=== PATIENT | female | born 1950 | race Caucasian/White ===

== ENCOUNTER → 2018-01-25 14:37 | Outpatient (CLI) | payer BC, SELFPAY ==
[2018-01-25 15:37] LABS: Absolute Lymphocyte Count 1.53 X10^3/ul (0.83-4.51); Absolute Neutrophil Count 2.5 X10^3/uL (2.0-7.7); Basophil# 0.02 X10^3/uL; Basophil% 0.4 % (0-1); Eosinophils% 2.1 % (0-5); Hematocrit 39.9 % (37-47); Hemoglobin 13.6 g/dl (12.0-15.0); Lymphocyte # 1.53 X10^3/ul (4.0); Lymphocyte % 32.8 % (19-41); Mean Corp Hgb Conc 34.1 g/gl (32-36); Mean Corpuscular Hgb 31.1 pg (27.0-32.0); Mean Corpuscular Volume 91.3 fL (81-99); Mean Platelet Vol. 9.2 fl (6.2-12.0); Monocyte# 0.53 X10^3/uL; Monocyte% 11.4 % (0-10); Neutrophil # 2.47 X10^3/uL (2.7-7.7); Neutrophil % 53.1 % (47-70); Platelet Count 210 K/mm3 (150-450); RBC Distribution Width CV 13.3 % (11.6-14.6); RBC Distribution Width SD 44.1 fl (35.1-43.9); Red Blood Count 4.37 M/mm3 (4.2-5.4); White Blood Count 4.7 K/mm3 (4.4-11.0)
[2018-01-25 15:47] LABS: POSITIVE COUNT NO; POSITIVE DIFFERENTIAL NO; POSITIVE MORPHOLOGY NO
[2018-01-25 16:04] LABS: ALB/GLOB Ratio 1.2 RATIO (0.9-2.4); AST(SGOT) 16 U/L (15-37); Alanine Aminotransfer ALT/SGPT 26 U/L (13-56); Albumin, Serum 3.9 g/dL (3.2-5.0); Alkaline Phosphatase 98 U/L (45-117); Anion Gap 8 (5-15); BUN 21 mg/dL (7-18); BUN/Creat Ratio 23.6 RATIO (10-20); Calcium,Total 8.8 mg/dL (8.5-10.1); Chloride 110 mmol/L (98-107); Creatinine, Serum 0.89 mg/dL (0.55-1.02); EST Glomerular Filtration Rate 68 mL/min (>60); Est Glom Filt Rate - Afr Amer 82 mL/min (>60); Globulin 3.2 g/dL (2.2-4.2); Glucose 92 mg/dL (74-106); Potassium 3.8 mmol/L (3.5-5.1); Protein, Total 7.1 g/dL (6.4-8.2); Sodium Level 145 mmol/L (136-145)
== END ==
PROVIDERS: Family Provider Family Medicine; PCP Family Medicine; Visit Provider Family Medicine
DX: R03.0 Elevated blood-pressure reading, without diagnosis of hypertension (principal)
CPT/HCPCS: 36415; 80053; 84443; 85025

== ENCOUNTER → 2018-05-20 14:39 | Outpatient (CLI) | payer BC, SELFPAY ==
--- NOTE | 2018-05-20 14:40 | BI_ITS ---
MAMMOGRAPHY - BILATERAL SCREENING 3-D TERRANCE SYNTHESIS REASON FOR EXAM: Female, 67 years old. Bilateral Screening 3-D tomosynthesis PERTINENT HISTORY: Asymptomatic. Right breast aspiration surgery 20+ years ago. No significant family history. TECHNIQUE: 2-D mammograms and 3-D Terrance synthesis of the breast (s) were performed. CAD was performed. COMPARISON: 09/09/2016. FINDINGS: The breast composition is composed of scattered fibroglandular density. Scattered benign appearing calcifications are seen. No dense spiculated dominant masses or suspicious microcalcification cluster are identified. No architectural distortion, asymmetric density, adenopathy, skin thickening or nipple retraction identified. There has been no significant change since the most recent prior study. BI/SCREENING MAMM (CAD), BILAT IMPRESSION: No mammographic sign of malignancy. Routine yearly mammograms recommended. ASSESSMENT CATEGORY: BIRADS Category 2: Benign. A letter regarding these results will be sent to the patient by the facility within 30 days. FOLLOW UP RECOMMENDATION: Yearly follow up mammogram recommended. (A) Negative mammographic results should not deter biopsy as a palpable lesion if present should be followed on clinical grounds and biopsy performed if clinically persistent for 3 months or increasing size. Approximately 10% of breast cancers are not detected by mammography. A normal mammogram should not delay biopsy of a clinically suspicious abnormality. Dense breast tissue mainstream neoplasm. Electronically Signed: Lalo Salcido, at 20:19 EDT Tel , Service support ,
== END ==
PROVIDERS: Family Provider Family Medicine; PCP Family Medicine; Referring Provider Family Medicine; Visit Provider Family Medicine
DX: Z12.31 Encounter for screening mammogram for malignant neoplasm of breast (principal)
CPT/HCPCS: 77063; 77067

== ENCOUNTER → 2018-06-28 17:12 | Outpatient (CLI) | payer BC, SELFPAY ==
--- NOTE | 2018-06-28 17:15 | RAD_ITS ---
STUDY: X-RAY - PELVIS REASON FOR EXAM: Female, 67 years old. Right hip pain TECHNIQUE: One view of the pelvis was obtained. COMPARISON: None. FINDINGS: There is a non-specific bowel gas pattern. Normal visualized soft tissue structures. Normal bilateral iliac wings, sacroiliac joints and visualized sacrum. Normal visualized bilateral superior and inferior pubic rami. Normal pubic symphysis. Normal ischial tuberosities. Normal visualized right femoral head. Normal right acetabulum. Normal right hip joint. Normal visualized left femoral head. Normal left acetabulum. Normal left hip joint. RAD/Pelvis 1 or 2 Views IMPRESSION: Normal x-ray examination of the pelvis. No fracture Electronically Signed: Thong Maguire MD at 7:28 EST Tel , Service support ,
--- NOTE | 2018-06-28 17:15 | RAD_ITS ---
STUDY: X-RAY - LUMBAR SPINE REASON FOR EXAM: Female, 67 years old. Back pain TECHNIQUE: 5 view(s) of the lumbar spine were obtained. COMPARISON: None FINDINGS: Normal lumbar lordosis. There is no substantial scoliosis. There is a normal alignment of the vertebrae. Normal vertebral bodies and endplates. Normal disc space heights. The soft tissue structures are unremarkable. RAD/L/S Spine Min 4 Views IMPRESSION: Normal x-ray examination of the lumbar spine. No fracture. No disc disease. Electronically Signed: Thong Maguire MD at 7:30 EST Tel , Service support ,
--- NOTE | 2018-06-28 17:15 | RAD_ITS ---
Right femur CLINICAL HISTORY: Pain. PROCEDURE: 4 views. FINDINGS: The hip and knee joints are normal. The femoral shaft is normal with no osteolytic or osteoblastic changes. No acute fractures. The soft tissues of the thigh are normal. IMPRESSION: The study is normal Electronically Signed: Thong Maguire MD at 7:29 EST Tel , Service support , RAD/Femur Min 2 Views
== END ==
PROVIDERS: Family Provider Family Medicine; PCP Family Medicine; Referring Provider Family Medicine; Visit Provider Family Medicine
DX: M25.551 Pain in right hip (principal); M79.604 Pain in right leg; M54.5 Low back pain
CPT/HCPCS: 72110; 72170; 73552

== ENCOUNTER → 2019-04-22 13:48 | Outpatient (CLI) | payer BC, SELFPAY ==
[2019-04-22 14:01] LABS: Bacteria 0 SEEN /hpf (None Seen); Mucous, Urine 0 SEEN /hpf (<or=2+); Red Blood Cells-Urine 0 SEEN /hpf (0-5)
[2019-04-22 15:10] LABS: Color, Urine Yellow (Yellow); Glucose, Dipstick Normal (Normal); Ketone-Dipstick Negative (Negative); Leukocyte Esterase-Dipstick 25 /ul (Negative); Nitrite-Dipstick Negative (Negative); Occult Blood-Urine Negative /ul (Negative); Protein-Dipstick Negative (Negative); Urine Bilirubin Dipstick Negative (Negative); Urine Clarity Clear (Clear); Urine Urobilinogen Normal (Normal); Urine pH 6.5 (5.0 - 8.0)
[2019-04-22 15:18] LABS: Absolute Lymphocyte Count 1.55 X10^3/uL (0.83-4.51); Absolute Neutrophil Count 1.6 X10^3/uL (2.0-7.7); Basophil# 0.04 X10^3/uL; Eosinophil# 0.17 X10^3/uL; Eosinophils% 4.4 % (0-5); Hemoglobin 13.2 g/dL (12.0-15.0); Lymphocyte # 1.55 X10^3/ul (4.0); Lymphocyte % 40.4 % (19-41); Mean Corpuscular Hgb 30.9 pg (27.0-32.0); Mean Corpuscular Volume 93.7 fL (81-99); Mean Platelet Vol. 9.8 fl (6.2-12.0); Monocyte# 0.45 X10^3/uL; Monocyte% 11.7 % (0-10); NRBC Flagged by Analyzer 0 % (0-5); Neutrophil # 1.62 X10^3/uL (2.7-7.7); Neutrophil % 42.2 % (47-70); Platelet Count 192 K/mm3 (150-450); RBC Distribution Width CV 13.3 % (11.6-14.6); RBC Distribution Width SD 45.6 fl (35.1-43.9); Red Blood Count 4.27 M/mm3 (4.2-5.4); White Blood Count 3.8 K/mm3 (4.4-11.0)
[2019-04-22 15:35] LABS: Squamous Epithelial Cells - UA 0-5 SEEN /hpf (5-10)
[2019-04-22 15:36] LABS: White Blood Cells 0-5 SEEN /hpf (0-5)
[2019-04-22 15:37] LABS: Transitional Epithelial - Ur 0-5 SEEN /hpf (0-5)
[2019-04-22 15:38] LABS: ALB/GLOB Ratio 1.1 RATIO (0.9-2.4); AST(SGOT) 15 U/L (15-37); Alanine Aminotransfer ALT/SGPT 19 U/L (13-56); Albumin, Serum 3.5 g/dL (3.2-5.0); Alkaline Phosphatase 92 U/L (45-117); Anion Gap 5 (5-15); BUN 14 mg/dL (7-18); BUN/Creat Ratio 17.2 RATIO (10-20); Calcium,Total 8.9 mg/dL (8.5-10.1); Chloride 110 mmol/L (98-107); Creatinine, Serum 0.82 mg/dL (0.55-1.02); EST Glomerular Filtration Rate 74 mL/min (>60); Est Glom Filt Rate - Afr Amer 90 mL/min (>60); Globulin 3.1 g/dL (2.2-4.2); Glucose 92 mg/dL (74-106); Potassium 3.8 mmol/L (3.5-5.1); Protein, Total 6.6 g/dL (6.4-8.2); Sodium Level 143 mmol/L (136-145)
== END ==
PROVIDERS: Family Provider Family Medicine; PCP Family Medicine
DX: L93.1 Subacute cutaneous lupus erythematosus (principal)
CPT/HCPCS: 36415; 80053; 81001; 85025; 86038

== ENCOUNTER → 2019-04-30 15:21 | Outpatient (CLI) | payer BC, SELFPAY ==
[2019-04-30 16:28] LABS: EXAGEN MAILED SPECIMEN
[2019-04-30 17:32] LABS: Color, Urine Yellow (Yellow); Glucose, Dipstick Normal (Normal); Ketone-Dipstick Negative (Negative); Leukocyte Esterase-Dipstick 25 /ul (Negative); Nitrite-Dipstick Negative (Negative); Occult Blood-Urine Negative /ul (Negative); Protein-Dipstick Negative (Negative); Specific Gravity, Urine 1.015 (1.002-1.030); Urine Bilirubin Dipstick Negative (Negative); Urine Clarity Clear (Clear); Urine Urobilinogen Normal (Normal)
[2019-04-30 17:33] LABS: Absolute Lymphocyte Count 1.29 X10^3/uL (0.83-4.51); Absolute Neutrophil Count 2.1 X10^3/uL (2.0-7.7); Basophil# 0.03 X10^3/uL; Basophil% 0.8 % (0-1); Eosinophil# 0.08 X10^3/uL; Eosinophils% 2.1 % (0-5); Hematocrit 41.5 % (37-47); Hemoglobin 13.9 g/dL (12.0-15.0); Lymphocyte # 1.29 X10^3/ul (4.0); Lymphocyte % 33.1 % (19-41); Mean Corp Hgb Conc 33.5 g/dL (32-36); Mean Corpuscular Hgb 31.2 pg (27.0-32.0); Mean Platelet Vol. 9.7 fl (6.2-12.0); Monocyte# 0.35 X10^3/uL; NRBC Flagged by Analyzer 0 % (0-5); Neutrophil # 2.14 X10^3/uL (2.7-7.7); Neutrophil % 54.7 % (47-70); Platelet Count 180 K/mm3 (150-450); RBC Distribution Width CV 12.7 % (11.6-14.6); RBC Distribution Width SD 43.5 fl (35.1-43.9); Red Blood Count 4.46 M/mm3 (4.2-5.4); White Blood Count 3.9 K/mm3 (4.4-11.0)
[2019-04-30 17:44] LABS: Protein, Urine (Random) 7.2 mg/dL (<11.9); Protein:Creat Ratio 88 mg/g CRE (0-200)
[2019-04-30 17:59] LABS: ALB/GLOB Ratio 1.2 RATIO (0.9-2.4); AST(SGOT) 15 U/L (15-37); Alanine Aminotransfer ALT/SGPT 23 U/L (13-56); Albumin, Serum 3.7 g/dL (3.2-5.0); Alkaline Phosphatase 90 U/L (45-117); BUN 10 mg/dL (7-18); BUN/Creat Ratio 12.1 RATIO (10-20); Calcium,Total 8.9 mg/dL (8.5-10.1); Chloride 109 mmol/L (98-107); Creatinine, Serum 0.82 mg/dL (0.55-1.02); EST Glomerular Filtration Rate 73 mL/min (>60); Est Glom Filt Rate - Afr Amer 89 mL/min (>60); Globulin 3.1 g/dL (2.2-4.2); Glucose 129 mg/dL (74-106); Potassium 3.4 mmol/L (3.5-5.1); Protein, Total 6.8 g/dL (6.4-8.2); Sodium Level 143 mmol/L (136-145)
[2019-04-30 18:00] LABS: Anion Gap 6 (5-15)
== END ==
PROVIDERS: Family Provider Family Medicine; PCP Family Medicine; Referring Provider Internal Medicine Rheumatology; Visit Provider Internal Medicine Rheumatology
DX: M06.4 Inflammatory polyarthropathy (principal); F32.89 Other specified depressive episodes; F41.9 Anxiety disorder, unspecified
CPT/HCPCS: 36415; 80053; 81002; 82570; 84156; 85025

== ENCOUNTER → 2019-08-23 07:59 | Outpatient (CLI) | payer BC, SELFPAY ==
--- NOTE | 2019-08-23 08:02 | BI_ITS ---
MAMMOGRAPHY - BILATERAL SCREENING REASON FOR EXAM: Female, 68 years old. Routine annual screening examination. PERTINENT HISTORY: Non-contributory. TECHNIQUE: Digital bilateral breast terrance (3D mammographic acquisition) in the CC and MLO projections. 2-D mediolateral oblique (MLO) and craniocaudad (CC) views of both breasts were obtained. CAD: Full Field Digital Mammography with Computer Added Detection was performed. COMPARISON: Comparison is made with prior study dated May 20, 2018 and September 01, 2016. FINDINGS: Breast Composition: There are scattered areas of fibroglandular density. There are no dominant masses or suspicious calcifications. No other significant abnormalities are identified. There has been no significant change since the prior study. BI/SCREEN MAMM (CAD) W/TERRANCE BILAT IMPRESSION: Stable bilateral screening mammogram. Yearly follow-up mammogram recommended. (A) ASSESSMENT CATEGORY: BIRADS Category 1: Negative. A letter regarding these results will be sent to the patient by the facility within 30 days. Approximately 10% of breast cancers are not detected by mammography. A normal mammogram should not delay biopsy of a clinically suspicious abnormality. [id number] Electronically Signed: Sohan Segura, at 9:42 EST , Service support ,
== END ==
PROVIDERS: Family Provider Family Medicine; PCP Family Medicine; Referring Provider Family Medicine; Visit Provider Family Medicine
DX: Z12.31 Encounter for screening mammogram for malignant neoplasm of breast (principal)
CPT/HCPCS: 77063; 77067

== ENCOUNTER → 2020-04-09 09:37 | Outpatient (CLI) | payer BC, SELFPAY ==
--- NOTE | 2020-04-09 09:41 | RAD_ITS ---
STUDY: X-RAY CHEST REASON FOR EXAM: Female, 69 years old. worsening sob TECHNIQUE: Frontal and lateral views of the chest. COMPARISON: None. FINDINGS: The lungs are clear and expanded. There is no demonstrated pleural abnormality. Normal size heart. Normal mediastinum and laura. Normal visualized pulmonary arteries. Normal visualized aortic arch and descending thoracic aorta. Normal visualized thoracic spine. Normal visualized ribs, clavicles, and shoulders. There is no demonstrated abnormality of the visualized soft tissue structures of the upper abdomen. RAD/Chest PA and Lateral IMPRESSION: Normal x-ray examination of the chest. Electronically Signed: Ronnie Dan MD at 18:55 EDT , Service support ,
[2020-04-09 12:03] LABS: Absolute Lymphocyte Count 1.34 X10^3/uL (0.83-4.51); Absolute Neutrophil Count 1.5 X10^3/uL (2.0-7.7); Basophil# 0.04 X10^3/uL; Basophil% 1.1 % (0-1); Eosinophil# 0.25 X10^3/uL; Eosinophils% 6.9 % (0-5); Hematocrit 42.3 % (37-47); Lymphocyte # 1.34 X10^3/ul (4.0); Lymphocyte % 37.1 % (19-41); Mean Corp Hgb Conc 33.1 g/dL (32-36); Mean Corpuscular Hgb 31.4 pg (27.0-32.0); Mean Corpuscular Volume 94.8 fL (81-99); Mean Platelet Vol. 9.7 fl (6.2-12.0); Monocyte# 0.44 X10^3/uL; Monocyte% 12.2 % (0-10); NRBC Flagged by Analyzer 0 % (0-5); Neutrophil # 1.53 X10^3/uL (2.7-7.7); Neutrophil % 42.4 % (47-70); Platelet Count 183 K/mm3 (150-450); RBC Distribution Width CV 13.1 % (11.6-14.6); RBC Distribution Width SD 45.7 fl (35.1-43.9); Red Blood Count 4.46 M/mm3 (4.2-5.4); White Blood Count 3.6 K/mm3 (4.4-11.0)
[2020-04-09 12:38] LABS: ALB/GLOB Ratio 1.2 RATIO (0.9-2.4); AST(SGOT) 15 U/L (15-37); Alanine Aminotransfer ALT/SGPT 24 U/L (13-56); Albumin, Serum 3.7 g/dL (3.2-5.0); Alkaline Phosphatase 94 U/L (45-117); Anion Gap 6 (5-15); BUN 14 mg/dL (7-18); BUN/Creat Ratio 17.9 RATIO (10-20); Calcium,Total 8.7 mg/dL (8.5-10.1); Chloride 110 mmol/L (98-107); Creatinine, Serum 0.78 mg/dL (0.55-1.02); EST Glomerular Filtration Rate 78 mL/min (>60); Est Glom Filt Rate - Afr Amer 94 mL/min (>60); Globulin 3.1 g/dL (2.2-4.2); Glucose 87 mg/dL (74-106); Magnesium 2.2 mg/dL (1.6-2.6); Potassium 3.7 mmol/L (3.5-5.1); Protein, Total 6.8 g/dL (6.4-8.2); Sodium Level 143 mmol/L (136-145); T4 Free Direct 0.89 ng/dL (0.76-1.46); Thyroid Stim Hormone (TSH) 1.44 uIU/mL (0.358-3.74)
[2020-04-09 17:33] LABS: CRP < 2.90 mg/L (0.0-3.0)
[2020-04-13 04:49] LABS: Endomysial Antibody IgA Negative (Negative); Immunoglobulin A 281 mg/dL (87-352); t-Transglutaminase IgA <2 U/mL (0-3)
== END ==
PROVIDERS: Internal Medicine Gastroenterology; PCP Family Medicine; Referring Provider Family Medicine; Visit Provider Family Medicine
DX: R06.00 Dyspnea, unspecified (principal); I49.49 Other premature depolarization; R53.83 Other fatigue; R19.7 Diarrhea, unspecified
CPT/HCPCS: 36415; 71046; 80053; 82784; 83516; 83735; 84439; 84443; 85025; 86140; 86255

== ENCOUNTER → 2020-04-26 | Outpatient (CLI) | payer BC, SELFPAY ==
--- NOTE | 2020-04-26 | COLBX_PTH ---
PATIENT: AMANDA VAUGHN LOC: [facility] U#:[id number] AGE/SX: 69/F ROOM: RE04/26/[address]: Dr. Wood Armstrong MD : 1950 BED: DIS: 04/26/2020 SPEC #: [id number] RECD: 04/26/20 15:08 STATUS: TOM CHARLTON #: [id number] SAW: 04/26/20 00:[address]: Wood Armstrong DEPT: SURGICAL PATHOLOGY RECD BY: Santino Guerra ENTERED: 04/27/20 08:40 SP TYPE: COLON BX OTHR DR: Dr. Adryan Crenshaw MD [facility] Tissues: COLON BIOPSY Procedures: Surgery Specimen Level IV HEADER OPERATION: Colonoscopy with biopsies PRE-OP DIAGNOSIS: Diarrhea, abdominal pain, rule out microscopic colitis TISSUE SUBMITTED: Right and left colon MICROSCOPIC DIAGNOSIS Right and left colon, biopsy: Consistent with lymphocytic colitis. See comment. AM:rishi 9/16/20 COMMENT Increased eosinophils are seen in the mucosa with rare vague microscopic granulomas. Features of chronic active inflammatory bowel disease are not present. Increased eosinophils in lamina propria and focally in crypts. Small collections of histiocytes are also present in the mucosa. Case has been reviewed in consultation with Dr. Allan who concurs with the above diagnosis. IDC:GWEN MICROSCOPIC DESCRIPTION Slides are reviewed. GROSS DESCRIPTION Received in fixative is one container labeled with the patient's name and designated right and left colon. The specimen consists of multiple irregular fragments of light wong soft tissue that in aggregate measure 2 x 0.4 x 0.1 cm. The specimen is totally submitted in one cassette. / GWEN:rishi 04/27/20 TC:3 CPT: 97816
== END | disposition home or self-care (01) ==
LOC: LABSPEC 15:23
PROVIDERS: PCP Family Medicine; Referring Provider Internal Medicine Gastroenterology; Visit Provider Internal Medicine Gastroenterology
DX: R19.7 Diarrhea, unspecified (principal); R10.9 Unspecified abdominal pain
CPT/HCPCS: 88305

== ENCOUNTER → 2020-06-09 13:45 | Outpatient (CLI) | payer BC, SELFPAY ==
--- NOTE | 2020-06-09 14:09 | ECHOD_ITS ---
Reason For Study: SOB Procedure This was a 2D Doppler, Color Flow transthoracic echocardiogram. Exam performed in department. Left Ventricle Normal LV size. The estimated ejection fraction is 60 %. No evidence for diastolic dysfunction. No regional wall motion abnormalities noted. Right Ventricle Normal RV size. Normal systolic function. Atria Normal left atrium. Normal right atrium. No doppler evidence for ASD. Mitral Valve There is no mitral valve stenosis. Trivial mitral valve insufficiency. Tricuspid Valve There is no tricuspid stenosis. Mild tricuspid valve insufficiency. Pulmonary artery systolic pressure is 30 mmHg. Aortic Valve Trisinus/trileaflet aortic valve. There is no aortic stenosis. No aortic valve insufficiency. Pulmonic Valve There is no pulmonic valvular stenosis. No pulmonic valve insufficiency. Great Vessels Normal aortic root. Pericardium/Pleural No pericardial effusion. MMode/2D Measurements & Calculations LVIDd: 4.5 cm IVSd: 0.84 cm Ao root diam: 2.9 cm LVIDs: 3.0 cm LVPWd: 0.91 cm RVDd: 2.9 cm FS: 32.8 % LAV(MOD-bp): 30.0 ml LVAd ap4: 25.7 cm2 SV(MOD-sp4): 41.8 ml LAV(MOD-bp) Indexed: 18.0 ml/m2 EDV(MOD-sp4): 71.0 ml LAV(MOD-sp2): 29.5 ml EDV(sp4-el): 74.8 ml LAV(MOD-sp4): 29.5 ml LVAs ap4: 14.3 cm2 ESV(MOD-sp4): 29.2 ml ESV(sp4-el): 27.9 ml EF(MOD-sp4): 58.9 % EF(sp4-el): 62.7 % SV(sp4-el): 46.9 ml LA A4 area: 13.0 cm2 LA dimension(2D): 3.3 cm RA A4 area: 11.9 cm2 Time Measurements MV dec time: 0.26 sec Doppler Measurements & Calculations MV E max bandar: 65.7 cm/sec Lat Peak E' Bandar: 5.7 cm/sec Med Peak E' Bandar: 4.3 cm/sec MV A max bandar: 73.3 cm/sec E/E' lat: 11.5 E/E' med: 15.3 MV E/A: 0.90 Ao V2 max: 129.4 cm/sec LV V1 max: 88.8 cm/sec PA V2 max: 92.8 cm/sec Ao max P.7 mmHg LV V1 max P.2 mmHg PI end-d bandar: 97.9 cm/sec TR max bandra: 251.4 cm/sec TR max P.3 mmHg Interpretation Summary The estimated ejection fraction is 60 %. No evidence for diastolic dysfunction. Trivial mitral valve insufficiency. Mild tricuspid valve insufficiency. Pulmonary artery systolic pressure is 30 mmHg. Ordering Physician: Adryan Crenshaw Referring Physician: Adryan Crenshaw Performed By: Fanny Ramírez RDCS
== END ==
PROVIDERS: PCP Family Medicine; Referring Provider Family Medicine; Visit Provider Family Medicine
DX: R06.00 Dyspnea, unspecified (principal); I49.49 Other premature depolarization
CPT/HCPCS: 93306

== ENCOUNTER → 2020-06-16 08:24 | Outpatient (CLI) | payer BC, SELFPAY ==
--- NOTE | 2020-06-16 08:30 | BD_ITS ---
STUDY: DUAL ENERGY X-RAY ABSORPTIOMETRY / DXA REASON FOR EXAM: Female, 69 years old. 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 COMPARISON: None. FINDINGS: Lumbar Spine (L1-L4): g/cm2 (0.868) / T-score (-2.5) / Z-score (-0.9) Findings are suggestive of osteopenia with a high fracture risk. Left Femur Total: g/cm2 (0.769) / T-score (-1.9) / Z-score (-0.5) Left Femoral Neck: g/cm2 (0.728) / T-score (-2.2) / Z-score (-0.6) Right Femur Total: g/cm2 (0.704) / T-score (-2.4) / Z-score (-1.0) Right Femoral Neck: g/cm2 (0.703) / T-score (-2.4) / Z-score (-0.8) BD/Dexa Bone Density Study IMPRESSION: The patient is considered osteopenic as outlined below according to World Mahamed Organization (WHO) criteria with a high fracture risk. Reference Information: The T-score is the number of standard deviations above or below the standard which is normal for young adults at their peak bone mineral density. The World Health Organization (WHO) interprets the T-scores as follows: Above -1 Normal bone density Between -1 and -2.5 Osteopenia Equal to / or below -2.5 Osteoporosis As a practical clinical guideline, osteopenia may be graded as follows: Mild -1 through -1.5 Moderate -1.6 through -2.0 Severe -2.1 through -2.4 The Z-score is the number of standard deviations above or below age-matched controls. A Z-score of less than -1.5 would be considered abnormal. References: 1. NIH Osteoporosis and Related Bone Diseases www osteo.org 2. International Society for Clinical Densitometry www iscd.org 3. National Osteoporosis Foundation www nof.org Electronically Signed: Sohan Segura, at 11:13 EST , Service support ,
== END ==
PROVIDERS: PCP Family Medicine; Referring Provider Family Medicine; Visit Provider Family Medicine
DX: K52.832 Lymphocytic colitis (principal); Z79.52 Long term (current) use of systemic steroids
CPT/HCPCS: 77080

== ENCOUNTER → 2020-06-30 07:10 | Outpatient (CLI) | payer BC, SELFPAY ==
--- NOTE | 2020-06-30 10:05 | STRESSREP ---
Stress Test Report Date: 06-30-2020 Procedure: Exercise tolerance test/imaging study Indications: Shortness of breath/dyspnea on exertion Consent: Per the patient Procedure: The patient exercised on a Claudio protocol for 6 minutes and 29 seconds completing Stage II and 29 seconds of Stage III achieving a peak heart rate of 141 bpm (92% predicted maximal heart rate) with a peak blood pressure 178/88 mmHg and a peak MET capacity of 7 METs. The baseline ECG demonstrated sinus bradycardia. The peak exercise ECG demonstrated no obvious ECG changes. There was a rare PAC during recovery. The functional capacity was considered average. There was no complaint of chest discomfort during exercise or recovery. The examination was discontinued secondary to dyspnea. Impression: 1. Technically adequate (percent predicted maximal heart rate greater than 85%) exercise tolerance test 2. Peak exercise ECG with no obvious ECG changes 3. There was a rare PAC during recovery 4. Nuclear images pending Myocardial perfusion imaging study: Technique: The patient was injected with 11.8 mCi of technetium 99m Cardiolite and subsequently rest SPECT Cardiolite nuclear imaging was obtained in the horizontal long, vertical long, and short axis views. The patient exercised on a Claudio protocol for 6 minutes and 29 seconds completing Stage II and 29 seconds of Stage III achieving a peak heart rate of 141 bpm (92% predicted maximal heart rate) with a peak blood pressure 178/88 mmHg and a peak MET capacity of 7 METs. The patient was injected with 32.1 mCi of technetium 99m Cardiolite and subsequently stress SPECT Cardiolite nuclear imaging was obtained in the horizontal long, vertical long, and short axis views. A gated Cardiolite study at peak stress was obtained. Interpretation: Rest and stress SPECT Cardiolite nuclear imaging status post realignment, normalization, and attenuation correction, demonstrates the appearance of a small area of subtle diminished tracer uptake near the apical segments appears to be somewhat more prominent at rest as opposed to stress and otherwise without significant change. There is end systolic thickening and brightening. The gated Cardiolite study demonstrates myocardial thickening and inward wall motion. The reported LVEF is 68%. Impression: 1. Rest and stress SPECT Cardiolite nuclear imaging demonstrate myocardial perfusion changes appearing compatible with the effects of shifting soft tissue attenuation/artifact and/or physiologic apical thinning with no myocardial perfusion changes considered diagnostic for associated stress-induced myocardial ischemia. 2. The gated Cardiolite study reports an LVEF of 68%. This note was generated with Dragon dictation software. It may contain incorrect words, spelling, and punctuation that were not noted in checking the note before signing.
== END ==
PROVIDERS: PCP Family Medicine; Referring Provider Family Medicine; Visit Provider Family Medicine
DX: R06.00 Dyspnea, unspecified (principal)
CPT/HCPCS: 78452; 93017; A9500; A4216

== ENCOUNTER → 2020-09-24 09:07 | Outpatient (CLI) | payer BC, SELFPAY ==
[2020-09-24 12:33] LABS: Vitamin D,25 Hydroxy 17.5 ng/mL
[2020-09-24 12:35] LABS: ALB/GLOB Ratio 1.1 RATIO (0.9-2.4); AST(SGOT) 19 U/L (15-37); Alanine Aminotransfer ALT/SGPT 24 U/L (13-56); Albumin, Serum 3.6 g/dL (3.2-5.0); Alkaline Phosphatase 99 U/L (45-117); Anion Gap 6 (5-15); BUN 14 mg/dL (7-18); BUN/Creat Ratio 16.6 RATIO (10-20); Calcium,Total 8.9 mg/dL (8.5-10.1); Chloride 108 mmol/L (98-107); Cholesterol 205 mg/dL (200); Creatinine, Serum 0.84 mg/dL (0.55-1.02); EST Glomerular Filtration Rate 71 mL/min (>60); Est Glom Filt Rate - Afr Amer 86 mL/min (>60); Globulin 3.2 g/dL (2.2-4.2); Glucose 90 mg/dL (74-106); High Density Lipoprotein 77 mg/dL; Potassium 3.9 mmol/L (3.5-5.1); Protein, Total 6.8 g/dL (6.4-8.2); Sodium Level 140 mmol/L (136-145); T4 Free Direct 0.97 ng/dL (0.76-1.46); Thyroid Stim Hormone (TSH) 1.15 uIU/mL (0.358-3.74); Triglycerides 58 mg/dL; Very Low Density Lipoprotein 12 mg/dL (5-40)
== END ==
PROVIDERS: PCP Family Medicine; Visit Provider Family Medicine
DX: Z13.220 Encounter for screening for lipoid disorders (principal); M81.0 Age-related osteoporosis without current pathological fracture; F32.9 Major depressive disorder, single episode, unspecified
CPT/HCPCS: 36415; 80053; 80061; 82306; 84439; 84443

== ENCOUNTER → 2020-10-01 11:16 | Outpatient (CLI) | payer BC, SELFPAY ==
--- NOTE | 2020-10-01 11:17 | BI_ITS ---
MAMMOGRAPHY - BILATERAL SCREENING REASON FOR EXAM: Female, 69 years old. Routine annual screening examination. PERTINENT HISTORY: Non-contributory. TECHNIQUE: Digital bilateral breast terrance (3D mammographic acquisition) in the CC and MLO projections. 2-D mediolateral oblique (MLO) and craniocaudad (CC) views of both breasts were obtained. CAD: Full Field Digital Mammography with Computer Added Detection was performed. COMPARISON: Comparison is made with prior study dated 08/23/2019 and 05/20/2018. FINDINGS: Breast Composition: There are scattered areas of fibroglandular density. There are no dominant masses or suspicious calcifications. No other significant abnormalities are identified. There has been no significant change since the prior study. BI/SCRN MAMM (CAD)W/TERRANCE BILAT IMPRESSION: Stable bilateral screening mammogram. Yearly follow-up mammogram recommended. (A) ASSESSMENT CATEGORY: BIRADS Category 1: Negative. A letter regarding these results will be sent to the patient by the facility within 30 days. Approximately 10% of breast cancers are not detected by mammography. A normal mammogram should not delay biopsy of a clinically suspicious abnormality. [id number] Electronically Signed: Sohan Segura MD at 12:19 EST , Service support ,
== END ==
PROVIDERS: PCP Family Medicine; Referring Provider Family Medicine; Visit Provider Family Medicine
DX: Z12.31 Encounter for screening mammogram for malignant neoplasm of breast (principal)
CPT/HCPCS: 77063; 77067

== ENCOUNTER 2022-07-23 14:09 | Emergency (ER) | payer BC, SELFPAY ==
[2022-07-23 14:10] VITALS: BP 186/115; PULSE 70; RESP 18; TEMP 35.7; O2SAT 100; BMI 26.8
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
[2022-07-23] MEDS: Lidocaine 5% Patch 1 PATCH TOPICAL (14:36)
--- NOTE | 2022-07-23 14:39 | RAD_ITS ---
STUDY: X-RAY - UNILATERAL RIBS ( LEFT ) WITH CHEST REASON FOR EXAM: Female, 71 years old. rib pain LEFT RIB PAIN WHEN SHE TAKES A DEEP BREATH SINCE LAST NIGHT TECHNIQUE - RIBS: 2 view(s) of the ribs. TECHNIQUE - CHEST: Single PA view of the chest. COMPARISON: Chest x-ray dated April 09, 2020 FINDINGS - RIBS: Normal visualized ribs without a demonstrated fracture. FINDINGS - CHEST: The lungs are clear and expanded. There is no demonstrated pleural abnormality. Normal size heart. Normal mediastinum and laura. Normal visualized pulmonary arteries. There is atherosclerotic calcification of the aortic arch with tortuosity. There is demineralization of the osseous structures. Normal visualized ribs, clavicles, and shoulders. There is no demonstrated abnormality of the visualized soft tissue structures of the upper abdomen. RAD/Ribs Uni Min 3V w/PA Chest IMPRESSION: RIBS: Normal x-ray examination of the ribs. CHEST: No acute process of the chest Electronically Signed: Cyrus Marcelo MD at 15:23 EST ,
[2022-07-23 15:28] VITALS: BP 157/91; PULSE 77; O2SAT 99
== END 2022-07-23 15:36 | disposition home or self-care (01) ==
PROVIDERS: Emergency Provider Emergency Medicine; PCP Family Medicine; Visit Provider Emergency Medicine
DX: S22.39XA Fracture of one rib, unspecified side, initial encounter for closed fracture (principal); S20.212A Contusion of left front wall of thorax, initial encounter; X58.XXXA Exposure to other specified factors, initial encounter; Y93.41 Activity, dancing; Y92.89 Other specified places as the place of occurrence of the external cause
CPT/HCPCS: 71101; 99283; A4216

== ENCOUNTER → 2023-01-03 | Outpatient (CLI) | payer BC, SELFPAY ==
[2023-01-03 18:03] LABS: Vitamin D,25 Hydroxy 45.4 ng/mL
[2023-01-03 18:12] LABS: Hemoglobin A1c 5.4 % (3.8-5.6)
[2023-01-03 18:21] LABS: ALB/GLOB Ratio 1.1 RATIO (0.9-2.4); AST(SGOT) 20 U/L (15-37); Alanine Aminotransfer ALT/SGPT 26 U/L (13-56); Albumin, Serum 3.6 g/dL (3.2-5.0); Alkaline Phosphatase 78 U/L (45-117); Anion Gap 7 (5-15); BUN 25 mg/dL (7-18); BUN/Creat Ratio 29.9 RATIO (10-20); Calcium,Total 9.2 mg/dL (8.5-10.1); Chloride 112 mmol/L (98-107); Cholesterol 188 mg/dL (200); Creatinine, Serum 0.84 mg/dL (0.55-1.02); EST Glomerular Filtration Rate 71 mL/min (>60); Est Glom Filt Rate - Afr Amer 86 mL/min (>60); Globulin 3.3 g/dL (2.2-4.2); Glucose 95 mg/dL (74-106); High Density Lipoprotein 72 mg/dL; Potassium 3.8 mmol/L (3.5-5.1); Protein, Total 6.9 g/dL (6.4-8.2); Sodium Level 143 mmol/L (136-145); Thyroid Stim Hormone (TSH) 1.34 uIU/mL (0.358-3.74); Triglycerides 78 mg/dL; Very Low Density Lipoprotein 16 mg/dL (5-40)
== END | disposition home or self-care (01) ==
LOC: MTLAB 16:01
PROVIDERS: PCP Family Medicine; Referring Provider Family Medicine; Visit Provider Family Medicine
DX: M81.0 Age-related osteoporosis without current pathological fracture (principal); Z13.1 Encounter for screening for diabetes mellitus; Z13.220 Encounter for screening for lipoid disorders; Z13.29 Encounter for screening for other suspected endocrine disorder
CPT/HCPCS: 36415; 80053; 80061; 82306; 83036; 84443

== ENCOUNTER → 2023-01-09 | Outpatient (CLI) | payer BC, SELFPAY ==
--- NOTE | 2023-01-09 13:59 | US_ITS ---
EXAM: US SOFT TISSUES HEAD AND NECK, THYROID CLINICAL INDICATION: Enlarged thyroid TECHNIQUE: Greyscale and color doppler imaging was performed of the thyroid gland. COMPARISON: No relevant prior studies available. FINDINGS: LEFT THYROID LOBE: Left lobe measures 4.0 x 1.4 x 0.8 cm. Homogeneous echotexture with normal vascularity. No thyroid nodules are present. RIGHT THYROID LOBE: The right lobe measures 5.1 x 1.6 x 1.1 cm. Homogeneous echotexture with normal vascularity. No thyroid nodules are present. ISTHMUS: The thyroid isthmus measures 2.5 mm. No thyroid nodules are present. US/Thyroid IMPRESSION: Normal thyroid ultrasound. Electronically Signed: Dane Eddy MD at 1:20 EDT ,
== END | disposition home or self-care (01) ==
LOC: US 13:57
PROVIDERS: PCP Family Medicine; Referring Provider Family Medicine; Visit Provider Family Medicine
DX: E04.9 Nontoxic goiter, unspecified (principal)
CPT/HCPCS: 76536

== ENCOUNTER → 2023-02-21 | Outpatient (CLI) | payer BC, SELFPAY ==
[2023-02-21 11:49] LABS: Bacteria 0 SEEN /hpf (None Seen); Mucous, Urine 0 SEEN /hpf (<or=2+); Red Blood Cells-Urine 0 SEEN /hpf (0-5); Squamous Epithelial Cells - UA 0 SEEN /hpf (5-10)
[2023-02-21 15:13] LABS: Absolute Lymphocyte Count 1.27 X10^3/uL (0.83-4.51); Absolute Neutrophil Count 1.9 X10^3/uL (2.0-7.7); Basophil# 0.03 X10^3/uL; Basophil% 0.8 % (0-1); Eosinophil# 0.09 X10^3/uL; Eosinophils% 2.4 % (0-5); Hematocrit 41.2 % (37-47); Hemoglobin 13.5 g/dL (12.0-15.0); Lymphocyte # 1.27 X10^3/ul (0.83-4.51); Mean Corp Hgb Conc 32.8 g/dL (32-36); Mean Corpuscular Hgb 31.1 pg (27.0-32.0); Mean Corpuscular Volume 94.9 fL (81-99); Mean Platelet Vol. 9.8 fl (6.2-12.0); Monocyte# 0.47 X10^3/uL; Monocyte% 12.6 % (0-10); NRBC Flagged by Analyzer 0 % (0-5); Neutrophil # 1.86 X10^3/uL (2.7-7.7); Neutrophil % 49.9 % (47-70); Platelet Count 201 K/mm3 (150-450); RBC Distribution Width CV 13.7 % (11.6-14.6); RBC Distribution Width SD 48.4 fl (35.1-43.9); Red Blood Count 4.34 M/mm3 (4.2-5.4); White Blood Count 3.7 K/mm3 (4.4-11.0)
[2023-02-21 15:18] LABS: Color, Urine Yellow (Yellow); Glucose, Dipstick Normal (Normal); Ketone-Dipstick Negative (Negative); Leukocyte Esterase-Dipstick 100 /ul (Negative); Nitrite-Dipstick Negative (Negative); Occult Blood-Urine Negative /ul (Negative); Protein-Dipstick Negative (Negative); Specific Gravity, Urine 1.015 (1.002-1.030); Urine Bilirubin Dipstick Negative (Negative); Urine Clarity Clear (Clear); Urine Urobilinogen Normal (Normal); Urine pH 6.5 (5.0 - 8.0)
[2023-02-21 15:41] LABS: ALB/GLOB Ratio 1.1 RATIO (0.9-2.4); AST(SGOT) 18 U/L (15-37); Alanine Aminotransfer ALT/SGPT 20 U/L (13-56); Albumin, Serum 3.5 g/dL (3.2-5.0); Alkaline Phosphatase 76 U/L (45-117); Anion Gap 5 (5-15); BUN 16 mg/dL (7-18); BUN/Creat Ratio 19.3 RATIO (10-20); Calcium,Total 8.7 mg/dL (8.5-10.1); Chloride 110 mmol/L (98-107); Creatinine, Serum 0.83 mg/dL (0.55-1.02); EST Glomerular Filtration Rate 72 mL/min (>60); Est Glom Filt Rate - Afr Amer 87 mL/min (>60); Globulin 3.3 g/dL (2.2-4.2); Glucose 96 mg/dL (74-106); Potassium 3.8 mmol/L (3.5-5.1); Protein, Total 6.8 g/dL (6.4-8.2); Sodium Level 141 mmol/L (136-145)
[2023-02-21 15:43] LABS: White Blood Cells 0-5 SEEN /hpf (0-5)
== END | disposition home or self-care (01) ==
LOC: MTLAB 11:42
PROVIDERS: PCP Family Medicine; Referring Provider Physician Assistant; Visit Provider Physician Assistant
DX: L93.1 Subacute cutaneous lupus erythematosus (principal)
CPT/HCPCS: 36415; 80053; 81001; 85025; 86038; 86225; 86235

== ENCOUNTER → 2023-02-28 | Outpatient (CLI) | payer BC, SELFPAY ==
[2023-02-28 12:36] LABS: Absolute Lymphocyte Count 1.21 X10^3/uL (0.83-4.51); Absolute Neutrophil Count 1.7 X10^3/uL (2.0-7.7); Basophil# 0.05 X10^3/uL; Basophil% 1.3 % (0-1); Eosinophil# 0.09 X10^3/uL; Eosinophils% 2.3 % (0-5); Hemoglobin 14.7 g/dL (12.0-15.0); Lymphocyte # 1.21 X10^3/ul (0.83-4.51); Lymphocyte % 31.5 % (19-41); Mean Corp Hgb Conc 32.7 g/dL (32-36); Mean Corpuscular Volume 94.9 fL (81-99); Mean Platelet Vol. 9.3 fl (6.2-12.0); Monocyte# 0.73 X10^3/uL; NRBC Flagged by Analyzer 0 % (0-5); Neutrophil # 1.74 X10^3/uL (2.7-7.7); Neutrophil % 45.4 % (47-70); Platelet Count 227 K/mm3 (150-450); RBC Distribution Width CV 13.5 % (11.6-14.6); RBC Distribution Width SD 47.4 fl (35.1-43.9); Red Blood Count 4.74 M/mm3 (4.2-5.4); White Blood Count 3.8 K/mm3 (4.4-11.0)
[2023-02-28 12:41] LABS: Color, Urine Yellow (Yellow); Glucose, Dipstick Normal (Normal); Ketone-Dipstick Negative (Negative); Leukocyte Esterase-Dipstick 25 /ul (Negative); Nitrite-Dipstick Negative (Negative); Occult Blood-Urine Negative /ul (Negative); Protein-Dipstick Negative (Negative); Specific Gravity, Urine 1.015 (1.002-1.030); Urine Bilirubin Dipstick Negative (Negative); Urine Clarity Clear (Clear); Urine Urobilinogen Normal (Normal)
[2023-02-28 12:57] LABS: ALB/GLOB Ratio 1.1 RATIO (0.9-2.4); AST(SGOT) 17 U/L (15-37); Alanine Aminotransfer ALT/SGPT 27 U/L (13-56); Albumin, Serum 3.8 g/dL (3.2-5.0); Alkaline Phosphatase 73 U/L (45-117); Anion Gap 7 (5-15); BUN 20 mg/dL (7-18); BUN/Creat Ratio 21.3 RATIO (10-20); Calcium,Total 9.3 mg/dL (8.5-10.1); Chloride 105 mmol/L (98-107); Creatinine, Serum 0.94 mg/dL (0.55-1.02); EST Glomerular Filtration Rate 62 mL/min (>60); Est Glom Filt Rate - Afr Amer 75 mL/min (>60); Globulin 3.4 g/dL (2.2-4.2); Glucose 91 mg/dL (74-106); Potassium 3.9 mmol/L (3.5-5.1); Protein, Total 7.2 g/dL (6.4-8.2); Sodium Level 140 mmol/L (136-145)
== END | disposition home or self-care (01) ==
LOC: MTLAB 09:57
PROVIDERS: PCP Family Medicine; Referring Provider Physician Assistant; Visit Provider Physician Assistant
DX: L93.1 Subacute cutaneous lupus erythematosus (principal)
CPT/HCPCS: 36415; 80053; 81002; 85025; 86038; 86225

== ENCOUNTER → 2023-05-29 | Outpatient (CLI) | payer BC, SELFPAY ==
--- NOTE | 2023-05-29 08:06 | BI_ITS ---
MAMMOGRAPHY - BILATERAL SCREENING 3-D TOMOSYNTHESIS REASON FOR EXAM: Female, 72 years old. annual mammogram PERTINENT HISTORY: No significant family history. TECHNIQUE: 2-D mammograms and 3-D Tomosynthesis of the breast (s) were performed. CAD was performed. COMPARISON: 10/01/2020 FINDINGS: The breast composition is composed of scattered fibroglandular density. Scattered benign calcifications are seen. No dense spiculated masses or suspicious microcalcifications are identified. No architectural distortion is identified. There is no skin thickening or retraction. There has been no significant change since the prior study. BI/SCRN MAMM (CAD)W/TERRANCE BILAT IMPRESSION: No mammographic signs of malignancy. Routine yearly mammograms recommended. ASSESSMENT CATEGORY: BIRADS Category 1: Negative. A letter regarding these results will be sent to the patient by the facility within 30 days. FOLLOW UP RECOMMENDATION: Yearly follow up mammogram recommended. (A) Approximately 10% of breast cancers are not detected by mammography. A normal mammogram should not delay biopsy of a clinically suspicious abnormality. Electronically Signed: Neftaly Anderson MD at 14:11 EDT ,
== END | disposition home or self-care (01) ==
LOC: OPBI 08:06
PROVIDERS: PCP Family Medicine; Referring Provider Family Medicine; Visit Provider Family Medicine
DX: Z12.31 Encounter for screening mammogram for malignant neoplasm of breast (principal)
CPT/HCPCS: 77063; 77067

== ENCOUNTER → 2023-05-30 | Outpatient (CLI) | payer BC, SELFPAY ==
[2023-05-30 12:36] LABS: Absolute Lymphocyte Count 1.65 X10^3/uL (0.83-4.51); Basophil# 0.05 X10^3/uL; Basophil% 1.2 % (0-1); Eosinophil# 0.12 X10^3/uL; Eosinophils% 2.8 % (0-5); Hematocrit 43.3 % (37-47); Hemoglobin 14.3 g/dL (12.0-15.0); Lymphocyte # 1.65 X10^3/ul (0.83-4.51); Mean Corpuscular Hgb 31.2 pg (27.0-32.0); Mean Corpuscular Volume 94.5 fL (81-99); Mean Platelet Vol. 9.2 fl (6.2-12.0); Monocyte# 0.44 X10^3/uL; Monocyte% 10.4 % (0-10); NRBC Flagged by Analyzer 0 % (0-5); Neutrophil # 1.97 X10^3/uL (2.7-7.7); Neutrophil % 46.6 % (47-70); Platelet Count 214 K/mm3 (150-450); RBC Distribution Width CV 13.2 % (11.6-14.6); Red Blood Count 4.58 M/mm3 (4.2-5.4); White Blood Count 4.2 K/mm3 (4.4-11.0)
[2023-05-30 12:56] LABS: ALB/GLOB Ratio 1.1 RATIO (0.9-2.4); AST(SGOT) 15 U/L (15-37); Alanine Aminotransfer ALT/SGPT 25 U/L (13-56); Albumin, Serum 3.7 g/dL (3.2-5.0); Alkaline Phosphatase 71 U/L (45-117); Anion Gap 4 (5-15); BUN 24 mg/dL (7-18); BUN/Creat Ratio 25.8 RATIO (10-20); Calcium,Total 9.5 mg/dL (8.5-10.1); Chloride 107 mmol/L (98-107); Creatinine, Serum 0.93 mg/dL (0.55-1.02); EST Glomerular Filtration Rate 63 mL/min (>60); Est Glom Filt Rate - Afr Amer 76 mL/min (>60); Globulin 3.4 g/dL (2.2-4.2); Glucose 102 mg/dL (74-106); Protein, Total 7.1 g/dL (6.4-8.2); Sodium Level 141 mmol/L (136-145); Thyroid Stim Hormone (TSH) 0.83 uIU/mL (0.358-3.74)
[2023-05-30 12:59] LABS: Vitamin B12 389 pg/mL (211-911)
== END | disposition home or self-care (01) ==
LOC: MTLAB 10:21 → MFPLAB 12:30
PROVIDERS: PCP Family Medicine; Referring Provider Nurse Practitioner Family; Visit Provider Nurse Practitioner Family
DX: R41.3 Other amnesia (principal)
CPT/HCPCS: 36415; 80053; 82607; 84443; 85025

== ENCOUNTER → 2025-05-15 | Outpatient (CLI) | payer OTHER, SELFPAY ==
--- OUTSIDE RECORDS SUMMARY | 2025-05-15 10:27 | XMS RPT_ITS | CCD ---
Author Organization [facility] Care Team Providers Care Paid Search Marketing Strategist Name Role Phone Brisa Ramirez Unavailable Alejandro Zurita Unavailable ANTONELLA Ayers Unavailable Unavailable Unavailable Unavailable Saige Ortiz Primary Care Unavailable Radha Alcantar Referring Unavailable Radha Alcantar Attending Unavailable Kiko Ortega Attending Unavailable Adryan Crenshaw Primary Care Unavailable Saige Ortiz Primary Care Unavailable Saige Ortiz Referring Unavailable Saige Ortiz Attending Unavailable Saige Ortiz Primary Care Unavailable Saige Ortiz Referring Unavailable Saige Ortiz Attending Unavailable Radha Alcantar Referring Unavailable Radha Alcantar Attending Unavailable Saige Ortiz Primary Care Unavailable JAGDEEP JIN Attending Unavailable Allergies Allergy Classification Reported Allergen(s) Allergy Type Date of Onset Reaction(s) Facility (1 source) HOMEOPATHIC PRODUCTS; Translations: [HOMEOPATHIC PRODUCTS] Propensity to adverse reactions to drug (disorder) 10200 5 [facility] Repository Medications Current Medications Medication Drug Class(es) Dates Sig (Normalized) Sig (Original) amoxicillin 875 mg / clavulanate 125 mg oral tablet (8 sources) Penicillin-class Antibacterial Start: 11-07-2021 take 1 tablet by mouth twice daily Amoxicillin-Pot Clavulanate Active 1 TABLET PO TWICE A DAY November 07, 2021 12:00am Start: 06-01-2008 End: 11-10-2008 take 1 tablet by mouth twice daily AUGMENTIN, 875-125MG (Oral Tablet) 1 (one) Tablet Twice daily for 0 days Quantity: 20 {Tablet} Refills: 0 Ordered: 01-Jun-2008 ANTONELLA Ayers LPN Start : 01-Jun-2008 End : 10-Nov-2008 Inactive Completed/Discontinued Medications Medication Drug Class(es) Dates Sig (Normalized) Sig (Original) acetaminophen 650 mg / propoxyphene napsylate 100 mg oral tablet (2 sources) Opioid Agonist Start: 11-26-2006 take 1 tablet by mouth four times daily DARVOCET-N 100, 100-650MG (Oral Tablet) 1 Tablet qid for 0 days Quantity: 90 {Tablet} Refills: 0 Ordered: 10-Feb-2010 ANTONELLA Ayers LPN Start : 26-Nov-2006 Inactive amLODIPine 5 mg oral tablet (2 sources) Dihydropyridine Calcium Channel Simon End: 11-10-2008 take 1 tablet by mouth once daily NORVASC, 5MG (Oral Tablet) 1 qd for 0 days Refills: 0 Ordered: 10-Nov-2008 ANTONELLA Ayers LPN End : 10-Nov-2008 Inactive azelastine hydrochloride 0.137 mg/actuat metered dose nasal spray (2 sources) Histamine-1 Receptor Antagonist Start: 11-10-2008 take 1 spray(s) nasal route once daily ASTELIN, 137MCG/SPRAY (Nasal Solution) Solution 1 spray each nostril daily for 0 days Quantity: 1 {Solution} Refills: 0 Ordered: 10-Feb-2010 ANTONELLA Ayers LPN Start : 10-Nov-2008 Inactive azithromycin 250 mg oral tablet (2 sources) Macrolide Antimicrobial Start: 11-10-2008 End: 12-01-2008 ZITHROMAX Z-AASHISH, 250MG (Oral Tablet) 1 Tablet uad for 0 days Refills: 0 Ordered: 10-Nov-2008 ANTONELLA Ayers LPN Start : 10-Nov-2008 End : 01-Dec-2008 Inactive 24 hr buPROPion hydrochloride 150 mg extended release oral tablet (4 sources) Aminoketone Start: 07-14-2015 WELLBUTRIN XL, 150MG (Oral Tablet Extended Release 24 Hour) 1 tab Tablet ER 24HR daily for 0 days Quantity: 30 {Tablet} Refills: 6 Ordered: 14-Jul-2015 James JULIEN, Brisa Ramirez MD, Brisa Guerra Start : 14-Jul-2015 Active Start: 07-17-2014 End: 10-14-2014 take 1 tablet by mouth once daily WELLBUTRIN XL, 300MG (Oral Tablet Extended Release 24 Hour) 1 (one) Tablet ER 24HR daily for 0 days Quantity: 30 {Tablet} Refills: 6 Ordered: 14-Oct-2014 Justina Gilbert CMA Start : 17-Jul-2014 End : 14-Oct-2014 Inactive cetirizine hydrochloride 10 mg oral tablet (2 sources) Histamine-1 Receptor Antagonist Start: 03-06-2007 End: 06-01-2008 take 1 tablet by mouth once daily ZYRTEC, 10MG (Oral Tablet) 1 Tablet QD for 0 days Quantity: 30 {Tablet} Refills: 2 Ordered: 06-Mar-2007 Rukhsana Martinez Start : 06-Mar-2007 End : 01-Jun-2008 Discontinued ciprofloxacin 500 mg oral tablet (2 sources) Quinolone Antimicrobial Start: 05-10-2007 End: 06-01-2008 take 1 tablet by mouth twice daily CIPRO, 500MG (Oral Tablet) Tablet BID for 0 days Quantity: 14 {Tablet} Refills: 0 Ordered: 10-May-2007 Rukhsana Martinez Start : 10-May-2007 End : 01-Jun-2008 Discontinued citalopram 20 mg oral tablet (2 sources) Serotonin Reuptake Inhibitor Start: 11-01-2012 End: 05-20-2013 take 1 tablet by mouth once daily CELEXA, 20MG (Oral Tablet) 1 Tablet qd for 0 days Quantity: 30 {Tablet} Refills: 2 Ordered: 20-May-2013 Yuridia Wright RN Start : 01-Nov-2012 End : 20-May-2013 Inactive codeine phosphate 2 mg/ml / guaiFENesin 20 mg/ml oral solution (2 sources) Opioid Agonist Start: 11-10-2008 End: 12-01-2008 GUAIATUSSIN AC, 100-10MG/5ML (Oral Syrup) 1 for 0 days Refills: 0 Ordered: 10-Nov-2008 ANTONELLA Ayers LPN Start : 10-Nov-2008 End : 01-Dec-2008 Inactive doxycycline anhydrous 40 mg delayed release oral capsule (2 sources) Tetracycline-class Drug take 1 capsule by mouth once daily ORACEA, 40MG (Oral Capsule Delayed Release) 1 qd for 0 days Refills: 0 Ordered: 10-Feb-2010 ANTONELLA Ayers LPN Inactive ergocalciferol 99591 unt oral capsule (2 sources) Provitamin D2 Compound Start: 10-20-2014 End: 06-18-2015 take 1 capsule by mouth two times weekly ERGOCALCIFEROL, [id number] (Oral Capsule) 1 Capsule 2 times a week for 0 days Quantity: 8 {Capsule} Refills: 3 Ordered: 18-Jun-2015 ANTONELLA Ayers LPN Start : 20-Oct-2014 End : 18-Jun-2015 Inactive famciclovir 500 mg oral tablet (2 sources) Herpes Simplex Virus Nucleoside Analog DNA Polymerase Inhibitor Start: 07-14-2015 take 1 tablet by mouth twice daily as needed FAMCICLOVIR, 500MG (Oral Tablet) 1 (one) Tablet bid prn for 0 days Quantity: 30 {Tablet} Refills: 3 Ordered: 14-Jul-2015 Brisa Ramirez MD, MD, Dana M Start : 14-Jul-2015 Active fluticasone propionate 0.05 mg/actuat metered dose nasal spray (2 sources) Corticosteroid Start: 06-18-2015 take 1 spray(s) nasal route twice daily FLUTICASONE PROPIONATE, 50MCG/ACT (Nasal Suspension) 1 spray Suspension each nostril bid for 0 days Quantity: 1 {Canister} Refills: 3 Ordered: 18-Jun-2015 Brisa Ramirez MD, MD, Dana M Start : 18-Jun-2015 Active folic acid 1 mg oral tablet (2 sources) End: 02-10-2010 take 1 tablet by mouth once daily FOLIC ACID, 1MG (Oral Tablet) 1 qd for 0 days Refills: 0 Ordered: 10-Feb-2010 Brisa Ramirez MD, MD, Dana M End : 10-Feb-2010 Discontinued hydroxychloroquine sulfate 200 mg oral tablet (2 sources) Antimalarial, Antirheumatic Agent End: 02-10-2010 take 1 tablet by mouth twice daily PLAQUENIL, 200MG (Oral Tablet) 1 bid for 0 days Refills: 0 Ordered: 10-Feb-2010 Brisa Ramirez MD, MD, Dana M End : 10-Feb-2010 Discontinued ibandronic acid 150 mg oral tablet (2 sources) Bisphosphonate take 1 tablet by mouth every month BONIVA, 150MG (Oral Tablet) 1 per month for 0 days Refills: 0 Ordered: 10-Feb-2010 ANTONELLA Ayers LPN Inactive ibuprofen 200 mg oral tablet (2 sources) Nonsteroidal Anti-inflammatory Drug take 4-5 tablets by mouth three times daily IBUPROFEN, 200MG (Oral Tablet) 4-5 tabs tid (200 MG) Active ketoconazole 20 mg/ml topical cream (2 sources) Azole Antifungal Start: 06-18-2015 KETOCONAZOLE, 2% (External Cream) 1 (one) Cream Cream bid for 0 days Quantity: 1 {Tube} Refills: 0 Ordered: 18-Jun-2015 ANTONELLA Ayers LPN Start : 18-Jun-2015 Active levocetirizine dihydrochloride 5 mg oral tablet (2 sources) Histamine-1 Receptor Antagonist Start: 12-01-2008 take 1 tablet by mouth once daily XYZAL, 5MG (Oral Tablet) Tablet QD for 0 days Quantity: 30 {Tablet} Refills: 6 Ordered: 10-Feb-2010 ANTONELLA Ayers LPN Start : 01-Dec-2008 Inactive Comments: claritin zyretic not work Comment on above: claritin zyretic no t work LORazepam 0.5 mg oral tablet (2 sources) Benzodiazepine Start: 07-14-2015 take 1 tablet by mouth once daily as needed ATIVAN, 0.5MG (Oral Tablet) 1 Tablet qd prn for 0 days Quantity: 60 {Tablet} Refills: 1 Ordered: 14-Jul-2015 Brisa Ramirez MD, MD, Dana M Start : 14-Jul-2015 Active Comments: sixty Comment on above: sixty meclizine hydrochloride 12.5 mg oral tablet (2 sources) Antiemetic Start: 11-12-2006 End: 11-10-2008 take 1-2 tablets by mouth four times daily as needed MECLIZINE HCL, 12.5MG (Oral Tablet) 1-2 Tablet QID/PRN for 0 days Quantity: 30 {Tablet} Refills: 0 Ordered: 12-Nov-2006 ANTONELLA Ayers LPN Start : 12-Nov-2006 End : 10-Nov-2008 Inactive methotrexate 2.5 mg oral tablet (2 sources) Folate Analog Metabolic Inhibitor End: 02-10-2010 take 8 tablets by mouth every week METHOTREXATE SODIUM, 2.5MG (Oral Tablet) 8 tablets q weekly for 0 days Refills: 0 Ordered: 10-Feb-2010 Brisa Ramirez MD, MD, Dana M End : 10-Feb-2010 Discontinued mometasone furoate 0.05 mg/actuat metered dose nasal spray (2 sources) Corticosteroid Start: 06-23-2013 End: 06-23-2013 take 1 spray(s) nasal route once daily NASONEX, 50MCG/ACT (Nasal Suspension) 1 (one) Suspension spray each nostril daily for 0 days Quantity: 1 {Suspension} Refills: 6 Ordered: 23-Jun-2013 James JULIEN, Brisa Ramirez MD, Brisa Guerra Start : 23-Jun-2013 End : 23-Jun-2013 Inactive omeprazole 20 mg delayed release oral capsule (2 sources) Proton Pump Inhibitor Start: 04-10-2014 End: 06-18-2015 take 1 capsule by mouth once daily OMEPRAZOLE, 20MG (Oral Capsule Delayed Release) 1 (one) Capsule DR Capsule DR qd for 0 days Quantity: 30 {Capsule} Refills: 3 Ordered: 18-Jun-2015 ANTONELLA Ayers LPN Start : 10-Apr-2014 End : 18-Jun-2015 Inactive pentoxifylline 400 mg extended release oral tablet (2 sources) Blood Viscosity Pool Finisher End: 06-01-2008 take 1 tablet by mouth three times daily TRENTAL, 400MG (Oral Tablet Extended Release) 1 tID for 0 days Refills: 0 Ordered: 01-Jun-2008 Rukhsana Martinez End : 01-Jun-2008 Inactive predniSONE 10 mg oral tablet (4 sources) Start: 04-10-2014 End: 06-12-2014 PREDNISONE, 10MG (Oral Tablet) 3 (three) Tablet for 1 week then 2 pills a week then 1 pill for a week then 1/2 pill for a week for 0 days Quantity: 49 {Tablet} Refills: 0 Ordered: 12-Jun-2014 ANTONELLA Ayers LPN Start : 10-Apr-2014 End : 12-Jun-2014 Inactive Comments: take pred with food in am Start: 05-20-2013 End: 05-28-2013 take 2 tablets by mouth once daily, then take 1 tablet by mouth once daily, then take 0.5 tablet by mouth once daily PREDNISONE, 20MG (Oral Tablet) 1 Tablet uad for 8 days Refills: 0 Ordered: 20-May-2013 Brisa Ramirez MD, MD, Brisa Guerra Start : 20-May-2013 End : 28-May-2013 Inactive Comments: 2 a d for 5 d, 1 a d for 5d, 1/2 a d for 5 d Comment on above: 2 a d for 5 d, 1 a d for 5d, 1/2 a d for 5 d take pred with food in am Triamcinolone (2 sources) Corticosteroid Start: 11-12-2006 End: 11-10-2008 NASACORT AQ, 55MCG/ACT (Nasal Aerosol Solution) 2 (two) Conley(s) each nare daily for 0 days Refills: 0 Ordered: 12-Nov-2006 ANTONELLA Ayers LPN Start : 12-Nov-2006 End : 10-Nov-2008 Inactive Start: 11-12-2006 End: 11-10-2008 NASACORT AQ, 55MCG/ACT (Nasa l Aerosol Solution) 2 (two) Conley(s) each nare daily for 0 days Refills: 0 Ordered: 12-Nov-2006 ANTONELLA Ayers Start : 12-Nov-2006 End : 10-Nov-2008 Inactive NEGATED: Highlighted row has not occurred!drug or medication (2 sources) No Known Histori jordin Medications Problems Active Problems Problem Classification Problem Date Documented Date Episodic/Chronic Administrative/social admission (2 sources) Medical examinations/reports status; Translations: [Well woman exam with routine gynecological exam] 07-14-2015 Episodic Comment on above: colonscopy 07-24 had mammo. leslie no bso. had shingles vaccine had pneumonia then will get after 66 yo. had flu shot Anxiety disorders (8 sources) Anxiety; Translations: [Anxiety] 10-15-2015 Chronic Comment on above: wellbutrin is workin g even on 1 a day now on 2 a day and some insomnia. anxiety is better. only need the ativan 3 tiems a week. hope as get more comfortabel with job then willuse less. change from [place] after 30 years to [place] Cardiac dysrhythmias (6 sources) Palpitations; Translations: [Palpitation] 10-15-2015 Episodic Comment on above: cut out caffienestil l have them not as bad Chronic obstructive pulmonary disease and bronchiectasis (2 sources) Chronic obstructive pulmonary disease and bronchiectasis Conditions associated with dizziness or vertigo (8 sources) Benign paroxysmal positional vertigo; Translations: [Vertigo] Resolved: 01-27-2009 06-06-2013 Episodic Comment on above: most likely cause- d on't see evidence of ETD but gave nasal spray to cover all bases. Gave educational hand out on BPPV and exercise sheet also. If persists pt to return. No stroke symptoms. told to call if dipl opia, bad headache, syncope, unilateral weakness or paresthesia, gait or speech change. try exercises and bonine not sound central Gastritis and duodenitis (4 sources) Acute gastritis; Translations: [Gastritis] Resolved: 06-12-2014 06-30-2015 Episodic Immunizations and screening for infectious disease (2 sources) Need for prophylactic vaccination and inoculation against influenza Episodic Malaise and fatigue (6 sources) Fatigue; Translations: [Fatigue] 07-14-2015 Episodic Comment on above: some better wellutri n Mood disorders (14 sources) Depression; Translations: [Depressive disorder] 07-14-2015 Chronic Comment on above: doing much better. w ellbutyrin hepling but then stop. right now her depression really is the way fedel about self. she want to try weight loss first not want SSRI because weight gain. stress with changes at work Nutritional deficiencies (4 sources) Vitamin D deficiency; Translations: [Vitamin D deficiency] 07-14-2015 Chronic Open wounds of extremities (6 sources) Dog bite of hand; Translations: [Open bite of left hand, initial encounter] 11-07-2021 Episodic Osteoporosis (1 source) Age-related osteoporosis without current pathological fracture; Translations: [Age-related osteoporosis without current pathological fracture] Onset: 01-29-2023 Chronic Other circulatory disease (2 sources) Disorder of carotid artery; Translations: [Carotid artery disease] 07-14-2015 Chronic Comment on above: seen elayne, reviewed echo tried to call-gone will call tomorrow, think raynaunds try nitro cream, hold norvasc Other circulatory disease (6 sources) Unspecified disorders of arteries and arterioles Chronic Other inflammatory condition of skin (1 source) Subacute cutaneous lupus erythematosus; Translations: [Subacute cutaneous lupus erythematosus] Onset: 03-04-2023 Chronic Other lower respiratory disease (2 sources) Dyspnea Episodic Other nutritional; endocrine; and metabolic disorders (10 sources) Obesity; Translations: [Obesity] 10-15-2015 Chronic Comment on above: lost weight and doin g good but not able to get more off. with RA need to get to 25. Other nutritional; endocrine; and metabolic disorders (2 sources) Weight gain; Translations: [Weight Gain (Renamed from Gain of weight)] 07-14-2015 Episodic Comment on above: better now on the we llbutrin exercising more motivated eating better. consider adding naltrexone Other upper respiratory disease (10 sources) Allergic rhinitis; Translations: [Allergic rhinitis] Resolved: 06-12-2014 06-12-2014 Chronic Comment on above: zyretic not work, cl aritin not work. astelin not work. will try stronger antihistamine and steroid nasal spray--not work then to ENT Other upper respiratory infections (4 sources) Acute pharyngitis; Translations: [Pharyngitis, acute] Resolved: 01-27-2009 05-18-2015 Episodic Rheumatoid arthritis and related disease (8 sources) Rheumatoid arthritis; Translations: [Rheumatoid arthritis] 07-14-2015 Chronic Comment on above: labs negative for RA but KAMI positive and ;she had arthritis and raynaunds to Dr. holly Superficial injury; contusion (7 sources) Contusion of rib; Translations: [Contusion of left front wall of thorax, initial encounter] Onset: 08-08-2022 07-31-2022 Episodic Thyroid disorders (1 source) Nontoxic goiter, unspecified; Translations: [Nontoxic goiter, unspecified] Onset: 01-15-2023 Chronic Unclassified (20 sources) Viral infection (4 sources) Genital herpes simplex; Translations: [Genital herpes] 07-14-2015 Chronic Past or Other Problems Problem Classification Problem Date Documented Date Episodic/Chronic Allergic reactions (2 sources) Contact dermatitis due to plants, except food; Translations: [CONTACT DERMATITIS AND OTHER ECZEMA DUE TO PLANTS (EXCEPT FOOD)] Resolved: 06-06-2013 06-06-2013 Episodic Chronic obstructive pulmonary disease and bronchiectasis (2 sources) Bronchitis; Translations: [Bronchitis] Resolved: 01-27-2009 05-18-2015 Episodic Genitourinary symptoms and ill-defined conditions (2 sources) Dysuria; Translations: [Dysuria] Resolved: 01-27-2009 06-29-2015 Episodic Other connective tissue disease (2 sources) Pain in toe; Translations: [Pain of great toe (Renamed from Great toe pain)] Resolved: 06-06-2013 06-06-2013 Episodic Other lower respiratory disease (2 sources) Dyspnea on exertion; Translations: [SOB (shortness of breath) on exertion] Resolved: 01-27-2009 06-25-2015 Episodic Comment on above: new problem not more in 6 months. with exertion. ? weight ? deconditioning ? cardiac. not anemic not sound like asthma. if heart workup negative then start conditioning Other screening for suspected conditions (not mental disorders or infectious disease) (2 sources) Breast neoplasm screening status; Translations: [Breast screening] Resolved: 07-14-2015 07-14-2015 Episodic Other skin disorders (2 sources) Eruption; Translations: [SYMPTOMS INVOLVING SKIN AND OTHER INTEGUMENTARY TISSUE, RASH AND OTHER NONSPECIFIC SKIN ERUPTION] Resolved: 07-14-2015 07-14-2015 Episodic Comment on above: around nose think se b dermatitis Residual codes; unclassified (2 sources) Needs influenza immunization; Translations: [Need for prophylactic vaccination and inoculation against influenza] Resolved: 06-12-2014 05-18-2015 Episodic Residual codes; unclassified (2 sources) Other specified health status; Translations: [No known drug allergy] Resolved: 06-18-2015 07-20-2015 Episodic Unclassified (2 sources) Breast screening Unclassified (6 sources) SYMPTOMS INVOLVING SKIN AND OTHER INTEGUMENTARY TISSUE, RASH AND OTHER NONSPECIFIC SKIN ERUPTION (782.1) Unclassified (6 sources) Well Woman Exam , (V73.21) (Renamed from Well Woman Exam , Medicare (V76.2, V72.31)) Unclassified (6 sources) Weight Gain (Renamed from Gain of weight) Unclassified (2 sources) CONTACT DERMATITIS AND OTHER ECZEMA DUE TO PLANTS (EXCEPT FOOD) (692.6) Unclassified (2 sources) Allergy to No Known Drug Allergies (Renamed from No Known Drug Allergies) Unclassified (2 sources) Patient encounter status; Translations: [Encounter for screening for malignant neoplasm of cervix] Resolved: 07-14-2015 07-14-2015 Comment on above: 07-24 colonscopy. TA H wiphyllis no bso. because precancer so did cuff scrapig. Unclassified (2 sources) Unspecified Diagnosis Unclassified (4 sources) Screening status; Translations: [Screening for malignant neoplasm of bladder] Resolved: 07-14-2015 07-14-2015 Unclassified (2 sources) SYMPTOMS INVOLVING URINARY SYSTEM; DYSURIA (788.1) Unclassified (2 sources) Pain of great toe (729.5) Unclassified (2 sources) Well Woman Exam , Medicare (V76.2) (Renamed from Well Woman Exam , Medicare (V76.2, V72.31)) Unclassified (4 sources) Current non-smoker ; Translations: [Current nonsmoker (Renamed from Current non-smoker)] 07-14-2015 Unclassified (2 sources) Well woman exam with routine gynecological exam Results Test Name Value Interpretation Reference Range Facility CNOVon 08-14-2023 CNOV Office Visit (OBGYWM ) JANET MCCALL ([id number]) 1950 F Date Time Provider Department 08/14/23 8:20 AM JAGDEEP JIN OBGYWM During your visit today, we recorded the following information about you: Blood pressure Weight Height 126/80 68.5 kg 1.56 m Jagdeep Jin MD 08/14/2023 8:45 AM Signed Janet Pat Mccall is a 72 year old female who presents for problem visit with c/o vaginal dryness over the course of the pastmonth subsequent to resuming intercourse ~ 1-2 times week. Vagisil and moisturizer w/o improvement.. partner w/o issues HPI: as above OB History T2 L2 SAB0 IAB0 Ectopic1 Multiple0 Live Births0 Urgent Care Physician History LMP: Hysterectomy Age at Menarche: Age at First : Age at Menopause: Urgent Care Physician History Comments: Sexual Activity: Yes; Male; pt with a hysterectomy Contraception: No contraception data on record PAST MEDICAL HISTORY Diagnosis Date Adjustment disorder with depressed mood Benign neoplasm of colon Diarrhea Internal hemorrhoids without mention of complication Internal hemorrhoids without mention of complication Irritable bowel syndrome Migraine with aura Osteoarthrosis, unspecified whether generalized or localized, other specified sites Osteoporosis PMH - PAST MEDICAL HISTORY OF raynods disease PMH - PAST MEDICAL HISTORY OF carpal tunnel bilaterally PMH - PAST MEDICAL HISTORY OF carcinoma insitu of the cervix Rheumatoid arthritis(714.0) Rosacea Unspecified constipation Unspecified hemorrhoids without mention of complication PAST SURGICAL HISTORY Procedure Laterality Date APPENDECTOMY COLONOSCOP W/ OR W/O BRSH SPEC 01/24/02 Colonoscopy COLONOSCOPY W/BX 07/21/08 repeat 5 yrs. EXCISION OF LINGUAL TONSIL RX ECTOP PREG,UTER WALL W LESLIE VAGINAL HYSTERECTOMY 1989 Hysterectomy, vaginal Still has ovaries FAMILY HISTORY Problem Relation Age of Onset Cancer Mother lung, passed in mid 60's Breast Cancer Mother Alcohol/Drug Father alcohol other (epilepsy) Brother other (spot on lung) Sister other (gestational diabetes) Daughter None Daughter Social History Tobacco Use Smoking status: Never Smokeless tobacco: Never Substance Use Topics Alcohol use: Yes Comment: socially Drug use: No Current Outpatient Medications Medication Sig BUPROPION HCL (WELLBUTRIN ORAL) Take by mouth. ibuprofen (ADVIL) 200 mg ORAL tablet Take 1-2 tablets by mouth every 2 hours as needed. FOR PAIN. No current facility-administered medications for this visit. Allergies As of Date: 08/14/2023 Allergen Noted Reaction HAYFEVER [HOMEOPATHIC PRODUCTS] 05/25/2005 Fully Assessed 09/12/2016 REVIEW OF SYSTEMS Abdomen: No bloating, early satiety, indigestion, or increased flatulence. No abdominal pain, nausea, vomiting, diarrhea, or constipation. Bladder: No dysuria, gross hematuria, urinary frequency, urinary urgency, or incontinence. Breast: No breast lumps, nipple d/c, overlying skin changes, redness or skin retraction. Expanded ROS: N/A Allergies and current medication updated:Yes EXAM: There were no vitals taken for this visit. GENERAL: pleasant, female in no apparent distress HEENT: JANNY: DERMATOLOGY: BREAST: CHEST: ABDOMEN: soft, non-tender, and no masses PELVIC: external genitalia normal, normal Bartholin's glands, urethra, [place]'s glands, no vulvar lesions, good vaginal support, physiologic discharge present, normal appearing perineal body and perianal region, cervix surgically absent BIMANUAL: no adnexal masses, non-tender, and uterus surgically absent EXTREMITIES: normal ASSESSMENT AND PLAN: Atrophic vagina;l mucosa and intercourse related injury. Astroglide, pink FTFC > 30 min discussion re vaginal health Single course of Premarin vagina cream Jagdeep Jin MD Allergies As of Date: 08/14/2023 Noted Allergy Reaction HAYFEVER (HOMEOPATHIC PRODUCTS) 05/25/2005 Date Reviewed: 09/12/2016 Reviewed by: Wanda Connell Ma - Fully Assessed Reason for Visit: Vaginal Problem [117] Primary Visit Diagnosis:Vaginal atrophy [N95.2] Order(s):conjugated estrogens (PREMARIN) vaginal creamUse 0.5 g vaginally two times a week.Disp: 1 gRfl: 1 Prescriptions as of 08/14/2023 - busPIRone (BUSPAR) 5 mg tablet - amLODIPine (NORVASC) 5 mg tablet - alendronate (FOSAMAX) 70 mg tablet - escitalopram oxalate (LEXAPRO) 10 mg tablet - LORazepam (ATIVAN) 0.5 mg Take 0.5 mg by mouth as needed. - meloxicam (MOBIC) 15 mg tablet - calcium carbonate (CALCIUM 300 ORAL) Take by mouth. - COLLAGEN MISC - multivitamin tablet Take 1 tablet by mouth once daily. - conjugated estrogens (PREMARIN) vaginal cream Use 0.5 g vaginally two times a week. - BUPROPION HCL (WELLBUTRIN ORAL) Take by mouth. - ibuprofen (ADVIL) 200 mg ORAL tablet Take 1-2 tablets by mouth every 2 hours as needed. FOR PAIN. Probl (more content not included)... Normal [facility] CNPNon 08-14-2023 CNPN Telephone (OBGYWM) JANET MCCALL ([id number]) 1950 F Date Time Provider Department 08/14/23 JAGDEEP JIN OBALLIE During your visit today, we recorded the following information about you: Nurys Charles RN 08/14/2023 10:28 AM Signed Patient called because she needs Premarin cream PA. It will not be any cheaper with Good RX patient said. SONJA Tuttle Kimberly, LPN 08/16/2023 12:14 PM Signed Please review pended order below. This medication does not require a PA under the pt's insurance. Please advise in AT absence. NIGHAT Davis Renee, APRN.CNP 08/16/2023 12:43 PM Signed Does she want it sent to [facility] it will only be $40 there. VERONICA Muhammad Trisha, RN 08/16/2023 2:02 PM Signed Patient notified. She still wants to check regalado with [facility] first. Please file rx. SONJA Gooden Renee, APRN.CNP 08/17/2023 7:11 AM Signed RX sent. Melly Palacios APRN.CNP Allergies As of Date: 08/14/2023 Noted Allergy Reaction HAYFEVER (HOMEOPATHIC PRODUCTS) 05/25/2005 Date Reviewed: 09/12/2016 Reviewed by: Wanda Connell Ma - Fully Assessed Reason for Visit: Insurance Authorization [[id number]] Order(s):estradiol (ESTRACE) 0.01 % (0.1 mg/gram) vaginal creamUse 0.5 g vaginally two times a week.Disp: 1 gRfl: 1 Prescriptions as of 08/17/2023 - estradiol (ESTRACE) 0.01 % (0.1 mg/gram) vaginal cream Use 0.5 g vaginally two times a week. - busPIRone (BUSPAR) 5 mg tablet - amLODIPine (NORVASC) 5 mg tablet - alendronate (FOSAMAX) 70 mg tablet - escitalopram oxalate (LEXAPRO) 10 mg tablet - LORazepam (ATIVAN) 0.5 mg Take 0.5 mg by mouth as needed. - meloxicam (MOBIC) 15 mg tablet - calcium carbonate (CALCIUM 300 ORAL) Take by mouth. - COLLAGEN MISC - multivitamin tablet Take 1 tablet by mouth once daily. - conjugated estrogens (PREMARIN) vaginal cream Use 0.5 g vaginally two times a week. - BUPROPION HCL (WELLBUTRIN ORAL) Take by mouth. - ibuprofen (ADVIL) 200 mg ORAL tablet Take 1-2 tablets by mouth every 2 hours as needed. FOR PAIN. 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 Encounter Status:Closed by NURYS CHARLES on 08/17/23 [facility] Absolute lymphocyte countOrd ered By: Linda Sanders on 05-30-2023 Lymphocytes Auto (Unsp spec) [#/Vol] 1.65 10*3/uL 0.83-4.51 [facility] Basophil percentageOrdered B y: Linda Sanders on 05-30-2023 Basophils/100 WBC (Bld) 1.2 % 0-1 [facility] Bilirubin [Mass/Vol] 0.50 mg/dL 0.20-1.00 [facility] Comment on above: For patients on eltr ombopag therapy, use of Dim[place] TBIL is not recommended. Chloride [Moles/Vol] 107 mmol/L 98-107 [facility] Eosinophils/100 WBC (Bld) 2.8 % 0-5 [facility] Glucose [Mass/Vol] 102 mg/dL 74-106 [facility] Comment on above: Fasting Glucose resu lt from 100 to 125 mg/dL suggests IMPAIRED HOMEOSTASIS per A.D.A. criteria. Neutrophils (Bld) [#/Vol] 2.0 10*3/uL 2.0-7.7 [facility] Neutrophils/100 WBC (Bld) 46.6 % 47-70 [facility] Potassium [Moles/Vol] 4.0 mmol/L 3.5-5.1 [facility] Protein [Mass/Vol] 7.1 g/dL 6.4-8.2 [facility] Sodium [Moles/Vol] 141 mmol/L 136-145 [facility] WBC (Bld) [#/Vol] 4.2 10*3/uL 4.4-11.0 [facility] Blood erythrocytes count (nu mber/volume)Ordered By: Linda Sanders on 05-30-2023 RBC (Bld) [#/Vol] 4.58 10*6/uL 4.2-5.4 [facility] Blood hemoglobin measurement (mass/volume)Ordered By: [facility] Marilyn on 05-30-2023 Hemoglobin (Bld) [Mass/Vol] 14.3 g/dL 12.0-15.0 [facility] Blood lymphocytes/100 leukoc ytesOrdered By: [facility] Marilyn on 05-30-2023 Lymphocytes/100 WBC (Bld) 39.0 % 19-41 [facility] Blood monocytes/100 leukocyt esOrdered By: [facility] on 05-30-2023 Monocytes/100 WBC (Bld) 10.4 % 0-10 [facility] Blood platelet mean volumeOr dered By: Linda Marilyn on 05-30-2023 Platelet mean volume (Bld) [Entitic vol] 9.2 fL 6.2-12.0 [facility] Determination of erythrocyte mean corpuscular volume (MCV)Ordered By: Linda Marilyn on 05-30-2023 MCV (RBC) [Entitic vol] 94.5 fL 81-99 [facility] Hematocrit Auto (Bld) [Volum e fraction]Ordered By: [facility] Marilyn on 05-30-2023 Hematocrit (Bld) [Volume fraction] 43.3 % 37-47 [facility] Laboratory - Chemistry and C hemistry - challengeOrdered By: Lindajunior Sanders on 05-30-2023 ALP [Catalytic activity/Vol] 71 U/L 45-117 [facility] ALT [Catalytic activity/Vol] 25 U/L 13-56 [facility] CO2 [Moles/Vol] 30.0 mmol/L 21.0-32.0 [facility] Cobalamin (Vitamin B12) [Mass/Vol] 389 pg/mL 211-911 [facility] Globulin (S) [Mass/Vol] 3.4 g/dL 2.2-4.2 [facility] Urea nitrogen/Creatinine [Mass ratio] 25.8 mg/mg 10-20 [facility] - Hematology and Cell countsOrdered By: Linda Sanders on 05-30-2023 Erythrocyte distribution width (RBC) [Entitic vol] 46.0 fL 35.1-43.9 [facility] Erythrocyte distribution width (RBC) [Ratio] 13.2 % 11.6-14.6 [facility] Immature granulocytes/100 WBC (Bld) 0.000 % 0.0-0.9 [facility] Comment on above: IG% - Immature Granu locytes (promyelocytes, myelocytes and metamyelocytes) > 1% indicates that a LEFT SHIFT is Present. MCH (RBC) [Entitic mass] 31.2 pg 27.0-32.0 [facility] Nucleated RBC/100 WBC (Bld) [Ratio] 0 % 0-5 [facility] MCHC Auto (RBC) [Mass/Vol]Or dered By: Linda Sanders on 05-30-2023 MCHC (RBC) [Mass/Vol] 33.0 g/dL 32-36 [facility] No Panel InformationOrdered By: Linda Sanders on 05-30-2023 Estimated GFR (MDRD) Amer 76 mL/min >60 [facility] Comment on above: GFR Calc Estimated GFR (MDRD) Non-Af Amer 63 mL/min >60 [facility] Comment on above: Non- GFR Calc Thyroid Stimulating Hormone (TSH) 0.83 uIU/mL 0.358-3.74 [facility] Platelets bldOrdered By: Gabriel Sanders on 05-30-2023 Platelets (Bld) [#/Vol] 214 10*3/uL 150-450 [facility] Serum or plasma albumin reji urement (mass/volume)Ordered By: Linda Statmisha on 05-30-2023 Albumin [Mass/Vol] 3.7 g/dL 3.2-5.0 [facility] Serum or plasma albumin/glob ulin mass ratioOrdered By: [facility] on 05-30-2023 Albumin/Globulin [Mass ratio] 1.1 {ratio} 0.9-2.4 [facility] Serum or plasma calcium reji urement (mass/volume)Ordered By: [facility] 05-30-2023 Calcium [Mass/Vol] 9.5 mg/dL 8.5-10.1 [facility] Serum or plasma creatinine m easurement (mass/volume)Ordered By: [facility] on 05-30-2023 Creatinine [Mass/Vol] 0.93 mg/dL 0.55-1.02 [facility] Comment on above: The validity of the calculated GFR & GFRAA in patients over 70 years has not been determined. Clinical correlation is essential. Serum or plasma urea nitroge n measurement (mass/volume)Ordered By: [facility] on 05-30-2023 Urea nitrogen [Mass/Vol] 24 mg/dL 02-27 [facility] Thin prep Papanicolaou smear with manual screeningOrdered By: [facility] on 05-30-2023 Thin prep Papanicolaou smear with manual screening 15 U/L 15-37 [facility] Thin prep Papanicolaou smear with manual screening 4 5-15 [facility] Anti-dsDNA Abon 03-12-2023 ANTI-DNA (DS)AB Normal [facility] Comment on above: Result Comment: TEST RESULTS LIMITS Anti-DNA (DS) Ab Qn <1 IU/mL 0-9 Negative <5 Equivocal 5 - 9 Positive >9 TESTING PERFORMED AT [facility]. ORIGINAL REPORT ON FILE IN LAB CONTAINS ADDITIONAL TEST SITE INFORMATION. Performed By: #### L 3100.7950, L100.0100, L400.2011, L500.4050, L3100.5500 #### [facility] [address] [place], [address] ANTI-DNA (DS)AB Normal [facility] Comment on above: Result Comment: TEST RESULTS LIMITS Anti-DNA (DS) Ab Qn <1 IU/mL 0-9 Negative <5 Equivocal 5 - 9 Positive >9 TESTING PERFORMED AT [facility]. ORIGINAL REPORT ON FILE IN LAB CONTAINS ADDITIONAL TEST SITE INFORMATION. Performed By: #### L 500.4050, L3100.7950, L3100.9100, L400.0001, L3410.1110, L100.0100, L3100.5500 #### [facility] [address] [place], [address] Antiextractable [facility] STACKER DRIVER Ab Normal [facility] Comment on above: Result Comment: TEST RESULTS LIMITS STACKER DRIVER Antibodies 0.6 AI 0.0-0.9 [place] Antibodies 0.2 AI 0.0-0.9 TESTING PERFORMED AT [facility]. ORIGINAL REPORT ON FILE IN LAB CONTAINS ADDITIONAL TEST SITE INFORMATION. Performed By: #### L 3100.7950, L100.0100, L400.2010, L500.4050, L3100.5500 #### [facility] [place], [address] Antinuclear Antibody, IFAon 03-12-2023 KAMI, IFA Normal [facility] Comment on above: Result Comment: TEST RESULTS LIMITS KAMI by IFA Rfx Titer/Pattern Positive Abnormal Negative < 1:80 Borderline 1:80 Positive > 1:80 Speckled Pattern 1:80 ICAP nomenclature: AC-2,4,5,29 For more information about Hep-2 cell patterns use ANApatterns.org, the official website for the International Consensus on Antinuclear Antibody (KAMI) Patterns (ICAP). Note: A positive KAMI result may occur in healthy individuals or be associated with a variety of diseases. See interpretation below: Pattern Antigen Detected Suggested Disease Association Homogenous DNA(ds,ss,n), High titers - SLE (Smooth) Histone Speckled Sm,STACKER DRIVER,SCL-70, SLE,MCTD, Scleroderma, SS-A/SS-B Sjogrens Nucleolar SCL-70,PM-1/SCL High titers Scleroderma Polymyositis/scleroderma over- lap Centromere Centromere PSS w/Crest syndrome variable Nuclear Dot [id number],[id number] Primary Biliary Cirrhosis Nuclear GP210, Primary Biliary Cirrhosis Membrane aster A,B,C TESTING PERFORMED AT [facility]. ORIGINAL REPORT ON FILE IN LAB CONTAINS ADDITIONAL TEST SITE INFORMATION. Performed By: #### L 3100.7950, L100.0100, L400.2010, L500.4050, L3100.5500 #### [facility] [address] [place], [place], [id number] KAMI, IFA Normal [facility] Comment on above: Result Comment: TEST RESULTS LIMITS KAMI by IFA Rfx Titer/Pattern Positive Abnormal Negative < 1:80 Borderline 1:80 Positive > 1:80 Speckled Pattern 1:160 High ICAP nomenclature: AC-2,4,5,29 Note: For more information about Hep-2 cell patterns use ANApatterns.org, the official website for the International Consensus on Antinuclear Antibody (KAMI) Patterns (ICAP). Note: A positive KAMI result may occur in healthy individuals or be associated with a variety of diseases. See interpretation below: Pattern Antigen Detected Suggested Disease Association Homogenous DNA(ds,ss,n), High titers - SLE (Smooth) Histone Speckled Sm,STACKER DRIVER,SCL-70, SLE,MCTD, Scleroderma, SS-A/SS-B Sjogrens Nucleolar SCL-70,PM-1/SCL High titers Scleroderma Polymyositis/scleroderma over- lap Centromere Centromere PSS w/Crest syndrome variable Nuclear Dot Sp100,[id number] Primary Biliary Cirrhosis Nuclear GP210, Primary Biliary Cirrhosis Membrane aster A,B,C TESTING PERFORMED AT [facility]. ORIGINAL REPORT ON FILE IN LAB CONTAINS ADDITIONAL TEST SITE INFORMATION. Performed By: #### L 500.4050, L3100.7950, L3100.9100, L400.0001, L3410.1110, L100.0100, L3100.5500 #### [facility] [place], [address] Sjogren's Antibodies A/Bon 0 03-12-2023 ANTI-SS-A Normal [facility] Comment on above: Result Comment: TEST RESULTS LIMITS Sjogren's Ab, Anti-SS-A/-SS-B Sjogren's Anti-SS-A <0.2 AI 0.0-0.9 Sjogren's Anti-SS-B <0.2 AI 0.0-0.9 TESTING PERFORMED AT [facility]. ORIGINAL REPORT ON FILE IN LAB CONTAINS ADDITIONAL TEST SITE INFORMATION. Performed By: #### L 3100.7950, L100.0100, L400.2010, L500.4050, L3100.5500 #### [facility] [address] [place], [address] Absolute lymphocyte countOrd ered By: Radha Alcantar on 02-28-2023 Lymphocytes Auto (Unsp spec) [#/Vol] 1.21 10*3/uL 0.83-4.51 [facility] Basophil percentageOrdered B y: Radha Alcantar on 02-28-2023 Basophils/100 WBC (Bld) 1.3 % 0-1 [facility] Bilirubin [Mass/Vol] 0.50 mg/dL 0.20-1.00 [facility] Comment on above: For patients on eltr ombopag therapy, use of Dimension [place] TBIL is not recommended. Chloride [Moles/Vol] 105 mmol/L 98-107 [facility] Eosinophils/100 WBC (Bld) 2.3 % 0-5 [facility] Glucose [Mass/Vol] 91 mg/dL 74-106 [facility] Neutrophils (Bld) [#/Vol] 1.7 10*3/uL 2.0-7.7 [facility] Neutrophils/100 WBC (Bld) 45.4 % 47-70 [facility] Potassium [Moles/Vol] 3.9 mmol/L 3.5-5.1 [facility] Protein [Mass/Vol] 7.2 g/dL 6.4-8.2 [facility] Sodium [Moles/Vol] 140 mmol/L 136-145 [facility] WBC (Bld) [#/Vol] 3.8 10*3/uL 4.4-11.0 [facility] Bilirubin Test strip Ql (U)O rdered By: Radha Alcantar on 02-28-2023 Bilirubin Ql (U) Negative Negative [facility] Blood erythrocytes count (nu mber/volume)Ordered By: Radha Alcantar on 02-28-2023 RBC (Bld) [#/Vol] 4.74 10*6/uL 4.2-5.4 [facility] Blood hemoglobin measurement (mass/volume)Ordered By: Radha Alcantar on 02-28-2023 Hemoglobin (Bld) [Mass/Vol] 14.7 g/dL 12.0-15.0 [facility] Blood lymphocytes/100 leukoc ytesOrdered By: Radha Alcantar on 02-28-2023 Lymphocytes/100 WBC (Bld) 31.5 % 19-41 [facility] Blood monocytes/100 leukocyt esOrdered By: Radha Alcantar on 02-28-2023 Monocytes/100 WBC (Bld) 19.0 % 0-10 [facility] Blood platelet mean volumeOr dered By: Radha Alcantar on 02-28-2023 Platelet mean volume (Bld) [Entitic vol] 9.3 fL 6.2-12.0 [facility] CBC W/Diff, Automatedon 07- Absolute Lymph 1.21 X10 3/uL Normal 0.83-4.51 [facility] Comment on above: Performed By: #### L 3100.7950, L100.0100, L4.2010, L500.4050, L3100.5500 #### [facility] [address] [place], [address] Absolute Neut 1.7 X10 3/uL Low 2.0-7.7 [facility] Comment on above: Performed By: #### L 3100.7950, L100.0100, L400.2010, L500.4050, L3100.5500 #### [facility] [address] [place], [address] Basophils/100 WBC (Bld) 1.3 % High 0-1 [facility] Comment on above: Performed By: #### L 3100.7950, L100.0100, L4.2010, L500.4050, L3100.5500 #### [facility] [address] [place], [address] Eosinophils/100 WBC (Bld) 2.3 % Normal 0-5 [facility] Comment on above: Performed By: #### L 3100.7950, L100.0100, L400.2010, L500.4050, L3100.5500 #### [facility] [address] [place], [address] Erythrocyte distribution width (RBC) [Ratio] 13.5 % Normal 11.6-14.6 [facility] Comment on above: Performed By: #### L 3100.7950, L100.0100, L4, L500.4050, L3100.5500 #### [facility] [address] [place], [address] Hematocrit (Bld) [Volume fraction] 45.0 % Normal 37-47 [facility] Comment on above: Performed By: #### L 3100.7950, L100.0100, L4, L500.4050, L3100.5500 #### [facility] [address] [place], [address] Hemoglobin (Bld) [Mass/Vol] 14.7 g/dL Normal 12.0-15.0 [facility] Comment on above: Performed By: #### L 3100.7950, L100.0100, L4, L500.4050, L3100.5500 #### [facility] [address] [place], [address] IG% 0.500 Normal 0.0-0.9 [facility] Comment on above: Result Comment: IG% - Immature Granulocytes (promyelocytes, myelocytes and metamyelocytes) > 1% indicates that a LEFT SHIFT is Present. Performed By: #### L 3100.7950, L100.0100, L4.2010, L500.4050, L3100.5500 #### [facility] [address] [place], [address] Lymphocytes/100 WBC (Bld) 31.5 % Normal 19-41 [facility] Comment on above: Performed By: #### L 3100.7950, L100.0100, L400.2010, L500.4050, L3100.5500 #### [facility] [address] [place], [address] MCH (RBC) [Entitic mass] 31.0 pg Normal 27.0-32.0 [facility] Comment on above: Performed By: #### L 3100.7950, L100.0100, L400.2010, L500.4050, L3100.5500 #### [facility] [address] [place], [address] MCHC (RBC) [Mass/Vol] 32.7 g/dL Normal 32-36 [facility] Comment on above: Performed By: #### L 3100.7950, L100.0100, L400.2010, L500.4050, L3100.5500 #### [facility] [address] [place], [address] MCV (RBC) [Entitic vol] 94.9 fL Normal 81-99 [facility] Comment on above: Performed By: #### L 3100.7950, L100.0100, L400.2010, L500.4050, L3100.5500 #### [facility] [address] [place], [address] Monocytes/100 WBC (Bld) 19.0 % High 0-10 [facility] Comment on above: Performed By: #### L 3100.7950, L100.0100, L400.2010, L500.4050, L3100.5500 #### [facility] [address] [place], [address] Neutrophils/100 WBC (Bld) 45.4 % Low 47-70 [facility] Comment on above: Performed By: #### L 3100.7950, L100.0100, L400.2010, L500.4050, L3100.5500 #### [facility] [address] [place], [address] Nucleated RBC (Bld) [#/Vol] 0 10*3/uL Normal 0-5 [facility] Comment on above: Performed By: #### L 3100.7950, L100.0100, L400.2010, L500.4050, L3100.5500 #### [facility] [address] [place], [address] Platelet mean volume (Bld) [Entitic vol] 9.3 fL Normal 6.2-12.0 [facility] Comment on above: Performed By: #### L 3100.7950, L100.0100, L400.2010, L500.4050, L3100.5500 #### [facility] [address] [place], [address] Platelets (Bld) [#/Vol] 227 10*3/uL Normal 150-450 [facility] Comment on above: Performed By: #### L 3100.7950, L100.0100, L400.2010, L500.4050, L3100.5500 #### [facility] [address] [place], [address] RBC (Bld) [#/Vol] 4.74 10*6/uL Normal 4.2-5.4 [facility] Comment on above: Performed By: #### L 3100.7950, L100.0100, L400.2010, L500.4050, L3100.5500 #### [facility] [address] [place], [address] RDW SD 47.4 fl High 35.1-43.9 [facility] Comment on above: Performed By: #### L 3100.7950, L100.0100, L400.2010, L500.4050, L3100.5500 #### [facility] [address] [place], [address] WBC (Bld) [#/Vol] 3.8 10*3/uL Low 4.4-11.0 [facility] Comment on above: Performed By: #### L 3100.7950, L100.0100, L400.2010, L500.4050, L3100.5500 #### [facility] [address] [place], [address] Comprehensive Metabolic [facility] 02-28-2023 Albumin [Mass/Vol] 3.8 g/dL Normal 3.2-5.0 [facility] Comment on above: Performed By: #### L 3100.7950, L100.0100, L4, L500.4050, L3100.5500 #### [facility] [address] [place], [address] Albumin/Globulin [Mass ratio] 1.1 {ratio} Normal 0.9-2.4 [facility] Comment on above: Performed By: #### L 3100.7950, L100.0100, L4, L500.4050, L3100.5500 #### [facility] [address] [place], [address] ALK P 73 U/L Normal 45-117 [facility] Comment on above: Performed By: #### L 3100.7950, L100.0100, L400.2010, L500.4050, L3100.5500 #### [facility] [address] [place], [address] ALT [Catalytic activity/Vol] 27 U/L Normal 13-56 [facility] Comment on above: Performed By: #### L 3100.7950, L100.0100, L4, L500.4050, L3100.5500 #### [facility] [address] [place], [address] AST [Catalytic activity/Vol] 17 U/L Normal 15-37 [facility] Comment on above: Performed By: #### L 3100.7950, L100.0100, L4, L500.4050, L3100.5500 #### [facility] [address] [place], [address] Bilirubin [Mass/Vol] 0.50 mg/dL Normal 0.20-1.00 [facility] Comment on above: Result Comment: For patients on eltrombopag therapy, use of Dimension [place] TBIL is not recommended. Performed By: #### L 3100.7950, L100.0100, L4, L500.4050, L3100.5500 #### [facility] [address] [place], [address] BUN/CRE 21.3 RATIO High 10-20 [facility] Comment on above: Performed By: #### L 3100.7950, L100.0100, L4, L500.4050, L3100.5500 #### [facility] [address] [place], [address] CA,Total 9.3 mg/dL Normal 8.5-10.1 [facility] Comment on above: Performed By: #### L 3100.7950, L100.0100, L4, L500.4050, L3100.5500 #### [facility] [address] [place], [address] Chloride [Moles/Vol] 105 mmol/L Normal 98-107 [facility] Comment on above: Performed By: #### L 3100.7950, L100.0100, L4, L500.4050, L3100.5500 #### [facility] [address] [place], [address] CO2 [Moles/Vol] 28.0 mmol/L Normal 21.0-32.0 [facility] Comment on above: Performed By: #### L 3100.7950, L100.0100, L400.2010, L500.4050, L3100.5500 #### [facility] [address] [place], [address] Creatinine [Mass/Vol] 0.94 mg/dL Normal 0.55-1.02 [facility] Comment on above: Result Comment: The validity of the calculated GFR GFRAA in patients over 70 years has not been determined. Clinical correlation is essential. Performed By: #### L 3100.7950, L100.0100, L400.2010, L500.4050, L3100.5500 #### [facility] [address] [place], [address] EST GFR - AA 75 mL/min Normal >60 [facility] Comment on above: Result Comment: Afri can [place]riot GFR Calc Performed By: #### L 3100.7950, L100.0100, L400.2010, L500.4050, L3100.5500 #### [facility] [address] [place], [address] GAP 7 Normal 5-15 [facility] Comment on above: Performed By: #### L 3100.7950, L100.0100, L400.2010, L500.4050, L3100.5500 #### [facility] [address] [place], [address] GFR/1.73 sq M.predicted among non-blacks MDRD (S/P/Bld) [Vol rate/Area] 62 mL/min/{1.73_m2} Normal >60 [facility] Comment on above: Result Comment: Non- GFR Calc Performed By: #### L 3100.7950, L100.0100, L400.2010, L500.4050, L3100.5500 #### [facility] [address] [place], [address] Globulin (S) [Mass/Vol] 3.4 g/dL Normal 2.2-4.2 [facility] Comment on above: Performed By: #### L 3100.7950, L100.0100, L400.2010, L500.4050, L3100.5500 #### [facility] [address] [place], [address] Glucose [Mass/Vol] 91 mg/dL Normal 74-106 [facility] Comment on above: Performed By: #### L 3100.7950, L100.0100, L400.2010, L500.4050, L3100.5500 #### [facility] [address] [place], [address] Potassium [Moles/Vol] 3.9 mmol/L Normal 3.5-5.1 [facility] Comment on above: Performed By: #### L 3100.7950, L100.0100, L400.2010, L500.4050, L3100.5500 #### [facility] [address] [place], [address] Sodium [Moles/Vol] 140 mmol/L Normal 136-145 [facility] Comment on above: Performed By: #### L 3100.7950, L100.0100, L400.2010, L500.4050, L3100.5500 #### [facility] [address] [place], [address] T PROT 7.2 g/dL Normal 6.4-8.2 [facility] Comment on above: Performed By: #### L 3100.7950, L100.0100, L400.2010, L500.4050, L3100.5500 #### [facility] [address] [place], [address] Urea nitrogen [Mass/Vol] 20 mg/dL High 7-18 [facility] Comment on above: Performed By: #### L 3100.7950, L100.0100, L400.2011, L500.4050, L3100.5500 #### [facility] [address] [place], [address] Determination of erythrocyte mean corpuscular volume (MCV)Ordered By: Radha Alcantar on 02-28-2023 MCV (RBC) [Entitic vol] 94.9 fL 81-99 [facility] Hematocrit Auto (Bld) [Volum e fraction]Ordered By: Radha Alcantar on 02-28-2023 Hematocrit (Bld) [Volume fraction] 45.0 % 37-47 [facility] Ketones Test strip Ql (U)Ord ered By: Radha Alcantar on 02-28-2023 Ketones Ql (U) Negative Negative [facility] - Chemistry and C hemistry - challengeOrdered By: Radha Alcantar on 02-28-2023 ALP [Catalytic activity/Vol] 73 U/L 45-117 [facility] ALT [Catalytic activity/Vol] 27 U/L 13-56 [facility] CO2 [Moles/Vol] 28.0 mmol/L 21.0-32.0 [facility] Globulin (S) [Mass/Vol] 3.4 g/dL 2.2-4.2 [facility] Urea nitrogen/Creatinine [Mass ratio] 21.3 mg/mg 10-20 [facility] - Hematology and Cell countsOrdered By: Radha Alcantar on 02-28-2023 Erythrocyte distribution width (RBC) [Entitic vol] 47.4 fL 35.1-43.9 [facility] Erythrocyte distribution width (RBC) [Ratio] 13.5 % 11.6-14.6 [facility] Immature granulocytes/100 WBC (Bld) 0.500 % 0.0-0.9 [facility] Comment on above: IG% - Immature Granu locytes (promyelocytes, myelocytes and metamyelocytes) > 1% indicates that a LEFT SHIFT is Present. MCH (RBC) [Entitic mass] 31.0 pg 27.0-32.0 [facility] Nucleated RBC/100 WBC (Bld) [Ratio] 0 % 0-5 [facility] MCHC Auto (RBC) [Mass/Vol]Or dered By: Radha Alcantar on 02-28-2023 MCHC (RBC) [Mass/Vol] 32.7 g/dL 32-36 [facility] Nitrite Test strip Ql (U)Ord ered By: Radha Alcantar on 02-28-2023 Nitrite Ql (U) Negative Negative [facility] No Panel InformationOrdered By: Radha Alcantar on 02-28-2023 Estimated GFR (MDRD) Amer 75 mL/min >60 [facility] Comment on above: GFR Calc Estimated GFR (MDRD) Non-Af Amer 62 mL/min >60 [facility] Comment on above: Non- GFR Calc Platelets bldOrdered By: Letty Alcantar on 02-28-2023 Platelets (Bld) [#/Vol] 227 10*3/uL 150-450 [facility] Protein Test strip Ql (U)Ord ered By: Radha Alcantar on 02-28-2023 Protein Ql (U) Negative Negative [facility] Serum DNA double strand anti body assay (units/volume)Ordered By: Radha Alcantar on 02-28-2023 DNA double strand Ab Qn (S) See comment [facility] Comment on above: TEST RESULTS LIMITSA nti-DNA (DS) Ab Qn <1 IU/mL 0-9 Negative <5 Equivocal 5 - 9 Positive >9 [facility]ING PERFORMED AT [facility] ORIGINAL REPORT ON FILE IN LAB CONTAINS ADDITIONAL TEST SITE INFORMATION. Serum nuclear antibody titer by immunofluorescenceOrdered By: Radha Alcantar on 02-28-2023 Nuclear Ab IF (S) [Titer] See comment [facility] Comment on above: TEST RESULTS LIMITSA NA by IFA Rfx Titer/Pattern Positive Abnormal Negative < 1:80 Borderline 1:80 Positive > 1:80Speckled Pattern 1:80 ICAP nomenclature: AC-2,4,5,29For more information about Hep-2 cell patterns [email or web address].comerMixers.[email or web address] [employer], the official website for the InternationalConsensus on Antinuclear Antibody (KAMI) Patterns (ICAP). ----- Note: A positive KAMI result may occur in healthy individualsor be associated with a variety of diseases. Seeinterpretation below:Pattern Antigen Detected Suggested Disease Association Homogenous DNA(ds,ss,n), High titers - SLE (Smooth) Histone Speckled Sm,STACKER DRIVER,SCL-70, SLE,MCTD, Scleroderma, SS-A/SS-B Sjogrens Nucleolar SCL-70,PM-1/SCL High titers Scleroderma Polymyositis/scleroderma over- lap Centromere Centromere PSS w/Crest syndrome variable Nuclear Dot [id number] Primary Biliary Cirrhosis Nuclear GP210, Primary Biliary CirrhosisMembrane aster A,B,C TESTING PERFORMED AT [facility]. ORIGINAL REPORT ON FILE IN LAB CONTAINS ADDITIONAL TEST SITE INFORMATION. Serum or plasma albumin reji urement (mass/volume)Ordered By: Radha Alcantar on 02-28-2023 Albumin [Mass/Vol] 3.8 g/dL 3.2-5.0 [facility] Serum or plasma albumin/glob ulin mass ratioOrdered By: Radha Alcantar on 02-28-2023 Albumin/Globulin [Mass ratio] 1.1 {ratio} 0.9-2.4 [facility] Serum or plasma calcium reji urement (mass/volume)Ordered By: Radha Alcantar on 02-28-2023 Calcium [Mass/Vol] 9.3 mg/dL 8.5-10.1 [facility] Serum or plasma creatinine m easurement (mass/volume)Ordered By: Radha Alcantar on 02-28-2023 Creatinine [Mass/Vol] 0.94 mg/dL 0.55-1.02 [facility] Comment on above: The validity of the calculated GFR & GFRAA in patients over 70 years has not been determined. Clinical correlation is essential. Serum or plasma urea nitroge n measurement (mass/volume)Ordered By: Radha Alcantar on 02-28-2023 Urea nitrogen [Mass/Vol] 20 mg/dL 7- [facility] Thin prep Papanicolaou smear with manual screeningOrdered By: Radha Alcantar on 02-28-2023 Thin prep Papanicolaou smear with manual screening 17 U/L 15 [facility] Thin prep Papanicolaou smear with manual screening 7 5- [facility] Urinalysis, Routine (Dipstic k)on 02-28-2023 BILIRUBIN URINE Negative Normal Negative [facility] Comment on above: Order Comment: Urine , Random Performed By: #### L 3100.7950, L100.0100, L400.2010, L500.4050, L3100.5500 #### [facility] [address] [place], [address] Clarity (U) Clear Normal Clear [facility] Comment on above: Order Comment: Urine , Random Performed By: #### L 3100.7950, L100.0100, L400.2010, L500.4050, L3100.5500 #### [facility] [address] [place], [address] Color (U) Yellow Normal Yellow [facility] Comment on above: Order Comment: Urine , Random Performed By: #### L 3100.7950, L100.0100, L400.2010, L500.4050, L3100.5500 #### [facility] [address] [place], [address] GLUCOSE, UR Normal Normal Normal [facility] Comment on above: Order Comment: Urine , Random Performed By: #### L 3100.7950, L100.0100, L400.2010, L500.4050, L3100.5500 #### [facility] [address] [place], [address] KETONE UR Negative Normal Negative [facility] Comment on above: Order Comment: Urine , Random Performed By: #### L 3100.7950, L100.0100, L400.2010, L500.4050, L3100.5500 #### [facility] [address] [place], [address] LEUK ESTERASE 25 /ul Abnormal Negative [facility] Comment on above: Order Comment: Urine , Random Performed By: #### L 3100.7950, L100.0100, L400.2010, L500.4050, L3100.5500 #### [facility] [address] [place], [address] Nitrite Ql (U) Negative Normal Negative [facility] Comment on above: Order Comment: Urine , Random Performed By: #### L 3100.7950, L100.0100, L400.2010, L500.4050, L3100.5500 #### [facility] [address] [place], [address] OCCULT BLOOD-UR Negative Normal Negative [facility] Comment on above: Order Comment: Urine , Random Performed By: #### L 3100.7950, L100.0100, L400.2010, L500.4050, L3100.5500 #### [facility] [address] [place], [address] pH UR 5.0 Normal 5.0 - 8.0 [facility] Comment on above: Order Comment: Urine , Random Performed By: #### L 3100.7950, L100.0100, L400.2010, L500.4050, L3100.5500 #### [facility] [address] [place], [address] PROT DIPSTX Negative Normal Negative [facility] Comment on above: Order Comment: Urine , Random Performed By: #### L 3100.7950, L100.0100, L400.2010, L500.4050, L3100.5500 #### [facility] [address] [place], [address] SP.GR. DIPSTX 1.015 Normal 1.002-1.03 0 [facility] Comment on above: Order Comment: Urine , Random Performed By: #### L 3100.7950, L100.0100, L400.2010, L500.4050, L3100.5500 #### [facility] [address] [place], [address] UROBILI Normal Normal Normal [facility] Comment on above: Order Comment: Urine , Random Performed By: #### L 3100.7950, L100.0100, L400.2010, L500.4050, L3100.5500 #### [facility] [address] [facility] [place], [address] Urine blood detectionOrdered By: Radha Alcantar on 02-28-2023 RBC Ql (U) Negative Negative [facility] Urine clarityOrdered By: Letty Alcantar on 02-28-2023 Clarity (U) Clear Clear [facility] Urine color determinationOrd ered By: Radha Alcantar on 02-28-2023 Color (U) Yellow Yellow [facility] Urine glucose detectionOrder ed By: Radha Alcantar on 02-28-2023 Glucose Ql (U) Normal mg/dl Normal [facility] Urine leukocyte esterase det ection by dipstickOrdered By: Radha Alcantar on 02-28-2023 Leukocyte esterase Test strip Ql (U) 25 /ul Negative [facility] Urine pHOrdered By: Radha stevenson on 02-28-2023 pH (U) 5.0 [pH] 5.0 - 8.0 [facility] Urine specific gravity measu rementOrdered By: Radha Alcantar on 02-28-2023 Specific gravity (U) [Rel density] 1.015 1.002-1.03 0 [facility] Urobilinogen Auto test strip Ql (U)Ordered By: Radha Alcantar on 02-28-2023 Urobilinogen Ql (U) Normal mg/dl Normal [facility] Absolute lymphocyte countOrd ered By: Radha Alcantar on 02-21-2023 Lymphocytes Auto (Unsp spec) [#/Vol] 1.27 10*3/uL 0.83-4.51 [facility] Basophil percentageOrdered B y: Radha Alcantar on 02-21-2023 Basophil percentage 0-5 SEEN /hpf 0-5 [facility] Basophil percentage See comment [facility] Comment on above: TEST RESULTS LIMITSS jogren's Ab, Anti-SS-A/-SS-BSjogren's Anti-SS-A <0.2 AI 0.0-0.9Sjogren's Anti-SS-B <0.2 AI 0.0-0.9 TESTING PERFORMED AT [facility]. ORIGINAL REPORT ON FILE IN LAB CONTAINS ADDITIONAL TEST SITE INFORMATION. Basophil percentage Not Reportable [facility] Basophils/100 WBC (Bld) 0.8 % 0-1 [facility] Bilirubin [Mass/Vol] 0.40 mg/dL 0.20-1.00 [facility] Comment on above: For patients on eltr ombopag therapy, use of Dimension [place] TBIL is not recommended. Chloride [Moles/Vol] 110 mmol/L 98-107 [facility] Eosinophils/100 WBC (Bld) 2.4 % 0-5 [facility] Glucose [Mass/Vol] 96 mg/dL 74-106 [facility] Neutrophils (Bld) [#/Vol] 1.9 10*3/uL 2.0-7.7 [facility] Neutrophils/100 WBC (Bld) 49.9 % 47-70 [facility] Potassium [Moles/Vol] 3.8 mmol/L 3.5-5.1 [facility] Protein [Mass/Vol] 6.8 g/dL 6.4-8.2 [facility] Sodium [Moles/Vol] 141 mmol/L 136-145 [facility] WBC (Bld) [#/Vol] 3.7 10*3/uL 4.4-11.0 [facility] Bilirubin Test strip Ql (U)O rdered By: Radha Alcantar on 02-21-2023 Bilirubin Ql (U) Negative Negative [facility] Blood erythrocytes count (nu mber/volume)Ordered By: Radha Alcantar on 02-21-2023 RBC (Bld) [#/Vol] 4.34 10*6/uL 4.2-5.4 [facility] Blood hemoglobin measurement (mass/volume)Ordered By: Radha Alcantar on 02-21-2023 Hemoglobin (Bld) [Mass/Vol] 13.5 g/dL 12.0-15.0 [facility] Blood lymphocytes/100 leukoc ytesOrdered By: Radha Alcantar on 02-21-2023 Lymphocytes/100 WBC (Bld) 34.0 % 19-41 [facility] Blood monocytes/100 leukocyt esOrdered By: Radha Alcantar on 02-21-2023 Monocytes/100 WBC (Bld) 12.6 % 0-10 [facility] Blood platelet mean volumeOr dered By: Radha Alcantar on 02-21-2023 Platelet mean volume (Bld) [Entitic vol] 9.8 fL 6.2-12.0 [facility] CBC W/Diff, Automatedon 02-10 Absolute Lymph 1.27 X10 3/uL Normal 0.83-4.51 [facility] Comment on above: Performed By: #### L 500.4050, L3100.7950, L3100.9100, L400.0001, L3410.1110, L100.0100, L3100.5500 #### [facility] [address] [place], [address] Absolute Neut 1.9 X10 3/uL Low 2.0-7.7 [facility] Comment on above: Performed By: #### L 500.4050, L3100.7950, L3100.9100, L400.0001, L3410.1110, L100.0100, L3100.5500 #### [facility] [address] [place], [address] Basophils/100 WBC (Bld) 0.8 % Normal 0-1 [facility] Comment on above: Performed By: #### L 500.4050, L3100.7950, L3100.9100, L400.0001, L3410.1110, L100.0100, L3100.5500 #### [facility] [address] [place], [address] Eosinophils/100 WBC (Bld) 2.4 % Normal 0-5 [facility] Comment on above: Performed By: #### L 500.4050, L3100.7950, L3100.9100, L400.0001, L3410.1110, L100.0100, L3100.5500 #### [facility] [address] [place], [address] Erythrocyte distribution width (RBC) [Ratio] 13.7 % Normal 11.6-14.6 [facility] Comment on above: Performed By: #### L 500.4050, L3100.7950, L3100.9100, L400.0001, L3410.1110, L100.0100, L3100.5500 #### [facility] [address] [place], [address] Hematocrit (Bld) [Volume fraction] 41.2 % Normal 37-47 [facility] Comment on above: Performed By: #### L 500.4050, L3100.7950, L3100.9100, L400.0001, L3410.1110, L100.0100, L3100.5500 #### [facility] [address] [place], [address] Hemoglobin (Bld) [Mass/Vol] 13.5 g/dL Normal 12.0-15.0 [facility] Comment on above: Performed By: #### L 500.4050, L3100.7950, L3100.9100, L400.0001, L3410.1110, L100.0100, L3100.5500 #### [facility] [address] [place], [address] IG% 0.300 Normal 0.0-0.9 [facility] Comment on above: Result Comment: IG% - Immature Granulocytes (promyelocytes, myelocytes and metamyelocytes) > 1% indicates that a LEFT SHIFT is Present. Performed By: #### L 500.4050, L3100.7950, L3100.9100, L400.0001, L3410.1110, L100.0100, L3100.5500 #### [facility] [address] [place], [address] Lymphocytes/100 WBC (Bld) 34.0 % Normal 19-41 [facility] Comment on above: Performed By: #### L 500.4050, L3100.7950, L3100.9100, L400.0001, L3410.1110, L100.0100, L3100.5500 #### [facility] [address] [place], [address] MCH (RBC) [Entitic mass] 31.1 pg Normal 27.0-32.0 [facility] Comment on above: Performed By: #### L 500.4050, L3100.7950, L3100.9100, L400.0001, L3410.1110, L100.0100, L3100.5500 #### [facility] [address] [place], [address] MCHC (RBC) [Mass/Vol] 32.8 g/dL Normal 32-36 [facility] Comment on above: Performed By: #### L 500.4050, L3100.7950, L3100.9100, L400.0001, L3410.1110, L100.0100, L3100.5500 #### [facility] [address] [place], [address] MCV (RBC) [Entitic vol] 94.9 fL Normal 81-99 [facility] Comment on above: Performed By: #### L 500.4050, L3100.7950, L3100.9100, L400.0001, L3410.1110, L100.0100, L3100.5500 #### [facility] [address] [place], [address] Monocytes/100 WBC (Bld) 12.6 % High 0-10 [facility] Comment on above: Performed By: #### L 500.4050, L3100.7950, L3100.9100, L400.0001, L3410.1110, L100.0100, L3100.5500 #### [facility] [address] [place], [address] Neutrophils/100 WBC (Bld) 49.9 % Normal 47-70 [facility] Comment on above: Performed By: #### L 500.4050, L3100.7950, L3100.9100, L400.0001, L3410.1110, L100.0100, L3100.5500 #### [facility] [address] [place], [address] Nucleated RBC (Bld) [#/Vol] 0 10*3/uL Normal 0-5 [facility] Comment on above: Performed By: #### L 500.4050, L3100.7950, L3100.9100, L400.0001, L3410.1110, L100.0100, L3100.5500 #### [facility] [address] [place], [address] Platelet mean volume (Bld) [Entitic vol] 9.8 fL Normal 6.2-12.0 [facility] Comment on above: Performed By: #### L 500.4050, L3100.7950, L3100.9100, L400.0001, L3410.1110, L100.0100, L3100.5500 #### [facility] [address] [place], [address] Platelets (Bld) [#/Vol] 201 10*3/uL Normal 150-450 [facility] Comment on above: Performed By: #### L 500.4050, L3100.7950, L3100.9100, L400.0001, L3410.1110, L100.0100, L3100.5500 #### [facility] [address] [place], [address] RBC (Bld) [#/Vol] 4.34 10*6/uL Normal 4.2-5.4 [facility] Comment on above: Performed By: #### L 500.4050, L3100.7950, L3100.9100, L400.0001, L3410.1110, L100.0100, L3100.5500 #### [facility] [address] [place], [address] RDW SD 48.4 fl High 35.1-43.9 [facility] Comment on above: Performed By: #### L 500.4050, L3100.7950, L3100.9100, L400.0001, L3410.1110, L100.0100, L3100.5500 #### [facility] [address] [place], [address] WBC (Bld) [#/Vol] 3.7 10*3/uL Low 4.4-11.0 [facility] Comment on above: Performed By: #### L 500.4050, L3100.7950, L3100.9100, L400.0001, L3410.1110, L100.0100, L3100.5500 #### [facility] [address] [place], [address] Comprehensive Metabolic Prof ilon 02-21-2023 Albumin [Mass/Vol] 3.5 g/dL Normal 3.2-5.0 [facility] Comment on above: Performed By: #### L 500.4050, L3100.7950, L3100.9100, L400.0001, L3410.1110, L100.0100, L3100.5500 #### [facility] [address] [place], [address] Albumin/Globulin [Mass ratio] 1.1 {ratio} Normal 0.9-2.4 [facility] Comment on above: Performed By: #### L 500.4050, L3100.7950, L3100.9100, L400.0001, L3410.1110, L100.0100, L3100.5500 #### [facility] [address] [place], [address] ALK P 76 U/L Normal 45-117 [facility] Comment on above: Performed By: #### L 500.4050, L3100.7950, L3100.9100, L400.0001, L3410.1110, L100.0100, L3100.5500 #### [facility] [address] [place], [address] ALT [Catalytic activity/Vol] 20 U/L Normal 13-56 [facility] Comment on above: Performed By: #### L 500.4050, L3100.7950, L3100.9100, L400.0001, L3410.1110, L100.0100, L3100.5500 #### [facility] [address] [place], [address] AST [Catalytic activity/Vol] 18 U/L Normal 15-37 [facility] Comment on above: Performed By: #### L 500.4050, L3100.7950, L3100.9100, L400.0001, L3410.1110, L100.0100, L3100.5500 #### [facility] [address] [place], [address] Bilirubin [Mass/Vol] 0.40 mg/dL Normal 0.20-1.00 [facility] Comment on above: Result Comment: For patients on eltrombopag therapy, use of Dimension [place] TBIL is not recommended. Performed By: #### L 500.4050, L3100.7950, L3100.9100, L400.0001, L3410.1110, L100.0100, L3100.5500 #### [facility] [address] [place], [address] BUN/CRE 19.3 RATIO Normal 10-20 [facility] Comment on above: Performed By: #### L 500.4050, L3100.7950, L3100.9100, L400.0001, L3410.1110, L100.0100, L3100.5500 #### [facility] [address] [place], [address] CA,Total 8.7 mg/dL Normal 8.5-10.1 [facility] Comment on above: Performed By: #### L 500.4050, L3100.7950, L3100.9100, L400.0001, L3410.1110, L100.0100, L3100.5500 #### [facility] [address] [place], [address] Chloride [Moles/Vol] 110 mmol/L High 98-107 [facility] Comment on above: Performed By: #### L 500.4050, L3100.7950, L3100.9100, L400.0001, L3410.1110, L100.0100, L3100.5500 #### [facility] [address] [place], [address] CO2 [Moles/Vol] 26.0 mmol/L Normal 21.0-32.0 [facility] Comment on above: Performed By: #### L 500.4050, L3100.7950, L3100.9100, L400.0001, L3410.1110, L100.0100, L3100.5500 #### [facility] [address] [place], [address] Creatinine [Mass/Vol] 0.83 mg/dL Normal 0.55-1.02 [facility] Comment on above: Result Comment: The validity of the calculated GFR GFRAA in patients over 70 years has not been determined. Clinical correlation is essential. Performed By: #### L 500.4050, L3100.7950, L3100.9100, L400.0001, L3410.1110, L100.0100, L3100.5500 #### [facility] [address] [place], [address] EST GFR - AA 87 mL/min Normal >60 [facility] Comment on above: Result Comment: Afri can Cypriot GFR Calc Performed By: #### L 500.4050, L3100.7950, L3100.9100, L400.0001, L3410.1110, L100.0100, L3100.5500 #### [facility] [address] [place], [address] GAP 5 Normal 5-15 [facility] Comment on above: Performed By: #### L 500.4050, L3100.7950, L3100.9100, L400.0001, L3410.1110, L100.0100, L3100.5500 #### [facility] [address] [place], [address] GFR/1.73 sq M.predicted among non-blacks MDRD (S/P/Bld) [Vol rate/Area] 72 mL/min/{1.73_m2} Normal >60 [facility] Comment on above: Result Comment: Non- GFR Calc Performed By: #### L 500.4050, L3100.7950, L3100.9100, L400.0001, L3410.1110, L100.0100, L3100.5500 #### [facility] [address] [place], [address] Globulin (S) [Mass/Vol] 3.3 g/dL Normal 2.2-4.2 [facility] Comment on above: Performed By: #### L 500.4050, L3100.7950, L3100.9100, L400.0001, L3410.1110, L100.0100, L3100.5500 #### [facility] [address] [place], [address] Glucose [Mass/Vol] 96 mg/dL Normal 74-106 [facility] Comment on above: Performed By: #### L 500.4050, L3100.7950, L3100.9100, L400.0001, L3410.1110, L100.0100, L3100.5500 #### [facility] [address] [place], [address] Potassium [Moles/Vol] 3.8 mmol/L Normal 3.5-5.1 [facility] Comment on above: Performed By: #### L 500.4050, L3100.7950, L3100.9100, L400.0001, L3410.1110, L100.0100, L3100.5500 #### [facility] Laboratory [address] [place], [address] Sodium [Moles/Vol] 141 mmol/L Normal 136-145 [facility] Comment on above: Performed By: #### L 500.4050, L3100.7950, L3100.9100, L400.0001, L3410.1110, L100.0100, L3100.5500 #### [facility] [address] [place], [place], [id number] T PROT 6.8 g/dL Normal 6.4-8.2 [facility] Comment on above: Performed By: #### L 500.4050, L3100.7950, L3100.9100, L400.0001, L3410.1110, L100.0100, L3100.5500 #### [facility] [address] [place], [address] Urea nitrogen [Mass/Vol] 16 mg/dL Normal 7-18 [facility] Comment on above: Performed By: #### L 500.4050, L3100.7950, L3100.9100, L400.0001, L3410.1110, L100.0100, L3100.5500 #### [facility] [address] [place], [place], [id number] Determination of erythrocyte mean corpuscular volume (MCV)Ordered By: Radha Alcantar on 02-21-2023 MCV (RBC) [Entitic vol] 94.9 fL 81-99 [facility] Hematocrit Auto (Bld) [Volum e fraction]Ordered By: Radha Alcantar on 02-21-2023 Hematocrit (Bld) [Volume fraction] 41.2 % 37-47 [facility] Ketones Test strip Ql (U)Ord ered By: Radha Alcantar on 02-21-2023 Ketones Ql (U) Negative Negative [facility] Laboratory - Chemistry and C hemistry - challengeOrdered By: Radha Alcantar on 02-21-2023 ALP [Catalytic activity/Vol] 76 U/L 45-117 [facility] ALT [Catalytic activity/Vol] 20 U/L 13-56 [facility] CO2 [Moles/Vol] 26.0 mmol/L 21.0-32.0 [facility] Globulin (S) [Mass/Vol] 3.3 g/dL 2.2-4.2 [facility] Urea nitrogen/Creatinine [Mass ratio] 19.3 mg/mg 10-20 [facility] Laboratory - Hematology and Cell countsOrdered By: Radha Alcantar on 02-21-2023 Erythrocyte distribution width (RBC) [Entitic vol] 48.4 fL 35.1-43.9 [facility] Erythrocyte distribution width (RBC) [Ratio] 13.7 % 11.6-14.6 [facility] Immature granulocytes/100 WBC (Bld) 0.300 % 0.0-0.9 [facility] Comment on above: IG% - Immature Granu locytes (promyelocytes, myelocytes and metamyelocytes) > 1% indicates that a LEFT SHIFT is Present. MCH (RBC) [Entitic mass] 31.1 pg 27.0-32.0 [facility] Nucleated RBC/100 WBC (Bld) [Ratio] 0 % 0-5 [facility] MCHC Auto (RBC) [Mass/Vol]Or dered By: Radha Alcantar on 02-21-2023 MCHC (RBC) [Mass/Vol] 32.8 g/dL 32-36 [facility] Mucus LM Ql (Urine sed)Order ed By: Radha Alcantar on 02-21-2023 Mucus Ql (Urine sed) 0 SEEN /hpf [facility] Nitrite Test strip Ql (U)Ord ered By: Radha Alcantar on 02-21-2023 Nitrite Ql (U) Negative Negative [facility] No Panel InformationOrdered By: Radha Alcantar on 02-21-2023 Estimated GFR (MDRD) Amer 87 mL/min >60 [facility] Comment on above: GFR Calc Estimated GFR (MDRD) Non-Af Amer 72 mL/min >60 [facility] Comment on above: Non- GFR Calc STACKER DRIVER Antibody See comment [facility] Comment on above: TEST RESULTS LIMITSR PLASTIC INSTALLER Antibodies 0.6 AI 0.0-0.9Smith Antibodies 0.2 AI 0.0-0.9 TESTING PERFORMED AT [facility]. ORIGINAL REPORT ON FILE IN LAB CONTAINS ADDITIONAL TEST SITE INFORMATION. Platelets bldOrdered By: Letty Alcantar on 02-21-2023 Platelets (Bld) [#/Vol] 201 10*3/uL 150-450 [facility] Protein Test strip Ql (U)Ord ered By: Radha Alcantar on 02-21-2023 Protein Ql (U) Negative Negative [facility] Serum DNA double strand anti body assay (units/volume)Ordered By: Radha Alcantar on 02-21-2023 DNA double strand Ab Qn (S) See comment [facility] Comment on above: TEST RESULTS LIMITSA nti-DNA (DS) Ab Qn <1 IU/mL 0-9 Negative <5 Equivocal 5 - 9 Positive >9 TESTING PERFORMED AT [facility]. ORIGINAL REPORT ON FILE IN LAB CONTAINS ADDITIONAL TEST SITE INFORMATION. Serum Holley extractable nucl ear antibody detectionOrdered By: Radha Alcantar on 02-21-2023 Holley extractable nuclear Ab Ql (S) Not Reportable [facility] Serum nuclear antibody titer by immunofluorescenceOrdered By: Radha Alcantar on 02-21-2023 Nuclear Ab IF (S) [Titer] See comment [facility] Comment on above: TEST RESULTS LIMITSA NA by IFA Rfx Titer/Pattern Positive Abnormal Negative < 1:80 Borderline 1:80 Positive > 1:80Speckled Pattern 1:160 High ICAP nomenclature: AC-2,4,5,29Note: For more information about Hep-2 cell patterns useANApatterns.org, the official website for the InternationalConsensus on Antinuclear Antibody (KAMI) Patterns (ICAP). ----- Note: A positive KAMI result may occur in healthy individualsor be associated with a variety of diseases. Seeinterpretation below:Pattern Antigen Detected Suggested Disease Association Homogenous DNA(ds,ss,n), High titers - SLE (Smooth) Histone Speckled Sm,STACKER DRIVER,SCL-70, SLE,MCTD, Scleroderma, SS-A/SS-B Sjogrens Nucleolar SCL-70,PM-1/SCL High titers Scleroderma Polymyositis/scleroderma over- lap Centromere Centromere PSS w/Crest syndrome variable Nuclear Dot [id number] Primary Biliary Cirrhosis Nuclear GP210, Primary Biliary CirrhosisMembrane aster A,B,C TESTING PERFORMED AT [facility]. ORIGINAL REPORT ON FILE IN LAB CONTAINS ADDITIONAL TEST SITE INFORMATION. Serum or plasma albumin reji urement (mass/volume)Ordered By: Radha Alcantar on 02-21-2023 Albumin [Mass/Vol] 3.5 g/dL 3.2-5.0 [facility] Serum or plasma albumin/glob ulin mass ratioOrdered By: Radha Alcantar on 02-21-2023 Albumin/Globulin [Mass ratio] 1.1 {ratio} 0.9-2.4 [facility] Serum or plasma calcium reji urement (mass/volume)Ordered By: Radha Alcantar on 02-21-2023 Calcium [Mass/Vol] 8.7 mg/dL 8.5-10.1 [facility] Serum or plasma creatinine m easurement (mass/volume)Ordered By: Radha Alcantar on 02-21-2023 Creatinine [Mass/Vol] 0.83 mg/dL 0.55-1.02 [facility] Comment on above: The validity of the calculated GFR & GFRAA in patients over 70 years has not been determined. Clinical correlation is essential. Serum or plasma urea nitroge n measurement (mass/volume)Ordered By: Radha Alcantar on 02-21-2023 Urea nitrogen [Mass/Vol] 16 mg/dL 7-18 [facility] Squamous epithelial cells de tection in urine sediment by light microscopyOrdered By: Radha Alcantar on 02-21-2023 Epithelial cells.squamous LM Ql (Urine sed) 0 SEEN /hpf 5-10 [facility] Thin prep Papanicolaou smear with manual screeningOrdered By: Radha Alcantar on 02-21-2023 Thin prep Papanicolaou smear with manual screening 18 U/L 15-37 [facility] Thin prep Papanicolaou smear with manual screening 5 5-15 [facility] Urinalysis, Completeon 02-21 WBC 0-5 SEEN Normal 0-5 [facility] Comment on above: Order Comment: CLEAN CATCH Performed By: #### L 500.4050, L3100.7950, L3100.9100, L400.0001, L3410.1110, L100.0100, L3100.5500 #### [facility] [address] [place], [address] BACTERIA 0 SEEN Normal None Seen [facility] Comment on above: Order Comment: CLEAN CATCH Performed By: #### L 500.4050, L3100.7950, L3100.9100, L400.0001, L3410.1110, L100.0100, L3100.5500 #### [facility] [address] [place], [address] EPI,SQUAMOUS 0 SEEN Normal 5- [facility] Comment on above: Order Comment: CLEAN CATCH Performed By: #### L 500.4050, L3100.7950, L3100.9100, L400.0001, L3410.1110, L100.0100, L3100.5500 #### [facility] [address] [place], [address] Mucus Ql (Urine sed) [address] [facility] Comment on above: Order Comment: CLEAN CATCH Performed By: #### L 500.4050, L3100.7950, L3100.9100, L400.0001, L3410.1110, L100.0100, L3100.5500 #### [facility] [address] [place], [address] RBC 0 SEEN Normal 0-5 [facility] Comment on above: Order Comment: CLEAN CATCH Performed By: #### L 500.4050, L3100.7950, L3100.9100, L400.0001, L3410.1110, L100.0100, L3100.5500 #### [facility] [address] [place], [address] Urine blood detectionOrdered By: Radha Alcantar on 02-21-2023 RBC Ql (U) Negative Negative [facility] RBC Ql (U) 0 SEEN /hpf 0-5 [facility] Urine clarityOrdered By: Letty Alcantar on 02-21-2023 Clarity (U) Clear Clear [facility] Urine color determinationOrd ered By: Radha Alcantar on 02-21-2023 Color (U) Yellow Yellow [facility] Urine glucose detectionOrder ed By: Radha Alcantar on 02-21-2023 Glucose Ql (U) Normal mg/dl Normal [facility] Urine leukocyte esterase det ection by dipstickOrdered By: Radha Alcantar on 02-21-2023 Leukocyte esterase Test strip Ql (U) 100 /ul Negative [facility] Urine pHOrdered By: Radha stevenson on 02-21-2023 pH (U) 6.5 [pH] 5.0 - 8.0 [facility] Urine sediment bacteria coun t by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 BY: [facility] Cojrxj8314 [facility] [id number] BY: [address] [id number] Information: 210279,K60622 Hematocrit (Bld) [Volume fraction] 39.9 % Normal 34.0-46.6 [facility] Work Phone: Comment on above: PATIENT NOT FASTINGP ERFORMED BY: [facility] Jcjzxz9426 [facility] [id number] BY: [address] [id number] Information: 442968,J04173 Hemoglobin (Bld) [Mass/Vol] 13.6 g/dL Normal 11.1-15.9 [facility] Work Phone: Comment on above: PATIENT NOT FASTINGP ERFORMED BY: LabCoTimothy [place] 5310670 [facility] [id number] BY: [address] [id number] Information: 057313,U54316 Immature granulocytes (Bld) [#/Vol] 0.0 {x10E3/uL} Normal 0.0-0.1 [facility] Work Phone: Comment on above: PATIENT NOT FASTINGP ERFORMED BY: LabCo[place] 5310670 [facility] [id number] BY: [address] [id number] Information: 040519,H66946 Immature granulocytes/100 WBC (Bld) 0 % Normal 0-2 [facility] Work Phone: Comment on above: PATIENT NOT FASTINGP ERFORMED BY: [facility] Ocgoib7268 [facility] [id number] BY: [address] [id number] Information: 087122,P68063 Lymphocytes (Bld) [#/Vol] 1.4 {x10E3/uL} Normal 0.7-3.1 [facility] Work Phone: Comment on above: PATIENT NOT FASTINGP ERFORMED BY: LabCoBayshore Community HospitalCmzhht9444 [facility] [id number] BY: [address] [id number] Information: 400569,O23657 Lymphocytes/100 WBC (Bld) 38 % Normal 14-46 [facility] Work Phone: Comment on above: PATIENT NOT FASTINGP ERFORMED BY: JESUS [facility] Xuyeoy3877 [facility] [id number] BY: [address] [id number] Information: 821476,X74986 MCH (RBC) [Entitic mass] 30.3 pg Normal 26.6-33.0 [facility] Work Phone: Comment on above: PATIENT NOT FASTINGP ERFORMED BY: JESUS [facility] Lqzhcp1560 [facility] [id number] BY: [address] [id number] Information: 842365,J18503 MCHC (RBC) [Mass/Vol] 34.1 g/dL Normal 31.5-35.7 [facility] Work Phone: Comment on above: PATIENT NOT FASTINGP ERFORMED BY: JES[facility] Ukbnan9361 [facility] [id number] BY: [address] [id number] Information: 994139,S04568 MCV (RBC) [Entitic vol] 89 fL Normal 79-97 [facility] Internal Medicine Work Phone: Comment on above: PATIENT NOT FASTINGP ERFORMED BY: JESUS [facility] Adpevz7642 [facility] [id number] BY: [address] [id number] Information: 111090,[id number] Monocytes (Bld) [#/Vol] 0.4 {x10E3/uL} Normal 0.1-0.9 [facility] Internal Medicine Work Phone: Comment on above: PATIENT NOT FASTINGP ERFORMED BY: JESUS [facility] Ovfwtt9772 [facility] [id number] BY: [facility] [id number] Information: 073388,[id number] Monocytes/100 WBC (Bld) 11 % Normal 4-12 [facility] Internal Medicine Work Phone: Comment on above: PATIENT NOT FASTINGP ERFORMED BY: JESUS [facility] Fagxgm7353 [facility] [id number] BY: Lab[address] [id number] Information: 555378,M65151 Neutrophils (Bld) [#/Vol] 1.6 {x10E3/uL} Normal 1.4-7.0 [facility] Work Phone: Comment on above: PATIENT NOT FASTINGP ERFORMED BY: JESUS [facility] Wexwhv6192 [facility] [id number] BY: [address] [id number] Information: 646255,W05310 Neutrophils/100 WBC (Bld) 46 % Normal 40-74 [facility] Work Phone: Comment on above: PATIENT NOT FASTINGP ERFORMED BY: JESUS [facility] Zamuhu0178 [facility] [id number] BY: [address] [id number] Information: 155951,H05777 Platelets (Bld) [#/Vol] 171 {x10E3/uL} Normal 150-379 [facility] Work Phone: Comment on above: PATIENT NOT FASTINGP ERFORMED BY: [facility] Laelwf4546 [facility] [id number] BY: [address] [id number] Information: [id number] RBC (Bld) [#/Vol] 4.49 {x10E6/uL} Normal 3.77-5.28 Co mprehensive [facility] Work Phone: Comment on above: PATIENT NOT FASTINGP ERFORMED BY: JESUS [facility] Ahxwar7482 [facility] [id number] BY: [employer] [id number] Information: [id number],[id number] WBC (Bld) [#/Vol] 3.6 {x10E3/uL} Normal 3.4-10.8 [facility] Work Phone: Comment on above: PATIENT NOT FASTINGP ERFORMED BY: JESUS [facility] Anzdxb6694 [facility] [id number] BY: [employer] [id number] Information: 269277,H54204 [facility] ANTIBODY (87721)Ordered By: Clinical Services Director on 04-10-2014 Cyclic citrullinated peptide IgA+IgG IA Qn 8 {units} Normal 0-19 Comprehens hans Internal Medicine Work Phone: Comment on above: Negative <20 Weak po sitive 20 - 39 Moderate positive 40 - 59 Strong positive >59 PATIENT NOT FASTINGP ERFORMED BY: JESUS [facility] Eventsrp Uojcdi8463 [facility] [id number] BY: [employer] [id number] METABOLIC PANEL, COMPREHENSI VE (38380)Ordered By: Clinical Services Director on 04-10-2014 Albumin [Mass/Vol] 4.4 g/dL Normal 3.6-4.8 [facility] Internal Medicine Work Phone: Comment on above: PATIENT NOT FASTINGP ERFORMED BY: JESUS Lab[facility] Fwyudp0897 [facility] [id number] BY: Lab[address] [id number] Albumin/Globulin [Mass ratio] 2.1 {ratio} Normal 1.1-2.5 [facility] Internal Medicine Work Phone: Comment on above: PATIENT NOT FASTINGP ERFORMED BY: JESUS [facility] Qfdbip3447 [address] RoadDublin [place] [id number] BY: [address] [id number] ALP [Catalytic activity/Vol] 86 [iU]/L Normal 39-117 [facility] Work Phone: Comment on above: PATIENT NOT FASTINGP ERFORMED BY: JESUS [facility] Efpvuz9392 [address] RoadDublin [place] [id number] BY: [facility] [id number] ALT [Catalytic activity/Vol] 16 [iU]/L Normal 0-32 [facility] Work Phone: Comment on above: PATIENT NOT FASTINGP ERFORMED BY: JESUS [facility] Rauowb3995 [address] RoadDublin [place] [id number] BY: [address] [id number] AST [Catalytic activity/Vol] 20 [iU]/L Normal 0-40 [facility] Work Phone: Comment on above: PATIENT NOT FASTINGP ERFORMED BY: JESUS [facility] Rdopnh9577 [address] RoadDublin [place] [id number] BY: [address] [id number] Bilirubin [Mass/Vol] 0.4 mg/dL Normal 0.0-1.2 [facility] Work Phone: Comment on above: PATIENT NOT FASTINGP ERFORMED BY: JESUS [facility] Cflnez3360 [address] RoadDublin [place] [id number] BY: [address] [id number] Calcium [Mass/Vol] 9.5 mg/dL Normal 8.6-10.2 [facility] Internal Medicine Work Phone: Comment on above: PATIENT NOT FASTINGP ERFORMED BY: JESUS [facility] Bapfez7237 [address] RoadDublin [place] [id number] BY: BN [facility] [address] [id number] Chloride [Moles/Vol] 106 mmol/L Normal 97-108 [facility] Work Phone: Comment on above: PATIENT NOT FASTINGP ERFORMED BY: JESUS [facility] Qwkmnq7202 [address] RoadDublin [place] [id number] BY: [facility] [address] [id number] CO2 [Moles/Vol] 22 mmol/L Normal 18-29 Comprehen [facility] Internal Medicine Work Phone: Comment on above: PATIENT NOT FASTINGP ERFORMED BY: CB [facility] Hjojdj0107 [facility] [id number] BY: [facility] [address] [id number] Creatinine [Mass/Vol] 0.80 mg/dL Normal 0.57-1.00 [facility] Work Phone: Comment on above: PATIENT NOT FASTINGP ERFORMED BY: JESUS [facility] Lceujt3340 Morgan RoadDuin [place] [id number] BY: [facility] [id number] GFR/1.73 sq M predicted among blacks CKD-EPI (S/P/Bld) [Vol rate/Area] 91 mL/min/1.73 Normal [facility] Work Phone: Comment on above: PATIENT NOT FASTINGP ERFORMED BY: CB [facility] Fvhnif5814 [address] RoadDuin [place] [id number] BY: [facility] [address] [id number] GFR/1.73 sq M predicted among non-blacks CKD-EPI (S/P/Bld) [Vol rate/Area] 79 mL/min/1.73 Normal [facility] Work Phone: Comment on above: PATIENT NOT FASTINGP ERFORMED BY: CB [facility] Sckfjz1624 [address] RoadDublin [place] [id number] BY: [facility] [id number] Globulin (S) [Mass/Vol] 2.1 g/dL Normal 1.5-4.5 [facility] Internal Medicine Work Phone: Comment on above: PATIENT NOT FASTINGP ERFORMED BY: CB [facility] Bzruma4427 [address] RoadDuin [place] [id number] BY: [facility] [id number] Glucose [Mass/Vol] 100 mg/dL Abnormal 65-99 [facility] Internal Medicine Work Phone: Comment on above: PATIENT NOT FASTINGP ERFORMED BY: CB [facility] Zbnlsk6110 [facility] [id number] BY: [facility] [id number] Potassium [Moles/Vol] 4.3 mmol/L Normal 3.5-5.2 [facility] Work Phone: Comment on above: PATIENT NOT FASTINGP ERFORMED BY: [facility] Unevlq3137 [facility] [id number] BY: [facility] [id number] Protein [Mass/Vol] 6.5 g/dL Normal 6.0-8.5 [facility] Internal Medicine Work Phone: Comment on above: PATIENT NOT FASTINGP ERFORMED BY: [facility] Uoabmh9483 [facility] [id number] BY: [facility] [id number] Sodium [Moles/Vol] 144 mmol/L Normal 134-144 [facility] Internal Medicine Work Phone: Comment on above: PATIENT NOT FASTINGP ERFORMED BY: CB [facility] Yvjvyc3324 [facility] [id number] BY: [facility] [id number] Urea nitrogen [Mass/Vol] 13 mg/dL Normal 8- [facility] Work Phone: Comment on above: PATIENT NOT FASTINGP ERFORMED BY: JESUS [facility] Lnpuhy7759 [facility] [id number] BY: [employer] [id number] Urea nitrogen/Creatinine [Mass ratio] 16 mg/mg Normal 11- [facility] Work Phone: Comment on above: PATIENT NOT FASTINGP ERFORMED BY: JESUS [facility] Ipqfhx4128 [facility] [id number] BY: [facility] [id number] RHEUMATOID FACTOR-QUANT (353 35)Ordered By: Clinical Services Director on 04-10-2014 Rheumatoid factor Qn 7.7 {IU/mL} Normal 0.0-13.9 [facility] Work Phone: Comment on above: PATIENT NOT FASTINGP ERFORMED BY: JESUS [facility] Osibts9110 [facility] [id number] BY: [employer] [id number] SED RATE ERYTHROCYTE (90029) Ordered By: Clinical Services Director on 04-10-2014 ESR (Bld) [Velocity] 3 mm/h Normal 0-40 [facility] Internal Medicine Work Phone: Comment on above: PATIENT NOT FASTINGP ERFORMED BY: JESUS [facility] Hjvxig8454 [facility] [id number] BY: [employer] [id number] T3, FREE (TRIDOTHYRONINE) (7 3783)Ordered By: Clinical Services Director on 04-10-2014 Free T3 [Mass/Vol] 3.4 pg/mL Normal 2.0-4.4 [facility] Internal Medicine Work Phone: Comment on above: PATIENT NOT FASTINGP ERFORMED BY: CB [facility] Mdfrvi5568 Morgan RoadDublin [place] [id number] BY: Homeforswap[address] [id number] T4, FREE (THYROXINE) (64635) Ordered By: Clinical Services Director on 04-10-2014 Free T4 [Mass/Vol] 1.13 ng/dL Normal 0.82-1.77 [facility] Internal Medicine Work Phone: Comment on above: PATIENT NOT FASTINGP ERFORMED BY: [email or web address] Acnqnp3076 [facility] [id number] BY: [employer] [address] [id number] TSH (03233)Ordered By: Chelsea guerra [address] Service on 04-10-2014 TSH Qn 1.220 {uIU/mL} Normal 0.450-4.50 0 [facility] Work Phone: Comment on above: PATIENT NOT FASTINGP ERFORMED BY: Questra6370 [facility] [id number] BY: [employer] [address] [id number] VITAMIN B-12 (CYANOCOBALAMIN ) (07851)Ordered By: Clinical Services Director on 04-10-2014 Cobalamin (Vitamin B12) [Mass/Vol] 233 pg/mL Normal 211-946 [facility] Work Phone: Comment on above: PATIENT NOT FASTINGP ERFORMED BY: [email or web address] Ibrsbq7454 [facility] [id number] BY: [employer] [id number] Vitamin D Hydroxy (03031)Ord ered By: Clinical Services Director on 04-10-2014 25-Hydroxyvitamin D2+25-Hydroxyvitamin D3 [Mass/Vol] 32.3 ng/mL Normal 30.0-100.0 [facility] Work Phone: Comment on above: Vitamin D deficiency has been defined by the [place] ofMedicine and an Endocrine Society practice guideline as alevel of serum 25-OH vitamin D less than 20 ng/mL (1,2).The Endocrine Society went on to further define vitamin Dinsufficiency as a level between 21 and 29 ng/mL (2).1. IOM ([place] of Medicine). 2010. Dietary reference intakes for calcium and D. [place]: The National Academies Press.2. Festus MF, Isa SHABAZZ, Aiden SWAN, et al. Evaluation, treatment, and prevention of vitamin D deficiency: an Endocrine Society clinical practice guideline. JCEM. 2010; 96(7):1911-30. PATIENT NOT FASTINGP ERFORMED BY: Pixel[employer]70 [address] RoadDublin [place] [id number] BY: Silver Fox EventsSt. Luke's Warren HospitalGaifcbvhzy1732 [facility] [id number] CBC (Auto) (40338)Ordered By : Clinical Services Director on 06-06-2013 Erythrocyte distribution width (RBC) [Ratio] 14.2 % Normal 12.3-15.4 [facility] Work Phone: Comment on above: PATIENT WAS FASTINGP ERFORMED BY: Bliips6370 [address] RoadDublin [place] [id number] Hematocrit (Bld) [Volume fraction] 42.0 % Normal 34.0-46.6 [facility] Work Phone: Comment on above: PATIENT WAS FASTINGP ERFORMED BY: [facility] Ylxjst5578 [address]ro[address] RoadDublin [place] [id number] Hemoglobin (Bld) [Mass/Vol] 13.9 g/dL Normal 11.1-15.9 [facility] Work Phone: Comment on above: PATIENT WAS FASTINGP ERFORMED BY: [employer] Wppvwh8953 [address] RoadDublin [place] [id number] MCH (RBC) [Entitic mass] 30.7 pg Normal 26.6-33.0 [facility] Work Phone: Comment on above: PATIENT WAS FASTINGP ERFORMED BY: [facility] Yvegyw3986 [address] RoadDublin [place] [id number] MCHC (RBC) [Mass/Vol] 33.1 g/dL Normal 31.5-35.7 [facility] prehensive Internal Medicine Work Phone: Comment on above: PATIENT WAS FASTINGP ERFORMED BY: JESUS LabCokya Ripasb2342 [address] RoadDublin [place] [id number] MCV (RBC) [Entitic vol] 93 fL Normal 79-97 C fitzgibbon hospitalensive Internal Medicine Work Phone: Comment on above: PATIENT WAS FASTINGP ERFORMED BY: [facility] Aaucis6415 [address] RoadDublin [place] [id number] Platelets (Bld) [#/Vol] 188 {x10E3/uL} Normal 155-379 [facility] Internal Medicine Work Phone: Comment on above: PATIENT WAS FASTINGP ERFORMED BY: JESUS LabCokya StoddardAwzskl4106 [address] RoadDublin [place] [id number] RBC (Bld) [#/Vol] 4.53 {x10E6/uL} Normal 3.77-5.28 Co [facility]ensive Internal [facility] Work Phone: Comment on above: PATIENT WAS FASTINGP ERFORMED BY: JESUS [facility] Vsiwkr4014 [address] RoadDublin [place] [id number] WBC (Bld) [#/Vol] 5.4 {x10E3/uL} Normal 3.4-10.8 [facility] Work Phone: Comment on above: PATIENT WAS FASTINGP ERFORMED BY: JESUS [facility] Yiodpo4663 [address] RoadDublin [place] [id number] Lipid Panel (11813)Ordered B y: Clinical Services Director on 06-06-2013 Cholesterol [Mass/Vol] 185 mg/dL Normal 100-199 Co [facility] Internal Medicine Work Phone: Comment on above: screening; PATIENT W FASTINGPERFORMED BY: JESUS [facility] Kmpjql8217 [address] RoadDublin [place] [id number] Cholesterol in HDL [Mass/Vol] 65 mg/dL Normal [facility] Internal Medicine Work Phone: Comment on above: According to ATP-III Guidelines, HDL-C >59 mg/dL is considered anegative risk factor for CHD. screening; PATIENT W FASTINGPERFORMED BY: JESUS [facility] Ndqmda9021 [address] RoadDublin [place] [id number] Cholesterol in LDL [Mass/Vol] 106 mg/dL Abnormal 0-99 [facility] Work Phone: Comment on above: screening; PATIENT W FASTINGPERFORMED BY: CB [facility] Xloahp7480 [address] RoadDublin [place] [id number] Cholesterol in LDL/Cholesterol in HDL [Mass ratio] 1.6 {ratio_units} Normal 0.0-3.2 [facility] Work Phone: Comment on above: screening; PATIENT W FASTINGPERFORMED BY: CB [facility] Rtlswr4857 [address] RoadDublin [place] [id number] Cholesterol in VLDL [Mass/Vol] 14 mg/dL Normal 5-40 [facility] Work Phone: Comment on above: screening; PATIENT W FASTINGPERFORMED BY: CB [facility] Zqewmg0679 [address] RoadDublin [place] [id number] Triglyceride [Mass/Vol] 68 mg/dL Normal 0-149 C omprehensive Internal Medicine Work Phone: Comment on above: screening; PATIENT W FASTINGPERFORMED BY: CB [facility] Vsbdeu0835 [address] RoadDublin [place] [id number] Metabolic Panel, Comprehensi ve (22838)Ordered By: Clinical Services Director on 06-06-2013 Albumin [Mass/Vol] 4.2 g/dL Normal 3.6-4.8 [facility] Internal Medicine Work Phone: Comment on above: PATIENT WAS FASTINGP ERFORMED BY: CB [facility] Nzovlx5936 [address] RoadDublin [place] [id number] Information: [id number] Albumin/Globulin [Mass ratio] 1.8 {ratio} Normal 1.1-2.5 [facility] Work Phone: Comment on above: PATIENT WAS FASTINGP ERFORMED BY: CB [facility] Vkeyhs3816 [address] RoadDublin [place] [id number] Information: [id number] ALP [Catalytic activity/Vol] 86 [iU]/L Normal 47-112 [facility] Work Phone: Comment on above: Effective June 16, 2013 the reference interval for Alkaline Phosphatase, S will be changing to: Age Male Female 0 - 1 day 45 - 111 45 - 111 2 - 5 days 46 - 119 46 - 119 6 - 10 days 48 - 229 48 - 229 11 - 30 days 59 - 414 59 - 414 1 - 6 months 91 - 445 91 - 445 7 - 12 months 124 - 341 124 - 341 1 - 3 years 130 - 317 130 - 317 4 - 6 years 133 - 309 133 - 309 7 - 12 years 134 - 349 134 - 349 13 years 143 - 396 68 - 209 14 years 107 - 340 62 - 149 15 years 84 - 254 54 - 121 16 years 71 - 186 49 - 108 17 years 61 - 146 45 - 101 18 years 56 - 127 43 - 101 >18 years 39 - 117 39 - 117 PATIENT WAS FASTINGP ERFORMED BY: [employer] Xuazhl8002 [facility] [id number] Information: [id number] ALT [Catalytic activity/Vol] 15 [iU]/L Normal 0-32 [facility] Work Phone: Comment on above: PATIENT WAS FASTINGP ERFORMED BY: [facility] Bzyhbg0148 [facility] [id number] Information: [id number] AST [Catalytic activity/Vol] 18 [iU]/L Normal 0-40 [facility] Work Phone: Comment on above: PATIENT WAS FASTINGP ERFORMED BY: [facility] Qfdgvc7285 [facility] [id number] Information: [id number] Bilirubin [Mass/Vol] 0.6 mg/dL Normal 0.0-1.2 [facility] Internal Medicine Work Phone: Comment on above: PATIENT WAS FASTINGP ERFORMED BY: [employer] Byjafg8684 [facility] [id number] Information: [id number] Calcium [Mass/Vol] 9.2 mg/dL Normal 8.6-10.2 [facility] Internal Medicine Work Phone: Comment on above: PATIENT WAS FASTINGP ERFORMED BY: CB [facility] Yunheu6954 Morgan RoadDublin [place] [id number] Information: 159030,[id number] Chloride [Moles/Vol] 106 mmol/L Normal 97-108 [facility] rehensive Internal Medicine Work Phone: Comment on above: PATIENT WAS FASTINGP ERFORMED BY: CB [facility] Bncylp4522 [address] RoadDublin [place] [id number] Information: [id number] CO2 [Moles/Vol] 23 mmol/L Normal 19-28 [facility] Internal Medicine Work Phone: Comment on above: PATIENT WAS FASTINGP ERFORMED BY: CB [facility] Ligiil9519 Morgan RoadDuin [place] [id number] Information: [id number] Creatinine [Mass/Vol] 0.81 mg/dL Normal 0.57-1.00 [facility] Internal [facility] Work Phone: Comment on above: PATIENT WAS FASTINGP ERFORMED BY: JESUS [facility] Nzkvln2695 Morgan RoadUnc Healthin [place] [id number] Information: [id number],[id number] GFR/1.73 sq M predicted among blacks CKD-EPI (S/P/Bld) [Vol rate/Area] 91 mL/min/1.73 Normal [facility] Work Phone: Comment on above: PATIENT WAS FASTINGP ERFORMED BY: CB [facility] Soduvh4035 Morgan RoadUnc Healthin [place] [id number] Information: 498353,Q96292 GFR/1.73 sq M predicted among non-blacks CKD-EPI (S/P/Bld) [Vol rate/Area] 79 mL/min/1.73 Normal [facility] Work Phone: Comment on above: PATIENT WAS FASTINGP ERFORMED BY: CB [facility] Fxfnae6892 [address] RoadDublin [place] [id number] Information: [id number] Globulin (S) [Mass/Vol] 2.4 g/dL Normal 1.5-4.5 C [facility] Internal Medicine Work Phone: Comment on above: PATIENT WAS FASTINGP ERFORMED BY: LabSelect [facility]6370 [facility] [id number] Information: [id number],[id number] Glucose [Mass/Vol] 98 mg/dL Normal 65-99 [facility] Internal Medicine Work Phone: Comment on above: PATIENT WAS FASTINGP ERFORMED BY: [address] [id number] Information: [id number] Potassium [Moles/Vol] 4.2 mmol/L Normal 3.5-5.2 [facility] Internal Medicine Work Phone: Comment on above: PATIENT WAS FASTINGP ERFORMED BY: [address] [id number] Information: [id number] Protein [Mass/Vol] 6.6 g/dL Normal 6.0-8.5 [facility] Internal Medicine Work Phone: Comment on above: PATIENT WAS FASTINGP ERFORMED BY: LabCharles Ville 9312270 [facility] [id number] Information: [id number] Sodium [Moles/Vol] 143 mmol/L Normal 134-144 [facility] Internal Medicine Work Phone: Comment on above: PATIENT WAS FASTINGP ERFORMED BY: Lab[facility]inte6370 [facility] [id number] Information: [id number],[id number] Urea nitrogen [Mass/Vol] 22 mg/dL Normal 8-27 [facility] Internal Medicine Work Phone: Comment on above: PATIENT WAS FASTINGP ERFORMED BY: LabCharles Ville 9312270 [facility] [id number] Information: [id number] Urea nitrogen/Creatinine [Mass ratio] 27 mg/mg Abnormal 07-08 [facility] Work Phone: Comment on above: PATIENT WAS FASTINGP ERFORMED BY: CB [facility] Iretjb7834 [address] RoadDublin [place] [id number] Information: [id number] Microscopic ExaminationOrder ed By: Clinical Services Director on 06-06-2013 Bacteria LM.HPF (Urine sed) [#/Area] None seen Normal [facility] Work Phone: Comment on above: PATIENT WAS FASTINGP ERFORMED BY: CB [facility] Zfobga8451 [address] RoadDublin [place] [id number] Epithelial cells LM.HPF (Urine sed) [#/Area] 0-10 Normal 0 - 10 Comprehensi ve Internal Medicine Work Phone: Comment on above: PATIENT WAS FASTINGP ERFORMED BY: CB [facility] Dfgall0296 [address] RoadDublin [place] [id number] Mucus Ql (Urine sed) Present Normal Comp rehensive Internal Medicine Work Phone: Comment on above: PATIENT WAS FASTINGP ERFORMED BY: CB [facility] Utjzfc9492 [address] RoadDublin [place] [id number] RBC LM.HPF (Urine sed) [#/Area] 0-3 Normal 0 - 3 [facility] Work Phone: Comment on above: PATIENT WAS FASTINGP ERFORMED BY: [facility] Wsukkn9117 [address] RoadDublin [place] [id number] WBC LM.HPF (Urine sed) [#/Area] 0-5 Normal 0 - 5 [facility] Work Phone: Comment on above: PATIENT WAS FASTINGP ERFORMED BY: CB [facility] Etsrvj0716 [address] RoadDublin [place] [id number] By: System Man ager on 06-06-2013 PAPIG6 Comment Normal [facility] Work Phone: Comment on above: Suggest follow up as clinically appropriate. NO INFORMATION GIVEN FOR PAPSpecimen Comment: No. of containers..01 CYTYC Thin Prep Vial Specimen processed a nd examined but unsatisfactory for evaluation becauseof insufficient cellularity. Darby Jefferson Micrographics Services Supervisor (ASCP) Edie Joy, Cyto technologist (ASCP) UNSATISFACTORY FOR E VALUATION. This liquid based Th inPrep(R) pap test was screened withthe use of an image guided system. The Pap smear is a s creening test designed to aid in thedetection of premalignant and malignant conditions of theuterine cervix. It is not a diagnostic procedure andshould not be used as the sole means of detecting cervicalcancer. Both false-positive and false-negative reports dooccur. The HPV DNA reflex c maximiliano were not met with this specimenresult therefore, no HPV testing was performed.Performed at: [address] [id number] Director: Anny Basilio MD, Phone: [phone] PAPIG6 . Normal [facility] Work Phone: Comment on above: NO INFORMATION GIVEN FOR PAPSpecimen Comment: No. of containers..01 CYTYC Thin Prep Vial URINALYSIS (61363)Ordered By : Clinical Services Director on 06-06-2013 Appearance (U) Clear Normal Comprehens hans Internal Medicine Work Phone: Comment on above: PATIENT WAS FASTINGP ERFORMED BY: SMS [employer] Nqzfmq8430 [address] RoadDublin [place] [id number] Bilirubin Ql (U) Negative Normal Comprehe nsive Internal Medicine Work Phone: Comment on above: PATIENT WAS FASTINGP ERFORMED BY: [employer] Tdilsz4076 [address] RoadDublin [place] [id number] Color (U) Yellow Normal [facility] Work Phone: Comment on above: PATIENT WAS FASTINGP ERFORMED BY: [employer] Gsaxtz5130 [address] RoadDublin [place] [id number] Glucose Ql (U) Negative Normal Comprehens hans Internal Medicine Work Phone: Comment on above: PATIENT WAS FASTINGP ERFORMED BY: [employer] Yxbgaf7884 [address] RoadDublin [place] [id number] Hemoglobin Ql (U) Negative Normal Compreh ensive Internal Medicine Work Phone: Comment on above: PATIENT WAS FASTINGP ERFORMED BY: JESUS [facility] Jkijsl1916 [address] RoadDublin [place] [id number] Ketones Ql (U) Negative Normal Comprehens hans Internal Medicine Work Phone: Comment on above: PATIENT WAS FASTINGP ERFORMED BY: JESUS [facility] Xeatpb8598 [address] RoadDublin [place] [id number] Leukocyte esterase Test strip Ql (U) Trace Abnormal [facility] Work Phone: Comment on above: PATIENT WAS FASTINGP ERFORMED BY: JESUS LabCokya StoddardJiwxdn5669 [address] RoadDublin [place] [id number] Microscopic observation LM Nom (Urine sed) See below: Normal [facility] Work Phone: Comment on above: PATIENT WAS FASTINGP ERFORMED BY: JESUS LabCokya StoddardHxfamd3554 [address] RoadDublin [place] [id number] Nitrite Ql (U) Negative Normal Comprehens hans Internal Medicine Work Phone: Comment on above: PATIENT WAS FASTINGP ERFORMED BY: JESUS LabUte StoddardHilagq8926 [address] RoadDublin [place] [id number] pH (U) 5.5 [pH] Normal 5.0-7.5 [facility] Work Phone: Comment on above: PATIENT WAS FASTINGP ERFORMED BY: JESUS LabUte StoddardDmpasn6735 [address] RoadDublin [place] [id number] Protein Ql (U) Negative Normal Comprehens hans Internal Medicine Work Phone: Comment on above: PATIENT WAS FASTINGP ERFORMED BY: JESUS [facility] Ybcspu1260 [address] RoadDublin [place] [id number] Specific gravity (U) [Rel density] 1.022 1 Normal 1.005-1.03 0 [facility] Work Phone: Comment on above: PATIENT WAS FASTINGP ERFORMED BY: JESUS [facility] Ytluny9206 [address] RoadDublin [place] [id number] Urobilinogen Test strip (U) [Mass/Vol] 0.2 mg/dL Normal 0.0-1.9 [facility] Work Phone: Comment on above: PATIENT WAS FASTINGP ERFORMED BY: [employer] Ipsgtz4161 [facility] [id number] TSH (44837)Ordered By: Chelsea m [address] Service on 11-01-2012 TSH Qn 1.090 {uIU/mL} Normal 0.450-4.50 0 [facility] Work Phone: Comment on above: PATIENT NOT FASTINGP ERFORMED BY: JESUS LabCoBayshore Community HospitalUezprm0667 [facility] [id number] Information: ADD [id number] AND DRAW FEE 99 9260 URIC ACID BLOOD (21246)Order ed By: Clinical Services Director on 11-01-2012 Urate [Mass/Vol] 4.5 mg/dL Normal 2.5-7.1 Comprehe nshuntsman [facility] institute Internal Medicine Work Phone: Comment on above: Therapeutic target f or gout patients: <6.0 PATIENT NOT FASTINGP ERFORMED BY: JESUS Silver Fox EventsBayshore Community HospitalLjqeeo5998 [facility] [id number] BILAT SCRN DIGITAL & CADOrde red By: Clinical Services Director on 01-06-2011 BILAT SCRN DIGITAL & CAD See Note Normal [facility] Work Phone: Comment on above: MAMMOGRAPHY - BILATE RAL SCREENING INDICATION:Female, 60 years old. Routine annual screening examination. PERTINENT HISTORY:Non-contributory. TECHNIQUE:Digital examination. Mediolateral oblique (MLO) and craniocaudad (CC)views of both breasts were obtained. CAD: CAD was performed on thisstudy. COMPARISON:Comparison is made with prior study dated November 30, 2009. FINDINGS:The breast composition is composed of scattered fibroglandular densities. There are no masses or suspicious microcalcifications. No other significant abnormalities are identified. There has been nosignificant change since the prior study. IMPRESSION:Normal bilateral screening mammogram. One year follow-up recommended. (1) ASSESSMENT CATEGORY:BIRADS Category 2: Benign finding(s). A letter regarding these resultswill be sent to the patient by the facility within 30 days. Approximately 10% of breast cancers are not detected by mammography. Anormal mammogram should not delay biopsy of a clinically suspiciousabnormality. Dictated on 01/06/11 0832 by Herlinda Segura MDranscribed on 01/06/11 1447 by ITS IMPORTSign by Sohan Segura MD on 01/06/11 1448 Sign by: Sohan Segura MD CBC, WHY WEIGHTOrdered By: Brea ystem Pipe F[address] Street Service on 06-17-2010 Erythrocyte distribution width (RBC) [Ratio] 13.3 % Normal 11.6-14.6 [facility] Work Phone: Hematocrit (Bld) [Volume fraction] 41.0 % Normal 37-47 [facility] Work Phone: Hemoglobin (Bld) [Mass/Vol] 14.1 g/dL Normal 12.0-16.0 [facility] Work Phone: MCH (RBC) [Entitic mass] 32.0 pg Normal 27.0-32.0 [facility] Work Phone: MCHC (RBC) [Mass/Vol] 34.3 g/dL Normal 32-36 Com prehensive Internal Medicine Work Phone: MCV (RBC) [Entitic vol] 93.2 fL Normal 81-99 C omprehensive Internal Medicine Work Phone: Platelet mean volume (Bld) [Entitic vol] 7.8 fL Normal 6.5-12.0 Comprehensiv e Internal Medicine Work Phone: Platelets (Bld) [#/Vol] 178 10*3/uL Normal 150-450 [facility] Work Phone: RBC (Bld) [#/Vol] 4.39 {M/mm3} Normal 4.2-5.4 Compr ehensive Internal Medicine Work Phone: WBC (Bld) [#/Vol] 3.5 10*3/uL Abnormal 4.4-11.0 Compre hensive Internal Medicine Work Phone: GLUOrdered By: System Manage r on 06-17-2010 Glucose [Mass/Vol] 93 mg/dL Normal 70-110 Compre [facility] Internal Medicine Work Phone: LIPIDOrdered By: System Sherrie wilcox on 06-17-2010 Cholesterol [Mass/Vol] 182 mg/dL Normal Co mprehensive Internal Medicine Work Phone: Comment on above: <200 mg/dL Desirable 200-240 mg/dL Borderline >240 mg/dL High Risk Cholesterol in HDL [Mass/Vol] 65 mg/dL Normal [facility] Work Phone: Comment on above: Reference Range HDL <40 mg/dL Low HDL Cholesterol HDL >or= 60 mg/dL High HDL Cholesterol Cholesterol in LDL [Mass/Vol] 106 mg/dL Normal 0-130 [facility] Work Phone: Cholesterol in VLDL [Mass/Vol] 11 mg/dL Normal 5-40 [facility] Work Phone: Triglyceride [Mass/Vol] 54 mg/dL Normal C omprehensive Internal Medicine Work Phone: Comment on above: Serum Triglycerides Reference Interval Normal <150 mg/dL Borderline high 150 - 199 mg/dL High 200 - 499 mg/dL Very High > or = 500 mg/dL TSH (12127)Ordered By: Chelsea guerra [address] Service on 02-10-2010 TSH Qn 1.090 {uIU/mL} Normal 0.450-4.50 0 [facility] Work Phone: Comment on above: PATIENT NOT FASTINGP ERFORMED BY: JESUS [facility]6370 [facility] [id number] Information: ADD [id number] AND DRAW FEE 99 2360 BILAT SCRN DIGITAL & CADOrde red By: Clinical Services Director on 11-30-2009 BILAT SCRN DIGITAL & CAD See Note Normal [facility] Work Phone: Comment on above: Exam Number: [id number] MAMMOGRAM, BILATERAL SCREENING DIGITAL AND CAD HISTORYRoutine screening. Full field digital images were obtained in mediolateral oblique andcraniocaudal projection. CAD images were reviewed. The current study is compared to the examinations of November 27, 2007,and December 01, 2008, from the [facility]. There is moderately dense fibroglandular parenchyma present. There isno skin thickening or retraction, architectural distortion, or clusterof suspicious microcalcifications. There is no dominant mass orsignificant interval change seen. If there is no suspicious palpableabnormality, followup mammogram in 1 year is recommended. IMPRESSIONThere is no radiographic evidence of malignancy identified. FINAL ASSESSMENTNegative. BIRADS Category 1. A letter regarding these results has been sent to the patient. This interpretation was rendered by a radiologist certified under theMammography Quality Standards Act of 1992 (MQSA). The mammograms werealso examined with computer-aided detection software ([employer], [employer].). Reported By: CUATE NOLAN M.D. MYOCARD PERF SPECT REST/STRE SSOrdered By: Clinical Services Director on 12-22-2008 MYOCARD PERF SPECT REST/STRESS See Note Normal [facility] Work Phone: Comment on above: Exam Number: [id number] MYOCARDIAL PERFUSION SCAN TECHNIQUEThe patient was injected with 11.3 mCi of Tc99m Cardiolite andsubsequently rest SPECT Cardiolite nuclear imaging was obtained in thehorizontal long, vertical long, and short axes views. The patientexercised on a Claudio protocol for 9 minutes, 30 seconds achieving apeak heart rate of 148 beats per minute (90% predicted maximumheart rate) with a peak blood pressure of 120/76 mmHg with a peak METcapacity of 10 METs. The patient was injected with 32.7 mCi hrNd86f Cardiolite and subsequently stress SPECT Cardiolite nuclearimaging was obtained in the horizontal long, vertical long, and shortaxes views. Gated Cardiolite study at peak stress was obtained. INTERPRETATIONRest and stress SPECT Cardiolite nuclear imaging demonstrate evidenceof a gastrointestinal tracer uptake most prominent at stress asopposed to rest. Otherwise there appears to be relative uniformtracer uptake and myocardial perfusion appearing within normal limits.There is end systolic thickening and brightening. The gatedCardiolite study demonstrates myocardial thickening and inward wallmotion. The reported LVEF is 69%. There are no myocardial perfusiondeficits known on the resting stress Polar Map images. IMPRESSION1) Rest and stress SPECT Cardiolite nuclear imaging demonstratesrelative uniform tracer uptake and myocardial perfusion appearingwithin normal limits.2) A gated Cardiolite study reports an LVEF of 69%. Reported By: HEATH CH M.D. CBCD,SMEAR DIFFOrdered By: Brea forman [address] Service on 11-23-2008 Eosinophils/100 WBC (Bld) 2 % Normal 0-5 [facility] Internal Medicine Work Phone: Erythrocyte distribution width (RBC) [Ratio] 14.1 % Normal 11.6-14.6 [facility] Internal Medicine Work Phone: Hematocrit (Bld) [Volume fraction] 38.2 % Normal 37-47 [facility] Work Phone: Hemoglobin (Bld) [Mass/Vol] 13.3 g/dL Normal 12.0-16.0 [facility] Internal Medicine Work Phone: Lymphocytes/100 WBC (Bld) 39 % Normal 19-41 [facility] Internal Medicine Work Phone: MCH (RBC) [Entitic mass] 32.2 pg Abnormal 27.0-32.0 [facility] Internal Medicine Work Phone: MCHC (RBC) [Mass/Vol] 34.8 g/dL Normal 32-36 Com prehensive Internal Medicine Work Phone: MCV (RBC) [Entitic vol] 92.3 fL Normal 81-99 [facility] Internal Medicine Work Phone: Platelets (Bld) [#/Vol] 194 10*3/uL Normal 150-450 [facility] Internal Medicine Work Phone: Platelets (Bld) [#/Vol] SeeNote Normal [facility] Internal Medicine Work Phone: Comment on above: Result: ADEQUATE RBC (Bld) [#/Vol] 4.13 {M/mm3} Abnormal 4.2-5.4 [facility] Internal Medicine Work Phone: WBC (Bld) [#/Vol] 3.1 10*3/uL Abnormal 4.4-11.0 Compre [facility] Internal Medicine Work Phone: CBCD,SMEAR DIFF 100 1 Normal Comprehen [facility] Internal Medicine Work Phone: CBCD,SMEAR DIFF 15 % Abnormal 0-10 [facility] Internal Medicine Work Phone: CBCD,SMEAR DIFF SeeNote Normal [facility] Internal Medicine Work Phone: Comment on above: Result: NORM C+C CBCD,SMEAR DIFF 44 % Abnormal 47-70 [facility] Internal Medicine Work Phone: COMP METABOLICOrdered By: Jay stem [address] Service on 11-23-2008 Albumin [Mass/Vol] 3.7 g/dL Normal 3.4-5.0 [facility] Internal Medicine Work Phone: Albumin/Globulin [Mass ratio] 1.2 {RATIO} Normal 0.9-2.4 [facility] Internal Medicine Work Phone: ALP [Catalytic activity/Vol] 85 U/L Normal 50-136 [facility] Internal Medicine Work Phone: ALT [Catalytic activity/Vol] 39 U/L Normal 30-65 [facility] Internal Medicine Work Phone: Anion gap [Moles/Vol] 6 mmol/L Normal 5-15 [facility] prehensive Internal Medicine Work Phone: AST [Catalytic activity/Vol] 22 U/L Normal 15-37 [facility] Internal Medicine Work Phone: Bilirubin [Mass/Vol] 0.55 mg/dL Normal 0.00-1.00 [facility] Internal Medicine Work Phone: Calcium [Mass/Vol] 8.6 mg/dL Normal 8.5-10.1 [facility] Internal Medicine Work Phone: Chloride [Moles/Vol] 107 mmol/L Normal 98-107 [facility] Internal Medicine Work Phone: CO2 [Moles/Vol] 29.1 mmol/L Normal 21.0-32.0 [facility] Internal Medicine Work Phone: Creatinine [Mass/Vol] 0.8 mg/dL Normal 0.6-1.0 [facility] Work Phone: GFR/1.73 sq M predicted among blacks MDRD (S/P/Bld) [Vol rate/Area] 96 mL/min/{1.73_m2} Normal Comprehensiv e Internal Medicine Work Phone: GFR/1.73 sq M.predicted MDRD (S/P/Bld) [Vol rate/Area] 79 mL/min/{1.73_m2} Normal Comprehensiv e Internal Medicine Work Phone: Globulin (S) [Mass/Vol] 3.0 g/dL Normal 2.7-4.2 C o[facility]rehensive Internal Medicine Work Phone: Glucose [Mass/Vol] 91 mg/dL Normal 70-110 Compre hensive Internal Medicine Work Phone: Potassium [Moles/Vol] 4.1 mmol/L Normal 3.5-5.1 Com prehensive Internal Medicine Work Phone: Protein [Mass/Vol] 6.7 g/dL Normal 6.4-8.2 [facility] Work Phone: Sodium [Moles/Vol] 142 mmol/L Normal 136-145 [facility] Work Phone: Urea nitrogen [Mass/Vol] 13 mg/dL Normal 7-18 [facility] Work Phone: Urea nitrogen/Creatinine [Mass ratio] 16.3 {RATIO} Normal 10-20 [facility] Work Phone: LIPIDOrdered By: System Sherrie wilcox on 11-23-2008 Cholesterol [Mass/Vol] 168 mg/dL Normal Co mprehensive Internal Medicine Work Phone: Comment on above: <200 mg/dL Desirable 200-240 mg/dL Borderline >240 mg/dL High Risk Cholesterol in HDL [Mass/Vol] 66 mg/dL Normal [facility] Work Phone: Comment on above: Reference Range HDL <40 mg/dL Low HDL Cholesterol HDL >or= 60 mg/dL High HDL Cholesterol Cholesterol in LDL [Mass/Vol] 93 mg/dL Normal 0-130 [facility] Work Phone: Cholesterol in VLDL [Mass/Vol] 9 mg/dL Normal 5-40 [facility] Work Phone: Triglyceride [Mass/Vol] 44 mg/dL Normal C omprehensive Internal Medicine Work Phone: Comment on above: Serum Triglycerides Reference Interval Normal <150 mg/dL Borderline high 150 - 199 mg/dL High 200 - 499 mg/dL Very High > or = 500 mg/dL TSHOrdered By: System Manage r on 11-23-2008 TSH Qn 1.10 {uIU/mL} Normal 0.34-4.82 Comprehensi ve Internal Medicine Work Phone: Rapid Strep Test, Office ([phone])Ordered By: Rukhsana Martinez on 06-01-2008 S. pyogenes Ag IA Ql (Unsp spec) Negative Normal [facility] Work Phone: Urinalysis, Office ([phone])Or dered By: Sybil Palafox on 05-10-2007 Bilirubin Ql (U) Negative Normal Comprehe nsive Internal Medicine Work Phone: Glucose Test strip (U) [Mass/Vol] Negative Normal [facility] Work Phone: Hemoglobin Ql (U) Non Hemolyzed Trace Normal [facility] Work Phone: Leukocyte esterase Test strip Ql (U) Moderate Normal [facility] Work Phone: Comment on above: aw Nitrite Ql (U) Negative Normal Comprehens hans Internal Medicine Work Phone: pH (U) 6.5 [pH] Normal [facility] Work Phone: Protein Ql (U) Negative Normal Comprehens hans Internal Medicine Work Phone: Specific gravity (U) [Rel density] 1.025 1 Normal [facility] Work Phone: Urobilinogen (24H U) [Mass/Time] Normal Normal [facility] Work Phone: Vital Signs Date Time Vital Sign Value Performing Clinician Facility 07-23-2022 15:28-0500 Diastolic blood pressure 91 mm[Hg] [facility] Work Phone: 07-23-2022 15:28-0500 Heart rate 77 /min [facility] Work Phone: 07-23-2022 15:28-0500 SaO2% (BldA) [Mass fraction] 99 % [facility] Work Phone: 07-23-2022 15:28-0500 Systolic blood pressure 157 mm[Hg] [facility] Work Phone: 07-23-2022 14:10-0500 Body height 154.94 cm [facility] Work Phone: 07-23-2022 14:10-0500 Body mass index (BMI) [Ratio] 26.8 kg/m2 [facility] Work Phone: 07-23-2022 14:10-0500 Body temperature 96.2 [degF] [facility] Work Phone: 07-23-2022 14:10-0500 Body weight 64.41 kg [facility] Work Phone: 07-23-2022 14:10-0500 Respiratory rate 18 /min [facility] Work Phone: 07-14-2015 08:34-0500 BMI (Body Mass Index) 25.89 kg/m2 [facility] Work Phone: 07-14-2015 08:34-0500 Body Temperature 98.1 [degF] [facility] Internal Medicine Work Phone: Comment on above: Method: Temporal 07-14-2015 08:34-0500 Body weight 62.[address] [facility] Internal Medicine Work Phone: 07-14-2015 08:34-0500 BP Diastolic 74 mm[Hg] [facility] Internal Medicine Work Phone: Comment on above: Patient Position: Sitting; Cuff Location : Left Arm; Cuff Size: Standard 07-14-2015 08:34-0500 BP Systolic 114 mm[Hg] [facility] Internal Medicine Work Phone: Comment on above: Patient Position: Sitting; Cuff Location : Left Arm; Cuff Size: Standard 07-14-2015 08:34-0500 BSA (Body Surface Area) 1.61 m[address] [facility] [facility] Work Phone: 07-14-2015 08:34-0500 Height 154.94 cm Brisa [facility] Internal Medicine Work Phone: 07-14-2015 08:34-0500 Pulse (Heart Rate) 80 /min [facility] Work Phone: Comment on above: Pattern: Regular 07-14-2015 08:34-0500 Pulse Oximetry 98 % [facility] Work Phone: Comment on above: Room air 07-14-2015 08:34-0500 Respiratory Rate 18 /min [facility] Work Phone: Comment on above: Pattern: Unlabored 06-18-2015 07:53-0500 BMI (Body Mass Index) 25.7 kg/m2 Brisa Ramirez [facility] Internal Medicine Work Phone: 06-18-2015 07:53-0500 Body Temperature 97.6 [degF] Brisa [facility] Internal Medicine Work Phone: Comment on above: Method: Temporal 06-18-2015 07:53-0500 Body weight 61.[address] [facility] Work Phone: 06-18-2015 07:53-0500 BP Diastolic 70 mm[Hg] [facility] Work Phone: Comment on above: Patient Position: Sitting; Cuff Location : Left Arm; Cuff Size: Standard 06-18-2015 07:53-0500 BP Systolic 110 mm[Hg] Brisa [facility] Internal Medicine Work Phone: Comment on above: Patient Position: Sitting; Cuff Location : Left Arm; Cuff Size: Standard 06-18-2015 07:53-0500 BSA (Body Surface Area) 1.6 m2 Brisa [facility] Internal Medicine Work Phone: 06-18-2015 07:53-0500 Height 154.94 cm [facility] Work Phone: 06-18-2015 07:53-0500 Pulse (Heart Rate) 70 /min [facility] Work Phone: Comment on above: Pattern: Regular 06-18-2015 07:53-0500 Pulse Oximetry 98 % Brisa [facility] Internal Medicine Work Phone: Comment on above: Room air 06-18-2015 07:53-0500 Respiratory Rate 20 /min [facility] Work Phone: Comment on above: Pattern: Unlabored 10-14-2014 10:03-0500 BMI (Body Mass Index) 28.02 kg/m2 Brisa Ramirez [facility] Internal Medicine Work Phone: 10-14-2014 10:03-0500 Body weight 67.27 kg [facility] Work Phone: 10-14-2014 10:03-0500 BP Diastolic 78 mm[Hg] [facility] Work Phone: Comment on above: Patient Position: Sitting; Cuff Location : Left Arm; Cuff Size: Standard 10-14-2014 10:03-0500 BP Systolic 118 mm[Hg] [facility] Work Phone: Comment on above: Patient Position: Sitting; Cuff Location : Left Arm; Cuff Size: Standard 10-14-2014 10:03-0500 BSA (Body Surface Area) 1.66 m2 [facility] Work Phone: 10-14-2014 10:03-0500 Height 154.94 cm Brisa [facility] Internal Medicine Work Phone: 10-14-2014 10:03-0500 Pulse (Heart Rate) 79 /min [facility] Work Phone: Comment on above: Pattern: Regular 10-14-2014 10:03-0500 Pulse Oximetry 95 % Brisa [facility] Internal Medicine Work Phone: Comment on above: Room air 10-14-2014 10:03-0500 Respiratory Rate 16 /min Brisa Mirelesi [facility] Work Phone: Comment on above: Pattern: Unlabored 07-17-2014 08:57-0500 BMI (Body Mass Index) 27.96 kg/m2 [facility] Work Phone: 07-17-2014 08:57-0500 Body Temperature 98.1 [degF] Brisa Bonelaurai [facility] Work Phone: Comment on above: Method: Temporal 07-17-2014 08:57-0500 Body weight 67.13 kg Brisa Mirelesi [facility] Work Phone: 07-17-2014 08:57-0500 BP Diastolic 70 mm[Hg] Brisa Bonelaurai [facility] Work Phone: Comment on above: Patient Position: Sitting; Cuff Location : Left Arm; Cuff Size: Standard 07-17-2014 08:57-0500 BP Systolic 110 mm[Hg] Brisa Mirelesi [facility] Work Phone: Comment on above: Patient Position: Sitting; Cuff Location : Left Arm; Cuff Size: Standard 07-17-2014 08:57-0500 BSA (Body Surface Area) 1.66 m2 Brisa Mirelesi [facility] Work Phone: 07-17-2014 08:57-0500 Height 154.94 cm Brisa Mirelesi [facility] Work Phone: 07-17-2014 08:57-0500 Pulse (Heart Rate) 70 /min Brisa Bonelaurai [facility] Work Phone: Comment on above: Pattern: Regular 07-17-2014 08:57-0500 Respiratory Rate 20 /min Brisa Bonelaurai [facility] Work Phone: Comment on above: Pattern: Unlabored 06-12-2014 09:23-0400 BMI (Body Mass Index) 29.1 kg/m2 [facility]isa [facility] Work Phone: 06-12-2014 09:23-0400 Body Temperature 97.6 [degF] Brisa Ramirez [facility] Internal Medicine Work Phone: Comment on above: Method: Temporal 06-12-2014 09:23-0400 Body weight 69.85 kg Brisa Ramirez [facility] Internal Medicine Work Phone: 06-12-2014 09:23-0400 BP Diastolic 78 mm[Hg] Brisa Ramirez [facility] Internal Medicine Work Phone: Comment on above: Patient Position: Sitting; Cuff Location : Left Arm; Cuff Size: Standard 06-12-2014 09:23-0400 BP Systolic 120 mm[Hg] Brisa Ramirez [facility] Internal Medicine Work Phone: Comment on above: Patient Position: Sitting; Cuff Location : Left Arm; Cuff Size: Standard 06-12-2014 09:23-0400 BSA (Body Surface Area) 1.69 m2 Brisa Ramirez [facility] Internal Medicine Work Phone: 06-12-2014 09:23-0400 Height 154.94 cm Brisa Ramirez [facility] Internal Medicine Work Phone: 06-12-2014 09:23-0400 Pulse (Heart Rate) 64 /min Brisa Ramirez [facility] Internal Medicine Work Phone: Comment on above: Pattern: Regular 06-12-2014 09:23-0400 Respiratory Rate 20 /min Brisa Ramirez [facility] Internal Medicine Work Phone: Comment on above: Pattern: Unlabored 04-10-2014 08:57-0400 BMI (Body Mass Index) 29.1 kg/m2 Brisa Rmairez [facility] Internal Medicine Work Phone: 04-10-2014 08:57-0400 Body Temperature 97.6 [degF] Brisa Ramirez [facility] Internal Medicine Work Phone: 04-10-2014 08:57-0400 Body weight 69.85 kg Brisa Ramirez [facility] Internal Medicine Work Phone: 04-10-2014 08:57-0400 BP Diastolic 62 mm[Hg] Brisa Mirelesi [facility] Internal Medicine Work Phone: Comment on above: Patient Position: Sitting; Cuff Location : Left Arm; Cuff Size: Standard 04-10-2014 08:57-0400 BP Systolic 104 mm[Hg] [facility] Internal Medicine Work Phone: Comment on above: Patient Position: Sitting; Cuff Location : Left Arm; Cuff Size: Standard 04-10-2014 08:57-0400 BSA (Body Surface Area) 1.[address] [facility] Internal Medicine Work Phone: 04-10-2014 08:57-0400 Height 154.[address] [facility] Internal Medicine Work Phone: 04-10-2014 08:57-0400 Pulse (Heart Rate) 56 /min [facility] Internal Medicine Work Phone: Comment on above: Pattern: Regular 04-10-2014 08:57-0400 Respiratory Rate 16 /min [facility] Internal Medicine Work Phone: Comment on above: Pattern: Unlabored 06-06-2013 08:05-0400 BMI (Body Mass Index) 26.83 kg/m2 [facility] Work Phone: 06-06-2013 08:05-0400 Body Temperature 97.6 [degF] [facility] Internal Medicine Work Phone: Comment on above: Method: Oral 06-06-2013 08:05-0400 Body weight 64.[address] [facility] Internal Medicine Work Phone: 06-06-2013 08:05-0400 BP Diastolic 70 mm[Hg] [facility] Internal Medicine Work Phone: Comment on above: Patient Position: Sitting; Cuff Location : Left Arm; Cuff Size: Standard 06-06-2013 08:05-0400 BP Systolic 116 mm[Hg] [facility] Internal Medicine Work Phone: Comment on above: Patient Position: Sitting; Cuff Location : Left Arm; Cuff Size: Standard 06-06-2013 08:05-0400 BSA (Body Surface Area) 1.63 m[address] [facility] Work Phone: 06-06-2013 08:05-0400 Height 154.94 cm Brisa [facility] Internal Medicine Work Phone: 06-06-2013 08:05-0400 Pulse (Heart Rate) 70 /min [facility] Work Phone: Comment on above: Pattern: Regular 06-06-2013 08:05-0400 Respiratory Rate 18 /min Brisa [facility] Internal Medicine Work Phone: Comment on above: Pattern: Unlabored 05-20-2013 08:14-0400 BMI (Body Mass Index) 31.65 kg/m2 Brisa Ramirez [facility] Internal Medicine Work Phone: 05-20-2013 08:14-0400 Body Temperature 98 [degF] [facility] Work Phone: Comment on above: Method: Temporal 05-20-2013 08:14-0400 Body weight 75.98 kg [facility] Work Phone: 05-20-2013 08:14-0400 BP Diastolic 68 mm[Hg] [facility] Work Phone: Comment on above: Patient Position: Sitting; Cuff Location : Left Arm; Cuff Size: Standard 05-20-2013 08:14-0400 BP Systolic 116 mm[Hg] [facility] Work Phone: Comment on above: Patient Position: Sitting; Cuff Location : Left Arm; Cuff Size: Standard 05-20-2013 08:14-0400 BSA (Body Surface Area) 1.75 m2 Brisa [facility] Internal Medicine Work Phone: 05-20-2013 08:14-0400 Height 154.94 cm Brisa [facility] Internal Medicine Work Phone: 05-20-2013 08:14-0400 Pulse (Heart Rate) 70 /min Brisa [facility] Internal Medicine Work Phone: Comment on above: Pattern: Regular 05-20-2013 08:14-0400 Pulse Oximetry 97 % Brisa [facility] Internal Medicine Work Phone: Comment on above: Room air 05-20-2013 08:14-0400 Respiratory Rate 16 /min [facility] Work Phone: Comment on above: Pattern: Unlabored 11-01-2012 11:22-0400 BMI (Body Mass Index) 31.65 kg/m2 Brisa Ramirez [facility] Internal Medicine Work Phone: 11-01-2012 11:22-0400 Body weight 75.98 kg [facility] Work Phone: 11-01-2012 11:22-0400 BP Diastolic 80 mm[Hg] [facility] Work Phone: Comment on above: Patient Position: Sitting; Cuff Location : Left Arm; Cuff Size: Large 11-01-2012 11:22-0400 BP Systolic 122 mm[Hg] [facility] Work Phone: Comment on above: Patient Position: Sitting; Cuff Location : Left Arm; Cuff Size: Large 11-01-2012 11:22-0400 BSA (Body Surface Area) 1.75 m2 [facility] Work Phone: 11-01-2012 11:22-0400 Height 154.94 cm [facility] Work Phone: 11-01-2012 11:22-0400 Pulse (Heart Rate) 68 /min Brisa [facility] Internal Medicine Work Phone: Comment on above: Pattern: Regular 11-01-2012 11:22-0400 Respiratory Rate 20 /min Brisa [facility] Internal Medicine Work Phone: Comment on above: Pattern: Unlabored 02-10-2010 07:55-0400 Body weight 73.48 kg [facility] Work Phone: 02-10-2010 07:55-0400 BP Diastolic 78 mm[Hg] [facility] Internal Medicine Work Phone: Comment on above: Patient Position: Sitting; Cuff Location : Left Arm; Cuff Size: Standard 02-10-2010 07:55-0400 BP Systolic 118 mm[Hg] [facility] Internal Medicine Work Phone: Comment on above: Patient Position: Sitting; Cuff Location : Left Arm; Cuff Size: Standard 02-10-2010 07:55-0400 Pulse (Heart Rate) 72 /min [facility] Internal Medicine Work Phone: Comment on above: Pattern: Regular 02-10-2010 07:55-0400 Respiratory Rate 18 /min [facility] Internal Medicine Work Phone: Comment on above: Pattern: Unlabored 12-01-2008 09:18-0400 Body weight 73.[address] [facility] Internal Medicine Work Phone: 12-01-2008 09:18-0400 BP Diastolic 78 mm[Hg] [facility] Internal Medicine Work Phone: Comment on above: Patient Position: Sitting; Cuff Location : Left Arm; Cuff Size: Standard 12-01-2008 09:18-0400 BP Systolic 116 mm[Hg] [facility] Internal Medicine Work Phone: Comment on above: Patient Position: Sitting; Cuff Location : Left Arm; Cuff Size: Standard 12-01-2008 09:18-0400 Head Circumference [address] [facility] Internal Medicine Work Phone: 12-01-2008 09:18-0400 Height [address] [facility] Internal Medicine Work Phone: 12-01-2008 09:18-0400 Pulse (Heart Rate) 74 /min [facility] Internal Medicine Work Phone: Comment on above: Pattern: Regular 12-01-2008 09:18-0400 Respiratory Rate 16 /min [facility] Internal Medicine Work Phone: Comment on above: Pattern: Unlabored 11-10-2008 09:14-0400 Body Temperature 98.2 [degF] Brisa Matteoi [facility] Work Phone: Comment on above: Method: Oral 11-10-2008 09:14-0400 Body weight 0 [facility] Work Phone: 11-10-2008 09:14-0400 BP Diastolic 78 mm[Hg] [facility] Work Phone: Comment on above: Patient Position: Sitting; Cuff Location : Left Arm; Cuff Size: Standard 11-10-2008 09:14-0400 BP Systolic 122 mm[Hg] [facility] Work Phone: Comment on above: Patient Position: Sitting; Cuff Location : Left Arm; Cuff Size: Standard 11-10-2008 09:14-0400 Head Circumference 0 cm [facility] Work Phone: 11-10-2008 09:14-0400 Height 0 cm [facility] Work Phone: 11-10-2008 09:14-0400 Pulse (Heart Rate) 74 /min [facility] Work Phone: Comment on above: Pattern: Regular 11-10-2008 09:14-0400 Respiratory Rate 18 /min [facility] Work Phone: Comment on above: Pattern: Unlabored 06-01-2008 08:32-0400 Body Temperature 98.6 [degF] [facility] Work Phone: Comment on above: Method: Oral 06-01-2008 08:32-0400 Body weight 72.58 kg [facility] Work Phone: 06-01-2008 08:32-0400 BP Diastolic 72 mm[Hg] [facility] Work Phone: Comment on above: Patient Position: Sitting; Cuff Location : Left Arm; Cuff Size: Standard 06-01-2008 08:32-0400 BP Systolic 108 mm[Hg] [facility] Work Phone: Comment on above: Patient Position: Sitting; Cuff Location : Left Arm; Cuff Size: Standard 06-01-2008 08:32-0400 Head Circumference 0 cm [facility] Work Phone: 06-01-2008 08:32-0400 Height 0 cm Brisa [facility] Internal Medicine Work Phone: 06-01-2008 08:32-0400 Pulse (Heart Rate) 72 /min Brisa [employer] [facility] Work Phone: Comment on above: Pattern: Regular 06-01-2008 08:32-0400 Respiratory Rate 18 /min [facility] Work Phone: Comment on above: Pattern: Unlabored 05-10-2007 09:54-0400 Body Temperature 98.2 [degF] Brisa [facility] Internal Medicine Work Phone: Comment on above: Method: Oral 05-10-2007 09:54-0400 Body weight 71.[address] [facility] Internal Medicine Work Phone: 05-10-2007 09:54-0400 BP Diastolic 78 mm[Hg] Brisa [facility] Internal Medicine Work Phone: Comment on above: Patient Position: Sitting; Cuff Location : Left Arm; Cuff Size: Standard 05-10-2007 09:54-0400 BP Systolic 132 mm[Hg] Brsia [facility] Internal Medicine Work Phone: Comment on above: Patient Position: Sitting; Cuff Location : Left Arm; Cuff Size: Standard 05-10-2007 09:54-0400 Head Circumference 0 cm Brisa [facility] Internal Medicine Work Phone: 05-10-2007 09:54-0400 Height 0 cm Brisa [facility] Internal Medicine Work Phone: 05-10-2007 09:54-0400 Pulse (Heart Rate) 76 /min Brisa [facility] Internal Medicine Work Phone: Comment on above: Pattern: Regular 05-10-2007 09:54-0400 Respiratory Rate 18 /min Brisa Bonei [facility] Work Phone: Comment on above: Pattern: Unlabored 11-12-2006 09:00-0400 BP Diastolic 70 mm[Hg] [facility] Internal Medicine Work Phone: Comment on above: Patient Position: Standing; Cuff Locatio n: Left Arm; Cuff Size: Standard Patient Position: Si tting; Cuff Location: Left Arm; Cuff Size: Standard 11-12-2006 09:00-0400 BP Systolic 94 mm[Hg] [facility] Internal Medicine Work Phone: Comment on above: Patient Position: Standing; Cuff Locatio n: Left Arm; Cuff Size: Standard 11-12-2006 09:00-0400 BP Systolic 110 mm[Hg] [facility] Internal Medicine Work Phone: Comment on above: Patient Position: Sitting; Cuff Location : Left Arm; Cuff Size: Standard 11-12-2006 09:00-0400 Pulse (Heart Rate) 76 /min [facility] Internal Medicine Work Phone: Comment on above: Pattern: Regular 11-12-2006 09:00-0400 Pulse (Heart Rate) 82 /min [facility] Internal Medicine Work Phone: Comment on above: Pattern: Regular 11-12-2006 08:59-0400 Body Temperature 98 [degF] [facility] Internal Medicine Work Phone: Comment on above: Method: Oral 11-12-2006 08:59-0400 Body weight [address] [facility] Internal Medicine Work Phone: 11-12-2006 08:59-0400 BP Diastolic 64 mm[Hg] [facility] Internal Medicine Work Phone: Comment on above: Patient Position: Supine; Cuff Location: Left Arm; Cuff Size: Standard 11-12-2006 08:59-0400 BP Systolic 104 mm[Hg] [facility] Internal Medicine Work Phone: Comment on above: Patient Position: Supine; Cuff Location: Left Arm; Cuff Size: Standard 11-12-2006 08:59-0400 Head Circumference 0 cm Brisa [employer] [facility] Work Phone: 11-12-2006 08:59-0400 Height 0 cm [facility] Work Phone: 11-12-2006 08:59-0400 Pulse (Heart Rate) 72 /min Brisa Bonei [facility] Work Phone: Comment on above: Pattern: Regular 11-12-2006 08:59-0400 Respiratory Rate 20 /min Brisa Bonei [facility] Work Phone: Comment on above: Pattern: Unlabored 05-01-2006 15:49-0400 Body Temperature 98.4 [degF] Brisa [employer] [facility] [employer] [facility] Work Phone: Comment on above: Method: Undefined 05-01-2006 15:49-0400 [facility] Work Phone: 05-01-2006 15:49-0400 BP Diastolic 80 mm[Hg] Brisa [employer] [facility] Work Phone: Comment on above: Patient Position: Sitting; Cuff Location : Left Arm; Cuff Size: Standard 05-01-2006 15:49-0400 BP Systolic 120 mm[Hg] Brisa [employer] [facility] [employer] [facility] Work Phone: Comment on above: Patient Position: Sitting; Cuff Location : Left Arm; Cuff Size: Standard 05-01-2006 15:49-0400 Head Circumference 0 cm [facility] Work Phone: 05-01-2006 15:49-0400 Height 0 cm Brisa [employer] [facility] Work Phone: 05-01-2006 15:49-0400 Pulse (Heart Rate) 83 /min [facility] Work Phone: Comment on above: Pattern: Regular 05-01-2006 15:49-0400 Respiratory Rate 19 /min Brisa Bonei [facility] Work Phone: Comment on above: Pattern: Unlabored 04-18-2006 13:57-0400 Body Temperature 98.5 [degF] [facility]: Comment on above: Method: Undefined 04-18-2006 13:57-0400 Body weight 0 kg Brisa [facility] Internal Medicine Work Phone: 04-18-2006 13:57-0400 BP Diastolic 76 mm[Hg] [facility] Work Phone: Comment on above: Patient Position: Sitting; Cuff Location : Left Arm; Cuff Size: Standard 04-18-2006 13:57-0400 BP Systolic 120 mm[Hg] [facility] Work Phone: Comment on above: Patient Position: Sitting; Cuff Location : Left Arm; Cuff Size: Standard 04-18-2006 13:57-0400 Head Circumference 0 [facility] Work Phone: 04-18-2006 13:57-0400 Height [address] [facility] Internal Medicine Work Phone: 04-18-2006 13:57-0400 Pulse (Heart Rate) 88 /min [facility] Work Phone: Comment on above: Pattern: Regular 04-11-2006 15:45-0400 Body Temperature 98.5 [degF] [facility] Work Phone: Comment on above: Method: Undefined 04-11-2006 15:45-0400 Body weight 71.22 kg Brisa [facility] Internal Medicine Work Phone: 04-11-2006 15:45-0400 BP Diastolic 82 mm[Hg] [facility] Internal Medicine Work Phone: Comment on above: Patient Position: Undefined; Cuff Locati on: Undefined; Cuff Size: Undefined 04-11-2006 15:45-0400 BP Systolic 128 mm[Hg] [facility] Work Phone: Comment on above: Patient Position: Undefined; Cuff Locati on: Undefined; Cuff Size: Undefined 04-11-2006 15:45-0400 Head Circumference 0 cm [facility] Work Phone: 04-11-2006 15:45-0400 Height 0 [facility] Work Phone: 04-11-2006 15:45-0400 Pulse (Heart Rate) 74 /min [facility] Internal Medicine Work Phone: Comment on above: Pattern: Regular 04-11-2006 15:45-0400 Respiratory Rate 16 /min [facility] Internal Medicine Work Phone: Comment on above: Pattern: Undefined Encounters Encounter Date Encounter Type Care Provider Facility Start: 08-14-2023 End: 08-14-2023 ambulatory JAGDEEP JIN Facility:[facility] Start: 05-30-2023 End: 05-30-2023 ambulatory [facility] Work Phone: Start: 05-30-2023 End: 05-30-2023 Patient encounter procedure [facility] Start: 05-29-2023 End: 05-29-2023 ambulatory [facility] Work Phone: Start: 05-29-2023 End: 05-29-2023 Patient encounter procedure [facility]-Outpatient Breast Imaging Work Phone: Start: 02-28-2023 End: 02-28-2023 ambulatory Radha Alcantar Facility:[facility] Start: 02-28-2023 End: 02-28-2023 Patient encounter procedure [facility] Work Phone: Start: 02-21-2023 End: 02-21-2023 ambulatory Saige Ortiz [facility] Work Phone: Start: 02-21-2023 End: 02-21-2023 Patient encounter procedure [facility] Work Phone: Start: 01-09-2023 End: 01-09-2023 ambulatory Saige Ortiz [facility] Work Phone: Start: 01-09-2023 End: 01-09-2023 Patient encounter procedure [facility]-Ultrasound, [facility] Start: 01-03-2023 End: 01-03-2023 Patient encounter procedure [facility]-Laboratory, [place] Start: 01-03-2023 End: 01-03-2023 ambulatory Saige Ortiz [facility] Work Phone: Start: 07-23-2022 End: 07-23-2022 Emergency department patient visit [facility] Facility:[facility] Start: 07-23-2022 End: 07-23-2022 Emergency department patient visit [facility]-Emergency Department Start: 07-14-2015 End: 07-14-2015 Office outpatient visit 25 minutes Brisa Ramirez [facility] Start: 06-18-2015 End: 06-18-2015 Office outpatient visit 40 minutes Brisa Ramirez [facility] Start: 06-11-2015 End: 06-11-2015 Lab Order Brisa Ramirez [facility] Start: 10-20-2014 End: 10-20-2014 Phone Encounter Brisa Ramirez [facility] Start: 10-14-2014 End: 10-14-2014 Office outpatient visit 15 minutes Brisa Bonelaurai [facility] Start: 07-17-2014 End: 07-17-2014 Office outpatient visit 15 minutes Brisa Bonelaurai [facility] Start: 06-12-2014 End: 06-12-2014 Office outpatient visit 15 minutes Brisa Ramirez [facility] Start: 06-09-2014 End: 06-09-2014 Phone Encounter Brisa Ramirez [facility] Start: 04-10-2014 End: 04-10-2014 Office outpatient visit 25 minutes Brisa Ramirez [facility] Start: 06-23-2013 End: 06-23-2013 Refill Request Brisa Ramirez [facility] Start: 06-06-2013 End: 06-06-2013 Patient encounter procedure Brisa Ramirez [facility] Start: 05-20-2013 End: 05-20-2013 Patient encounter procedure Brisa Ramirez [facility] Start: 11-01-2012 End: 11-01-2012 Patient encounter procedure Brisa Ramirez [facility] Start: 12-28-2010 End: 12-28-2010 Phone Encounter Brisa Ramirez [facility] Start: 02-10-2010 End: 02-10-2010 Office outpatient visit 15 minutes Brisa Ramirez [facility] Start: 12-01-2008 End: 12-01-2008 Office outpatient visit 25 minutes Brisa Ramirez [facility] Start: 11-10-2008 End: 11-10-2008 Patient encounter procedure Brisa Ramirez [facility] Start: 06-01-2008 End: 06-01-2008 Patient encounter procedure Brisa Ramirez [facility] Start: 05-10-2007 End: 05-10-2007 Office outpatient visit 10 minutes Brisa Ramirez [facility] Start: 03-06-2007 End: 03-06-2007 Historical Summary Brisa Ramirez [facility] Start: 11-12-2006 End: 11-13-2006 Office outpatient visit 25 minutes Brisa Ramirez [facility] Start: 11-01-2006 End: 11-01-2006 Refill Request Brisa Ramirez [facility] Start: 09-06-2006 End: 09-06-2006 Historical Summary rBisa Ramirez [facility] Start: 06-14-2006 End: 06-14-2006 Historical Summary Brisa Ramirez [facility] Start: 05-01-2006 End: 05-01-2006 Office outpatient visit 15 minutes Brisa Ramirez [facility] Start: 05-01-2006 End: 05-01-2006 Historical Summary Brisa Ramirez [facility] Start: 04-18-2006 End: 04-18-2006 Office outpatient visit 15 minutes Brisa Ramirez [facility] Start: 04-12-2006 End: 04-12-2006 Patient encounter procedure Brisa Ramirez [facility] Start: 04-12-2006 End: 04-12-2006 Patient encounter procedure Brisa Ramirez [facility] Start: 04-11-2006 End: 04-12-2006 Office outpatient new 30 minutes Brisa Ramirez [facility] Procedures Date Procedure Procedure Detail Performing Clinician Start: 05-29-2023 Screening mammography Start: 01-09-2023 US scan of thyroid Start: 07-23-2022 X-ray of chest posteroanterior view Start: 06-16-2015 End: 06-16-2015 Bilat Scrn Digital AND CAD Comments: See Note; NOTES: [facility] Imaging Services [address] [place] [address] Verdaamy 4d Bilat Scrn Digital AND CAD MR#: [id number] Acct: [id number] Name: JANET MCCALL Rep #: [id number] : 1950 F 64 From: Sohan Segura MD PCP: Brisa Ramirez MD Status: REG CLI Study: Bilat Scrn Digital AND CAD Date of Exam: 06/16/15 Exam# [id number] Ordering Dr: Brisa Ramirez MD MAMMOGRAPHY - BILATERAL SCREENING REASON FOR EXAM: Female, 64 years old. Routine annual screening examination. PERTINENT HISTORY: Non-contributory. TECHNIQUE: Digital examination. Mediolateral oblique (MLO) and craniocaudad (CC) views of both breasts were obtained. CAD: CAD was performed on this study. COMPARISON: Comparison is made with prior study dated June 12, 2014 and June 02, 2013. FINDINGS: Breast Composition: There are scattered areas of fibroglandular density. There are no dominant masses or suspicious calcifications. No other significant abnormalities are identified. There has been no significant change since the prior study. IMPRESSION: Stable bilateral screening mammogram. Yearly follow-up recommended. (A) ASSESSMENT CATEGORY: BIRADS Category 1: Negative. A letter regarding these results will be sent to the patient by the facility within 30 days. Approximately 10% of breast cancers are not detected by mammography. A normal mammogram should not delay biopsy of a clinically suspicious abnormality. Electronically Signed: Sohan Segura MD at 8:09 EST Tel [phone], Service support [phone], CC: Brisa Ramirez MD Outside Property Agent: Signed Brisa Ramirez Work Phone: Start: 06-12-2014 End: 06-12-2014 [facility]gay[facility]ine Digital & CAD Comments: See Note; NOTES: [facility] Imaging Services [address] [place] [address] Breast Imaging Report MR#: [id number] Acct: [id number] Name: JANET MCCALL Rep #: [id number] : 1950 F 63 From: Sohan Segura MD PCP: Brisa Ramirez MD Status: REG CLI Exam# [id number] Ordering Dr: Brisa Ramirez MD MAMMOGRAPHY - BILATERAL SCREENING REASON FOR EXAM: Female, 63 years old. Routine annual screening examination. PERTINENT HISTORY: Non-contributory. TECHNIQUE: Digital examination. Mediolateral oblique (MLO) and craniocaudad (CC) views of both breasts were obtained. CAD: CAD was performed on this study. COMPARISON: Comparison is made with prior study dated June 02, 2013 and May 24, 2012. FINDINGS: Breast Composition: There are scattered areas of fibroglandular density. There are no dominant masses or suspicious calcifications. No other significant abnormalities are identified. There has been no significant change since the prior study. IMPRESSION: Stable bilateral screening mammogram. Yearly follow-up recommended. (A) ASSESSMENT CATEGORY: BIRADS Category 2: Benign finding(s). A letter regarding these results will be sent to the patient by the facility within 30 days. Approximately 10% of breast cancers are not detected by mammography. A normal mammogram should not delay biopsy of a clinically suspicious abnormality. Electronically Signed: Sohan Segura MD at 10:51 EDT Tel [phone], Service support [phone], CC: Brisa Ramirez MD Outside Property Agent: Signed Brisa Ramirez Work Phone: Start: 06-02-2013 End: 06-02-2013 Bilat Scrn Digital & CAD Comments: See Note; NOTES: [facility] Imaging Services [address] [place] [address] Breast Imaging Report MR#: [id number] Acct: [id number] Name: JANET MCCALL Rep #: [id number] : 1950 F 62 From: Sohan Segura MD PCP: Brisa Ramirez MD Status: REG CLI Exam# [id number] Ordering Dr: Brisa Ramirez MD MAMMOGRAPHY - BILATERAL SCREENING REASON FOR EXAM: Female, 62 years old. Routine annual screening examination. PERTINENT HISTORY: Non-contributory. TECHNIQUE: Digital examination. Mediolateral oblique (MLO) and craniocaudad (CC) views of both breasts were obtained. CAD: CAD was performed on this study. COMPARISON: Comparison is made with prior study dated May 24, 2012 and January 06, 2011. FINDINGS: The breast composition is almost entirely fat. Glandular tissue is less than 25%. There are no dominant masses or suspicious calcifications. No other significant abnormalities are identified. There has been no significant change since the prior study. IMPRESSION: Stable bilateral screening mammogram. Yearly follow-up recommended. (A) ASSESSMENT CATEGORY: BIRADS Category 2: Benign finding(s). A letter regarding these results will be sent to the patient by the facility within 30 days. Approximately 10% of breast cancers are not detected by mammography. A normal mammogram should not delay biopsy of a clinically suspicious abnormality. Signed: Sohan Segura M.D. June 02, 2013 at 8:02:25 AM EDT [phone] Electronically Signed GP/GP If you are the referring physician and would like to consult with the radiologist who provided this interpretation, please contact Sohan Segura M.D. at [phone]. If this radiologist is unavailable, you will be directed to another radiologist to assist. If you are a patient with a question regarding this report, please contact your referring physician directly. Professional Interpretation Provided By: [facility], Phone , These documents contain legally protected and confidential health information intended only for the use of the individual or entity named above. If you are not the intended recipient, you are hereby notified that any disclosure, copying, distribution, or other use of these documents is strictly prohibited. If you have received this information in error, please notify the sender immediately and arrange for the return or destruction of these documents. CC: Brisa Ramirez MD Outside Property Agent: Signed Brisa Ramirez Work Phone: Plan of Treatment Date Care Activity Detail Author Start: 02-21-2023 [facility] Start: 06-18-2015 Patient Education Mammogram *: gynecological health [facility] Work Phone: Start: 06-18-2015 Procedure Education Eprescribed prescriptions (G8553) [facility] Work Phone: Start: 10-20-2014 25 hydroxy includes fractions if performed CALCIFEDIOL (89122) [facility] Work Phone: Start: 10-14-2014 Patient Education Depression: Brief Version *: depressed [facility] Work Phone: Start: 10-14-2014 Procedure Education Eprescribed prescriptions (G8553) [facility] Work Phone: Start: 07-17-2014 Procedure Education Eprescribed prescriptions (G8553) [facility] Work Phone: Start: 06-12-2014 Patient Education Mammogram *: gynecological health [facility] Work Phone: Start: 06-12-2014 Extractable nuclear antigen antibody any method Systemic Lupus Profile (04811) [facility] Work Phone: Comment on above: all labs to Dr. holly Start: 06-12-2014 Complement total hemolytic COMPLEMENT, TOTAL (CH50) (92729) [facility] Work Phone: Start: 06-12-2014 Complement antigen each component [facility] Work Phone: Start: 04-10-2014 Patient Education Arthritis Overview *: joint pain [facility] Work Phone: Start: 04-10-2014 Procedure Education Eprescribed prescriptions (G8553) [facility] Work Phone: Start: 06-06-2013 Patient Education [facility] Work Phone: Start: 06-06-2013 Cytp cerv/vag auto thin layer prep mnl screen Thin prep Pap (08711) [facility] Work Phone: Start: 05-20-2013 Lipid panel Lipid Panel (62692) [facility] Work Phone: Comment on above: screening Start: 05-20-2013 Glucose [Mass/Vol] Glucose (98388) [facility] Work Phone: Start: 11-10-2008 Provider Instructions for Treatment [facility] Work Phone: Start: 11-10-2008 Lipid panel Lipid Panel (73622) [facility] Work Phone: Start: 11-10-2008 Comprehensive metabolic panel METABOLIC PANEL, COMPREHENSIVE (96479) [facility] Work Phone: Start: 11-10-2008 Blood count manual cell count each CBC WITH MANUAL DIFF (23085) [facility] Work Phone: Start: 11-10-2008 TSH Qn TSH (62252) [facility] Work Phone: Start: 06-01-2008 Patient Education Sore throat: diagnosis and treatment [facility] Work Phone: Start: 06-01-2008 Provider Instructions for Treatment *URI Treatment [facility] Work Phone: Start: 06-01-2008 Cul bact xcpt urine blood/stool aerobic isol KRISTY CULTURE-OTHER (63849) [facility] Work Phone: Start: 11-13-2006 Provider Instructions for Treatment Stroke Red Flags [facility] Work Phone: Start: 04-18-2006 Provider Instructions for Treatment [facility] Work Phone: Start: 04-12-2006 Extractable nuclear antigen antibody any method EXTRCTBL NUCLR ANTGEN EA (33104) [facility] Work Phone: Start: 04-11-2006 Extractable nuclear antigen antibody any method ANTI-Sm (ANTI HOLLEY ANTIBODY) (04271) [facility] Work Phone: Start: 04-11-2006 Protein [Mass/Vol] ANTI-STACKER DRIVER (ANTI RIBONUCLEAR PROTEIN ANTIBODY) (53536) [facility] Work Phone: Start: 04-11-2006 Dna antibody kaltag/double stranded DNA ANTIBODY-NATV/DBL ST (22907) [facility] Work Phone: Antibody to lupus La protein measurement [facility] Antibody to SS-A measurement [facility] DNA double strand Ab [Units/volume] in Serum [facility] Nuclear Ab [Titer] i n Serum by Immunofluorescence [facility] Patient referral [facility] Work Phone: Holley extractable nu clear Ab [Presence] in Serum [facility] Work Phone: [facility] Work Phone: [facility] Work Phone: [facility] Work Phone: [facility] Work Phone: [facility] Work Phone: [facility] Work Phone: [facility] Work Phone: [facility] Work Phone: [facility] Work Phone: [facility] Work Phone: [facility] Work Phone: [facility] Work Phone: [facility] Work Phone: Immunizations Immunization Date Immunization Notes Care Provider Yadiel pizarro 11-07-2021 tetanus toxoid, redu nando diphtheria toxoid, and acellular pertussis vaccine, adsorbed [facility] 06-12-2014 varicella zoster imm une globulin Brisa Ramirez [facility] Work Phone: influenza, injectabl e, quadrivalent, contains preservative Brisa Ramirez [facility] Work Phone: Comment on above: at [facility] 05-26 tetanus and diphther ia toxoids, adsorbed, preservative free, for adult use (2 Lf of tetanus toxoid and 2 Lf of diphtheria toxoid) Brisa Ramirez [facility] Work Phone: Comment on above: 04-23 ER Payers Date Payer Category Payer Self-pay [id number] 2014 Unknown [id number] Unknown Unknown [id number] Unknown [id number] [id number] Unknown [id number] [id number] Unknown [id number] [id number] Unknown [id number] [id number] Social History Date Type Detail Facility Alcohol Use Alcohol Use [facility] Work Phone: Comment on above: 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 Author Type: Physician Type: Progress Notes Filed: 08/14/2023 8:45 AM Note Text: Janet Mccall is a 72 year old female who presents for problem visit with c/o vaginal dryness over the course of the pastmonth subsequent to resuming intercourse ~ 1-2 times week. Vagisil and moisturizer w/o improvement.. partner w/o issues HPI: as above OB History T2 L2 SAB0 IAB0 Ectopic1 Multiple0 Live Births0 Urgent Care Physician History LMP: Hysterectomy Age at Menarche: Age at First : Age at Menopause: Urgent Care Physician History Comments: Sexual Activity: Yes; Male; pt with a hysterectomy Contraception: No contraception data on record PAST MEDICAL HISTORY Diagnosis Date Adjustment disorder with depressed mood Benign neoplasm of colon Diarrhea Internal hemorrhoids without mention of complication Internal hemorrhoids without mention of complication Irritable bowel syndrome Migraine with aura Osteoarthrosis, unspecified whether generalized or localized, other specified sites Osteoporosis PMH - PAST MEDICAL HISTORY OF raynods disease PMH - PAST MEDICAL HISTORY OF carpal tunnel bilaterally PMH - PAST MEDICAL HISTORY OF carcinoma insitu of the cervix Rheumatoid arthritis(714.0) Rosacea Unspecified constipation Unspecified hemorrhoids without mention of complication PAST SURGICAL HISTORY Procedure Laterality Date APPENDECTOMY COLONOSCOP W/ OR W/O BRSH SPEC 01/24/02 Colonoscopy COLONOSCOPY W/BX 07/21/08 repeat 5 yrs. EXCISION OF LINGUAL TONSIL RX ECTOP PREG,UTER WALL W LESLIE VAGINAL HYSTERECTOMY 1989 Hysterectomy, vaginal Still has ovaries FAMILY HISTORY Problem Relation Age of Onset Cancer Mother lung, passed in mid 60's Breast Cancer Mother Alcohol/Drug Father alcohol other (epilepsy) Brother other (spot on lung) Sister other (gestational diabetes) Daughter None Daughter Social History Tobacco Use Smoking status: Never Smokeless tobacco: Never Substance Use Topics Alcohol use: Yes Comment: socially Drug use: No Current Outpatient Medications Medication Sig BUPROPION HCL (WELLBUTRIN ORAL) Take by mouth. ibuprofen (ADVIL) 200 mg ORAL tablet Take 1-2 tablets by mouth every 2 hours as needed. FOR PAIN. No current facility-administered medications for this visit. Allergies As of Date: 08/14/2023 Allergen Noted Reaction HAYFEVER [HOMEOPATHIC PRODUCTS] 05/25/2005 Fully Assessed 09/12/2016 REVIEW OF SYSTEMS Abdomen: No bloating, early satiety, indigestion, or increased flatulence. No abdominal pain, nausea, vomiting, diarrhea, or constipation. Bladder: No dysuria, gross hematuria, urinary frequency, urinary urgency, or incontinence. Breast: No breast lumps, nipple d/c, overlying skin changes, redness or skin retraction. Expanded ROS: N/A Allergies and current medication updated:Yes EXAM: There were no vitals taken for this visit. GENERAL: pleasant, female in no apparent distress HEENT: JANNY: DERMATOLOGY: BREAST: CHEST: ABDOMEN: soft, non-tender, and no masses PELVIC: external genitalia normal, normal Bartholin's glands, urethra, [place]'s glands, no vulvar lesions, good vaginal support, physiologic discharge present, normal appearing perineal body and perianal region, cervix surgically absent BIMANUAL: no adnexal masses, non-tender, and uterus surgically absent EXTREMITIES: normal ASSESSMENT AND PLAN: Atrophic vagina;l mucosa and intercourse related injury. Astroglide, pink FTFC > 30 min discussion re vaginal health Single course of Premarin vagina cream Jagdeep Jin MD [facility] Evaluation note Note Date & Type Note Facility Evaluation note No assessment information availa ble [facility] Work Phone: Hospital Discharge instructions Note Date & Type Note Facility Hospital Discharge instructions Additional Instructions X-ray showed no broken bones. You have rib contusions or bruising. Rest, ice, take Tylenol ibuprofen every 6 hours as needed. This can take several days to weeks to fully heal. If symptoms significantly worsen come back to the ER. [facility] Work Phone: Family History No Family History Records FoundUnknown Family Member Name Dates Details Brother 1 Comments:epilepsy Status:Active Father Comments:alcoholism Status:Active Mother Comments:breast ca 62 yo Status:Active Unknown Family Member Name Dates Details Brother 1 Comments:epilepsy Status:Active Father Comments:alcoholism Status:Active Mother Comments:breast ca 62 yo Status:Active Instructions Name Dates Details How to access health informa tion online Indication:Anxiety Start:14-Jul-2015 Instruction Type:Patient Education How to access health informa tion online - Detail Indication:Anxiety Start:14-Jul-2015 Instruction Type:Patient Education Patient Instructions Indication:Anxiety Start:14-Jul-2015 Instruction Type:Provider Instructions for Treatment How to access health informa tion online Indication:Well woman exam with routine gynecological exam Start:18-Jun-2015 Instruction Type:Patient Education How to access health informa tion online - Detail Indication:Well woman exam with routine gynecological exam Start:18-Jun-2015 Instruction Type:Patient Education Patient Instructions Indication:Well woman exam with routine gynecological exam Start:18-Jun-2015 Instruction Type:Provider Instructions for Treatment How to access health informa tion online Indication:Depression Start:14-Oct-2014 Instruction Type:Patient Education How to access health informa tion online - Detail Indication:Depression Start:14-Oct-2014 Instruction Type:Patient Education Patient Instructions Indication:Depression Start:14-Oct-2014 Instruction Type:Provider Instructions for Treatment Patient Instructions Indication:Encounter for screening for malignant neoplasm of cervix Start:12-Jun-2014 Instruction Type:Provider Instructions for Treatment How to access health informa tion online Indication:Rheumatoid arthritis Start:10-Apr-2014 Instruction Type:Patient Education How to access health informa tion online - Detail Indication:Rheumatoid arthritis Start:10-Apr-2014 Instruction Type:Patient Education Patient Instructions Indication:Rheumatoid arthritis Start:10-Apr-2014 Instruction Type:Provider Instructions for Treatment Patient Instructions Indication:Encounter for screening for malignant neoplasm of cervix Start:06-Jun-2013 Instruction Type:Provider Instructions for Treatment Patient Instructions Indication:CONTACT DERMATITIS AND OTHER ECZEMA DUE TO PLANTS (EXCEPT FOOD) Start:20-May-2013 Instruction Type:Provider Instructions for Treatment Patient Instructions Indication:Pain of great toe (Renamed from Great toe pain) Start:01-Nov-2012 Instruction Type:Provider Instructions for Treatment Name Dates Details Anxiety : How to access heal th information online Indication:Anxiety Anxiety : How to access heal th information online - Detail Indication:Anxiety Anxiety : Patient Instructio ns Indication:Anxiety Well woman exam with routine gynecological exam : How to access health information online Indication:Well woman exam with routine gynecological exam Well woman exam with routine gynecological exam : How to access health information online - Detail Indication:Well woman exam with routine gynecological exam Well woman exam with routine gynecological exam : Patient Instructions Indication:Well woman exam with routine gynecological exam Depression : How to access h ealth information online Indication:Depression Depression : How to access h ealth information online - Detail Indication:Depression Depression : Patient Instruc tions Indication:Depression Encounter for screening for malignant neoplasm of cervix : Patient Instructions Indication:Encounter for screening for malignant neoplasm of cervix Rheumatoid arthritis : How t o access health information online Indication:Rheumatoid arthritis Rheumatoid arthritis : How t o access health information online - Detail Indication:Rheumatoid arthritis Rheumatoid arthritis : Patie nt Instructions Indication:Rheumatoid arthritis CONTACT DERMATITIS AND OTHER ECZEMA DUE TO PLANTS (EXCEPT FOOD) : Patient Instructions Indication:CONTACT DERMATITIS AND OTHER ECZEMA DUE TO PLANTS (EXCEPT FOOD) Pain of great toe (Renamed f rom Great toe pain) : Patient Instructions Indication:Pain of great toe (Renamed from Great toe pain) Chief Complaint and Reason for Visit Chief Complaint CHEST OTHER Chief Complaint EORDER ENLARGE THYROID GLAND; HAS HAD GLOBUS SENSATION Chief Complaint EORDER ENLARGE THYROID GLAND; HAS HAD GLOBUS SENSATION SKIN Chief Complaint SKIN SKIN SCREENING Advance Directives No Advanced Directives Records Found Advance Directive Response Recorded Date/ Time Living Will No July 23 2:15pm Power of Parachutist/Combatant Diver Qualified No July 23, 2022 2:15pm Advance Directive Response Recorded Date/ Time Living Will No July 23 3:15pm Power of Parachutist/Combatant Diver Qualified No July 23, 2022 3:15pm Summary Purpose Additional Source Comments Goals (unrecognized section and content) Goals may be documented in a n alternate sectionGoals may be documented in an alternate sectionGoals may be documented in an alternate sectionGoals may be documented in an alternate sectionGoals may be documented in an alternate sectionGoals may be documented in an alternate section Care Teams (unrecognized sec tion and content) Team Status: Active Member Role Status Dates Dr. Adryan Crenshaw MD Family Provider Active Saige Ortiz , DO Primary Care Provider Active Team Status: Inactive Member Role Status Dates Saige Ortiz , DO Primary Care Provi rm, Attending Provider, Referring Provider Active Team Status: Active Member Role Status Dates Saige M Angel , DO Primary Care Provi rm, Attending Provider, Referring Provider Active Team Status: Inactive Member Role Status Dates Saige Mcdonougher , DO Primary Care Provider Active Radha Alcantar PA-C Attending Provider, Referring Prov ider Active Team Status: Active Member Role Status Dates Saige Ortiz , DO Primary Care Provider Active Linda Statmisha , PLASTIC INSTALLER-C Attending Provider, Referr ing Provider Active Team Status: Inactive Member Role Status Dates Saige Ortiz , DO Primary Care Provider Active Linda Stathopoulos , PLASTIC INSTALLER-C Attending Provider, Referr ing Provider Active INFORMATION SOURCE (unrecogn ized section and content) DATE CREATED AUTHOR 03/12/2023 [facility] DATE CREATED AUTHOR WONG ARZOLA 08/18/2023 [facility] FOR RECORDS PERTAINING TO PATIENTS WHO ARE OR HAVE BEEN ENROLLED IN A CHEMICAL DEPENDENCY/SUBSTANCEABUSE PROGRAM, SOME INFORMATION MAY BE OMITTED. This clinical summary was aggregated from multiple sources. Caution should be exercised in using it in the provision of clinical care. This summary normalizes information from multiple sources, and as a consequence, information in this document may materially change the coding, format and clinical context of patient data. In addition, data may be omitted in some cases. CLINICAL DECISIONS SHOULD BE BASED ON THE PRIMARY CLINICAL RECORDS. [employer] provides no warranty or guarantee of the accuracy or completeness of information in this document.
[2025-05-15 12:11] LABS: Hematocrit 44.5 % (37-47); Hemoglobin 14.8 g/dL (12.0-15.0); Mean Corp Hgb Conc 33.3 g/dL (32-36); Mean Corpuscular Volume 96.5 fL (81-99); Mean Platelet Vol. 9.8 fl (6.2-12.0); Platelet Count 187 K/mm3 (150-450); RBC Distribution Width CV 14.1 % (11.6-14.6); RBC Distribution Width SD 50.4 fl (35.1-43.9); Red Blood Count 4.61 M/mm3 (4.2-5.4); White Blood Count 4.7 K/mm3 (4.4-11.0)
[2025-05-15 13:14] LABS: AST(SGOT) 26 U/L (<=31); Alanine Aminotransfer ALT/SGPT 26 U/L (<=34); Albumin, Serum 4.1 g/dL (3.4-4.8); Alkaline Phosphatase 86 U/L (35-104); Anion Gap 14 (5-15); BUN 11 mg/dL (4-19); BUN/Creat Ratio 13.9 RATIO (10-20); Calcium,Total 8.7 mg/dL (7.6-11.0); Carbon Dioxide 21.3 mmol/L (21.0-32.0); Chloride 104 mmol/L (98-108); Cholesterol 235 mg/dL (<=200); Globulin 1.8 g/dL (2.2-4.2); Glucose 84 mg/dL (70-99); Low Density Lipoprotein Calc. 115 mg/dL; Potassium 4.0 mmol/L (3.3-5.1); Triglycerides 154 mg/dL; Very Low Density Lipoprotein 31 mg/dL (5-40); Vitamin D,25 Hydroxy 37.2 ng/mL (30-100); cholesterol:hdl ratio screen 2.63
[2025-05-19 15:08] LABS: Dilute Russell Viper Venom 37.3 sec (0.0-47.0); Interpretation Comment: (.); PTT-LA 30.2 sec (0.0-43.5)
== END | disposition home or self-care (01) ==
LOC: MFPLAB 10:04
PROVIDERS: PCP Family Medicine; Visit Provider Family Medicine
DX: I10 Essential (primary) hypertension (principal); M32.9 Systemic lupus erythematosus, unspecified; E04.9 Nontoxic goiter, unspecified; Z13.1 Encounter for screening for diabetes mellitus; Z13.220 Encounter for screening for lipoid disorders
CPT/HCPCS: 36415; 80053; 80061; 82306; 83036; 84443; 85027

== ENCOUNTER → 2025-08-04 | Outpatient (CLI) | payer MEDICARE, SELFPAY ==
--- NOTE | 2025-08-04 14:54 | BD_ITS ---
PROCEDURE: DEXA BONE DENSITY STUDY 08/04/2025 REASON FOR EXAM: F, age 74 y/o . Postmenopausal. Patient is currently being treated for osteoporosis. TECHNIQUE: Procedure Code: BDDBD Modality: DX Procedure: DEXA BONE DENSITY STUDY COMPARISON: None FINDINGS: BMD and T-SCORES Lumbar spine: 0.713 g/cm2, T-score -2.8 Levels: L1 through L4 Left femoral neck: 0.581 g/cm2, T-score -2.4 Left total hip: 0.727 g/cm2, T-score -1.8 Right femoral neck: 0.575 g/cm2, T-score -2.5 Right total hip: 0.677 g/cm2, T-score -2.2 The World Health Organization has defined the following categories based on bone density: Normal bone density: T-score equal to or greater than -1.0 Osteopenia: T-score between -1.0 and -2.5 Osteoporosis: T-score equal to or less than -2.5 FRAX (or Comparable) Fracture Risk Assessment: 10 Year Probability of Fracture: Major Osteoporotic Fracture: 15% Hip Fracture: 4.2% (Note: FRAX is not to be reported in setting of normal range bone density, osteoporosis on DEXA, known history of osteoporosis, prior osteoporotic hip or vertebral fracture, or for any patient undergoing pharmacological treatment for bone loss.) The National Osteoporosis Foundation (NOF) recommends pharmacological treatment for patients with a FRAX 10-year risk of 3% or higher for a hip fracture, or 20% or higher for a major osteoporotic fracture, to prevent osteoporosis and reduce fracture risk. The patient does meet the pharmacological treatment recommendations for prevention of osteoporosis. BD/Dexa Bone Density Study IMPRESSION: OSTEOPOROSIS. Recommend follow-up 1 year Reading Location: [id number]
== END | disposition home or self-care (01) ==
PROVIDERS: PCP Family Medicine; Referring Provider Family Medicine; Visit Provider Family Medicine
DX: M81.0 Age-related osteoporosis without current pathological fracture (principal); Z78.0 Asymptomatic menopausal state
CPT/HCPCS: 77080